=== PATIENT | male | born 1955 | race American Indian/Alaskan Native ===

== ENCOUNTER 2017-02-04 23:58 | Inpatient (IN) | payer MEDICARE ==
[2017-02-05 01:24] LABS: Anion Gap 18 mmol/L; Blood Urea Nitrogen 29 mg/dL (9-20); Calcium 8.7 mg/dL (8.4-10.2); Carbon Dioxide 27 mmol/L (22-30); Chloride 102.4 mmol/L (98-107); Glucose 133 mg/dL (75-100); Potassium 4.9 mmol/L (3.6-5.0); Sodium 142 mmol/L (137-145)
[2017-02-05 01:29] LABS: Basophils % (Auto) 0.6 % (0.0-1.8); Eosinophils % (Auto) 0.1 % (0.0-4.3); Mean Corpuscular HGB Conc 30 % (32-34); Platelet Count 264 K/mm3 (140-440); Red Blood Count 5.91 M/mm3 (3.65-5.03); White Blood Count 13.8 K/mm3 (4.5-11.0)
--- NOTE | 2017-02-05 01:30 | Emergency Department Report ---
ED General Adult HPI - General Chief complaint: Medical Clearance Stated complaint: ABNORMAL LABS Time Seen by Provider: 02/05/17 01:06 Source: EMS Mode of arrival: Stretcher Limitations: Other - History of Present Illness Initial comments: Patient is a 61-year-old male past medical history of cerebral palsy and intellectual deficiency who presents with abdominal pain and bloating. 3 is limited due to patient's mental status. Patient was having stomach bloating and his PCP ordered a KUB which showed dilated small bowel loops. Patient states that he is in pain. He is unsure when his last bowel movement was. Severity scale (0 -10): 0 - Related Data Allergies Allergy/AdvReac Type Severity Reaction Status Date / Time No Known Allergies Allergy Unverified 02/05/17 00:08 ED Review of Systems ROS: Stated complaint: ABNORMAL LABS Other details as noted in HPI Comment: Unobtainable due to pts medical conditions (intellectual deficiency) Constitutional: denies: chills, fever Eyes: denies: eye pain, eye discharge, vision change ENT: denies: ear pain, throat pain Respiratory: denies: cough, shortness of breath, wheezing Cardiovascular: denies: chest pain, palpitations Endocrine: no symptoms reported Gastrointestinal: denies: abdominal pain, nausea, diarrhea Genitourinary: denies: urgency, dysuria Musculoskeletal: denies: back pain, joint swelling, arthralgia Skin: denies: rash, lesions Neurological: denies: headache, weakness, paresthesias Psychiatric: denies: anxiety, depression Hematological/Lymphatic: denies: easy bleeding, easy bruising ED Past Medical Hx - Social History Smoking Status: Never Smoker Substance Use Type: None ED Physical Exam - General Limitations: Other General appearance: alert, in no apparent distress - Head Head exam: Present: atraumatic, normocephalic - Eye Eye exam: Present: normal appearance - ENT ENT exam: Present: mucous membranes moist - Neck Neck exam: Present: normal inspection - Respiratory Respiratory exam: Present: normal lung sounds bilaterally. Absent: respiratory distress - Cardiovascular Cardiovascular Exam: Present: regular rate, normal rhythm. Absent: systolic murmur, diastolic murmur, rubs, gallop - GI/Abdominal GI/Abdominal exam: Present: soft, normal bowel sounds - Rectal Rectal exam: Present: deferred - Extremities Exam Extremities exam: Present: normal inspection - Back Exam Back exam: Present: normal inspection - Neurological Exam Neurological exam: Present: alert, oriented X3 - Psychiatric Psychiatric exam: Present: normal affect, normal mood - Skin Skin exam: Present: warm, dry, intact, normal color. Absent: rash ED Course Vital Signs 02/05/17 00:21 Temperature 98.9 F Pulse Rate 90 Respiratory 16 Rate Blood Pressure 115/70 [Left] O2 Sat by Pulse 98 Oximetry - Consultations Consultation #1: 02/05/17 04:29 Consulted general surgeon station examiner Dr. Haynes. Patient has nothing that needs to be acutely operated on he will be seen tomorrow by the general surgeon. ED Medical Decision Making - Lab Data Result diagrams: 02/05/17 00:31 02/05/17 00:31 Lab Results 02/05/17 02/05/17 02/05/17 Range/Units 00:31 00:31 00:31 WBC 13.8 H (4.5-11.0) K/mm3 RBC 5.91 H (3.65-5.03) M/mm3 Hgb 11.4 L (11.8-15.2) gm/dl Hct 37.6 (35.5-45.6) % MCV 64 L (84-94) fl MCH 19 L (28-32) pg MCHC 30 L (32-34) % RDW 19.0 H (13.2-15.2) % Plt Count 264 (140-440) K/mm3 Lymph % (Auto) 8.9 L (13.4-35.0) % Hunt % (Auto) 14.1 H (0.0-7.3) % Eos % (Auto) 0.1 (0.0-4.3) % Baso % (Auto) 0.6 (0.0-1.8) % Lymph # 1.2 (1.2-5.4) K/mm3 Hunt # 1.9 H (0.0-0.8) K/mm3 Eos # 0.0 (0.0-0.4) K/mm3 Baso # 0.1 (0.0-0.1) K/mm3 Seg Neutrophils % 76.3 H (40.0-70.0) % Seg Neutrophils # 10.5 H (1.8-7.7) K/mm3 Sodium 142 (137-145) mmol/L Potassium 4.9 (3.6-5.0) mmol/L Chloride 102.4 (98-107) mmol/L Carbon Dioxide 27 (22-30) mmol/L Anion Gap 18 mmol/L BUN 29 H (9-20) mg/dL Creatinine 1.0 (0.8-1.5) mg/dL Estimated GFR > 60 ml/min BUN/Creatinine Ratio 29.00 % Glucose 133 H (75-100) mg/dL Calcium 8.7 (8.4-10.2) mg/dL Total Bilirubin 0.40 (0.1-1.2) mg/dL Direct Bilirubin < 0.2 (0-0.2) mg/dL Indirect Bilirubin 0.2 mg/dL AST 24 (5-40) units/L ALT 18 (7-56) units/L Alkaline Phosphatase 90 (35-129) units/L Total Protein 7.7 (6.3-8.2) g/dL Albumin 3.7 L (3.9-5) g/dL Albumin/Globulin Ratio 0.9 % Lipase 10 L (13-60) units/L - Radiology Data Radiology results: report reviewed, image reviewed CT abdomen and pelvis with contrast: Showed dilated small bowel loops concerning for either mild ileus or incomplete obstruction - Medical Decision Making Chief medical diagnosis: Ileus secondary to incomplete obstruction Differential medical diagnosis: Constipation, hypokalemia I will get CBC, CMP, blood coags, pain medication, and NG suction, fluids Discussed Dr. Haynes patient will be admitted to the hospitalist service and patient will be seen by him in the morning. Critical care attestation.: If time is entered above; I have spent that time in minutes in the direct care of this critically ill patient, excluding procedure time. ED Disposition Clinical Impression: Abdominal bloating, Ileus, Mechanical gastrointestinal obstruction Disposition: OP ADMIT IP TO THIS HOSP Is pt being admited?: Yes Does the pt Need Aspirin: No Condition: Stable
[2017-02-05 01:37] LABS: Hematocrit 37.6 % (35.5-45.6); Hemoglobin 11.4 gm/dl (11.8-15.2); Mean Corpuscular Hemoglobin 19 pg (28-32); Mean Corpuscular Volume 64 fl (84-94)
[2017-02-05 01:42] LABS: Alanine Aminotransferase 18 units/L (7-56); Albumin 3.7 g/dL (3.9-5); Albumin/Globulin Ratio 0.9 %; Alkaline Phosphatase 90 units/L (35-129); Lipase 10 units/L (13-60); Total Protein 7.7 g/dL (6.3-8.2)
[2017-02-05 01:45] LABS: Bilirubin,Direct < 0.2 mg/dL (0-0.2); Bilirubin,Indirect 0.2 mg/dL
[2017-02-05] MEDS ORDERED: NACL ONE (01:45)
--- NOTE | 2017-02-05 03:10 | Cat Scan Report ---
FINAL REPORT PROCEDURE: CT ABDOMEN PELVIS W CON TECHNIQUE: Computerized axial tomography of the abdomen and pelvis was performed after the IV injection of iodinated nonionic contrast. HISTORY: abd pain kub as outpatient showed obstruction COMPARISON: No prior studies are available for comparison. FINDINGS: Visualized lower thorax: There are fibrotic changes at the lung bases. There is a large hiatal hernia.. Liver: Normal size and attenuation. Spleen: Normal size and attenuation. Gallbladder and biliary system: Normal. Pancreas: Normal. Adrenals: Normal. Kidneys: There are bilateral kidney cysts. There are no kidney stones. There is no hydronephrosis.. GI tract: There is a hiatal hernia. There is no gastric obstruction. There is mucosal thickening of the stomach antrum which could be due to gastritis. There are dilated and distorted loops of small bowel suggesting mild ileus versus incomplete early mechanical obstruction. There is focal thickening and narrowing of the transverse colon near the splenic flexure. This could be due to spasm, contraction or possibly annular constricting neoplasm. There is nonspecific mucosal thickening of the colon proximal to this area which could be evidence of mild colitis. The appendix is normal.. Lymph nodes and mesentery: Normal. Vasculature: Normal. Bladder: Normal. Reproductive organs: Prostate is heterogeneous. The median lobe is enlarged.. Peritoneum: There is minimal ascites. There is no free air.. 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 Other: None. IMPRESSION: There are bilateral kidney cysts. There are no kidney stones. There is no hydronephrosis.. There is a hiatal hernia. There is mucosal thickening of the stomach antrum which could be due to gastritis. There are dilated and distorted loops of small bowel suggesting mild ileus versus incomplete early mechanical obstruction. There is focal thickening and narrowing of the transverse colon near the splenic flexure. This could be due to spasm, contraction or possibly annular constricting neoplasm. There is nonspecific mucosal thickening of the colon proximal to this area which could be evidence of mild colitis. The appendix is normal. There is minimal ascites. There is no free air.
[2017-02-05] MEDS ORDERED: NACL 0.9% 1000 ML 1,000 ML IV ONE (03:33)
[2017-02-05] MEDS ORDERED: TYLENOL PO PRN (05:03)
[2017-02-05] MEDS ORDERED: ZOFRAN IV PRN (05:03)
--- NOTE | 2017-02-05 05:03 | History and Physical Report ---
History of Present Illness Date of examination: 02/05/17 History of present illness: 61-year-old man with a history of mental retardation, cerebral palsy, seizure was sent to the emergency room for abnormal KUB which showed moderatesmall bowel loops. Patient is unable to give a history, review of systems unobtainable PAST MEDICAL HISTORY:mental retardation, cerebral palsy, seizure PAST SURGICAL HISTORY: Unknown FAMILY HISTORY:Unknown SOCIAL HISTORY: longterm resident Medications and Allergies Allergies Allergy/AdvReac Type Severity Reaction Status Date / Time No Known Allergies Allergy Unverified 02/05/17 00:08 Exam - Physical Exam Narrative exam: Gen. appearance: Patient lying in bed in no acute distress HEENT: Normocephalic/atraumatic, pupils equal round reactive to light, extra alkaline movement intact, no scleral icterus, no JVD or thyromegaly or nodule, neck is supple, mucous membrane moist, no erythema or exudate Heart: S1-S2, regular rate and rhythm Lungs: Clear to auscultation bilateral breathing comfortable Abdomen: decrease bowel sounds, nontender,distended, no organomegaly Extremities: No edema, cyanosis, clubbing Neuro:: Oriented 3 , cranial nerves II-12 intact, speech, motor intact Skin: No rash, nodules, warm dry - Constitutional Vitals: Temp Pulse Resp BP Pulse Ox 98.9 F 90 16 115/70 98 02/05/17 00:21 02/05/17 00:21 02/05/17 00:21 02/05/17 00:21 02/05/17 00:21 Results - Labs CBC & Chem 7: 02/05/17 00:31 02/05/17 00:31 Labs: Abnormal lab results 02/05/17 02/05/17 02/05/17 Range/Units 00:31 00:31 00:31 WBC 13.8 H (4.5-11.0) K/mm3 RBC 5.91 H (3.65-5.03) M/mm3 Hgb 11.4 L (11.8-15.2) gm/dl MCV 64 L (84-94) fl MCH 19 L (28-32) pg MCHC 30 L (32-34) % RDW 19.0 H (13.2-15.2) % Lymph % (Auto) 8.9 L (13.4-35.0) % [place] % (Auto) 14.1 H (0.0-7.3) % [place] # 1.9 H (0.0-0.8) K/mm3 Seg Neutrophils % 76.3 H (40.0-70.0) % Seg Neutrophils # 10.5 H (1.8-7.7) K/mm3 BUN 29 H (9-20) mg/dL Glucose 133 H (75-100) mg/dL Albumin 3.7 L (3.9-5) g/dL Lipase 10 L (13-60) units/L - Imaging and Cardiology CT scan - abdomen: report reviewed CT scan - pelvis: report reviewed Assessment and Plan Assessment Incomplete small bowel obstruction Cerebral palsy Mental retardation Seizure Plan Admit to medicine Start IV fluids, bowel rest, NG tube to suction, consult surgery Dr. Haynes is aware of the patient DVT prophylaxis
[2017-02-05] MEDS ORDERED: NACL 0.45% 1000 ML 1,000 ML IV SCH (06:00)
[2017-02-05] MEDS: LOVENOX SUB-Q SCH (10:40)
--- NOTE | 2017-02-05 16:17 | Event Note ---
Date: 02/05/17 Pt seen and examined. will cont plan of care as dictated in H and p. will place on pepcid iv and change iv fluid to D5NS
--- NOTE | 2017-02-05 17:36 | XRay Report ---
FINAL REPORT PROCEDURE: XR ABDOMEN 1V AP TECHNIQUE: Abdominal radiograph, single supine AP view. HISTORY: Evaluate small bowel obstruction COMPARISON: No prior studies are available for comparison. FINDINGS: There are multiple gas distended loops of small bowel seen in the mid abdomen. No definite free air is seen. The colon is also moderately gas filled. There are no upright views are decubitus views for evaluation. The differential includes small bowel obstruction versus ileus. Marked deformity of the right hip is visualized. There appears to been previous fracture with fusion of the proximal femur with the right hemipelvis. Contrast is seen in the urinary bladder. IMPRESSION: Small bowel gas pattern and large bowel gas pattern as described. The differential includes small bowel obstruction versus diffuse ileus. Deformity right hip appears to be related to old fracture and fusion of the right hip with the right hemipelvis.
[2017-02-05] MEDS: D5NS 1,000 ML IV SCH (18:47)
[2017-02-05] MEDS: PEPCID IV SCH (22:13)
[2017-02-05] MEDS: REGLAN IV SCH (22:13)
--- NOTE | 2017-02-06 03:22 | Consultation ---
HISTORY OF PRESENT ILLNESS: This man apparently was seen in the Emergency Room this morning. He is a 61-year-old black male, who is mentally retarded. He was brought to the hospital apparently because of abdominal distention and nausea. He gives a history of cerebral palsy with seizures. All this was taken from the history and physical examination that was done on him by Dr. Mathew. ALLERGIES: Allergic reactions were denied. VITAL SIGNS: Stable. His temperature is 98.9, pulse is 90, respiratory rate of 16, and blood pressure is 115/70. PHYSICAL EXAMINATION: GENERAL: Showed a moderately obese black male, who is mentally retarded, could not really make communication with him. I tried to call his friend, Karen [phone]. I called and there was no answer. HEENT: Essentially nonrevealing. NECK: Supple. No bruits there. HEART: Heart sounds were normal. The breath sounds were normal ABDOMEN: Moderately to severely protuberant, it is moderately soft with hypoactive bowel sounds. EXTREMITIES: Showed no evidence of any edema. IMPRESSION: Abdominal distention with nausea and KUB and a CAT scan that showed evidence of dilated small bowel loops. There is no specific area of obstruction. There is hiatal hernia. There is some thickening and narrowing in the transverse colon at the level of the splenic flexure. I believe this needs to be addressed further. KUB done a while ago showed just diffuse moderately dilated small bowel loops. There was air in the descending colon. There was no evidence of mechanical obstruction at the present time. I believe that we need to keep him n.p.o. with IV fluids and NG suction. Start him on Reglan and we will go from there. He is already on Lovenox, Pepcid and Zofran. JOB# [id number] JACQUELINE/CLOVER
[2017-02-06] MEDS: D5NS 1,000 ML IV SCH ×2 (07:24→20:45)
[2017-02-06] MEDS: REGLAN IV SCH ×3 (08:07→17:50)
[2017-02-06] MEDS: PEPCID IV SCH (09:57)
[2017-02-06] MEDS: LOVENOX SUB-Q SCH (09:57)
--- NOTE | 2017-02-06 10:27 | XRay Report ---
Single view abdomen: History: Small bowel obstruction. Findings: Compared to 02/05/17. Distended loops of small bowel with air in large bowel. No significant interval change. No radiopaque calculus or abnormal calcification. Impression: No significant interval change.
[2017-02-06 10:51] LABS: Hematocrit 34.3 % (35.5-45.6); Hemoglobin 10.6 gm/dl (11.8-15.2); Mean Corpuscular HGB Conc 31 % (32-34); Platelet Count 221 K/mm3 (140-440); Red Blood Count 5.31 M/mm3 (3.65-5.03); White Blood Count 7.5 K/mm3 (4.5-11.0)
[2017-02-06 10:53] LABS: Mean Corpuscular Hemoglobin 20 pg (28-32); Mean Corpuscular Volume 65 fl (84-94)
[2017-02-06 11:06] LABS: Anion Gap 16 mmol/L; BUN/Creatinine Ratio 21.25; Blood Urea Nitrogen 17 mg/dL (9-20); Carbon Dioxide 26 mmol/L (22-30); Chloride 106.4 mmol/L (98-107); Glucose 124 mg/dL (75-100); Potassium 4.5 mmol/L (3.6-5.0); Sodium 144 mmol/L (137-145)
--- NOTE | 2017-02-06 11:49 | Progress Note ---
Assessment and Plan Small bowel ileus - IV fluids, bowel rest, unable to do NG suction, - Abdominal x-rays showed bowel loops distention - No specific area of obstruction on CAT scan - Placed on Reglan, surgery following Cerebral palsy - Continue supportive care Mental retardation - No acute issue, supportive care Seizure - Ativan as needed - Resume seizure medications when patient can take by mouth DVT prophylaxis - Lovenox Brief history: 61-year-old man with a history of mental retardation, cerebral palsy, seizure was sent to the emergency room for abnormal KUB which showed moderately distended bowel loops. Subjective Date of service: 02/06/17 Interval history: Patient seen and examined. Medical records and medication list reviewed. No acute event overnight noted by the RN. Patient denies any chest pain or difficulty breathing. Patient is NPO now NG suction could not be started as there was difficulty to place a NG tube Objective - Exam Narrative Exam: GENERAL: well-developed and well-nourished AAM lying on bed appeared to be in no discomfort. HEENT: Normocephalic. Atraumatic. No conjunctival congestion or icterus. Patient has moist mucous membranes. NECK: Supple. Trachea midline. CHEST/LUNGS: Clear to auscultated bilaterally, breathing nonlabored. No wheezes crackles or rhonchi. HEART/CARDIOVASCULAR: Regular in rate and rhythm. S1 and S2 positive. ABDOMEN: Abdomen is soft, nontender. Patient has + bowel sounds. SKIN: There is no rash. Warm and dry. NEURO: Follows simple command. EXTRIMITY: No edema, no cyanosis or clubbing. PSYCH: mentally retarded. - Constitutional Vitals: Vital Signs - 12hr 02/06/17 02/06/17 02/06/17 01:18 02:18 05:00 Temperature 98.8 F Pulse Rate 88 Respiratory 18 18 18 Rate Blood Pressure 127/78 O2 Sat by Pulse 98 Oximetry 02/06/17 02/06/17 07:28 07:53 Temperature 98.8 F Pulse Rate 91 H Respiratory 18 Rate Blood Pressure 136/86 O2 Sat by Pulse 98 96 Oximetry - Labs CBC & Chem 7: 02/06/17 10:32 02/06/17 10:32 Labs: Abnormal lab results 02/06/17 02/06/17 Range/Units 10:32 10:32 RBC 5.31 H (3.65-5.03) M/mm3 Hgb 10.6 L (11.8-15.2) gm/dl Hct 34.3 L (35.5-45.6) % MCV 65 L (84-94) fl MCH 20 L (28-32) pg MCHC 31 L (32-34) % RDW 19.0 H (13.2-15.2) % Glucose 124 H (75-100) mg/dL Calcium 8.0 L (8.4-10.2) mg/dL
[2017-02-06 12:58] LABS: Blastocytes % (Manual) 0 %
[2017-02-06 13:02] LABS: Anisocytosis 1+; Basophils % (Manual) 0 % (0.0-1.8); Diff Status Complete; Hypochromasia 1+; Platelet Estimate Consistent w Auto
--- NOTE | 2017-02-07 07:25 | Event Note ---
Date: 02/07/17 Pt seen and examined, difficulty in placing NG? no NG in place (patient pulls them out) resting comfortably in bed, abd distended, but no rebound or guarding , CT and films reviewed, WBC normalized, suspect illeus, recc conservative management, NG a good idea.
[2017-02-07] MEDS: REGLAN IV SCH ×2 (08:22)
[2017-02-07] MEDS: LOVENOX SUB-Q SCH (10:28)
[2017-02-07] MEDS: PEPCID IV SCH ×3 (10:28→23:30)
[2017-02-07] MEDS: D5NS 1,000 ML IV SCH (10:29)
[2017-02-07] MEDS ORDERED: FLEET PR ONE (13:02)
--- NOTE | 2017-02-07 13:46 | XRay Report ---
AP CHEST: HISTORY: chest pain AP view of the chest demonstrates a normal mediastinal and cardiac contour with clear lungs and normal bony and soft tissue structures. There appears to be a nasogastric tube in place. There are multiple surgical clips along the right side of the mediastinum, correlate with history. IMPRESSION: No acute cardiopulmonary process identified.
--- NOTE | 2017-02-07 14:06 | XRay Report ---
ABDOMEN ONE VIEW INDICATION: Small bowel obstruction. COMPARISON: Yesterday. FINDINGS: Portable, single, frontal abdominal radiograph, 1:26 PM, 02/07/2017 again demonstrates air throughout small bowel with maximum caliber of approximately 4.2 cm. Nonobstructive colonic pattern. Lung bases incompletely imaged. Stable demineralized bones, including partially imaged old right hip deformity and slight lumbar levocurvature apex about L2. CONCLUSION: Small bowel possible ileus or obstruction with few other findings, as above. Thank you for the opportunity to participate in this patient's care.
--- NOTE | 2017-02-07 14:57 | Anesthesia Consultation ---
Anesthesia Consult and Med Hx Date of service: 02/07/17 - Airway ROM Head & Neck: Adequate Mental/Hyoid Distance: Adequate - Pulmonary Exam CTA: Yes - Cardiac Exam Cardiac Exam: RRR - Pre-Operative Health Status ASA Pre-Surgery Classification: ASA3 Proposed Anesthetic Plan: General - Central Nervous System Hx Seizures: Yes - Additional Comments Anesthesia Medical History Comments: mental retardation, unable to really communicate. Able to tell you how he feels. Cerebral palsy. sister said he has half a lung from lung disease but couldnt remember what side. Patient would not open his mouth, unable to do airway eval. Looked normal from external view. All teeth are his own.
--- NOTE | 2017-02-07 14:58 | Anesthesia Day of Surgery ---
Anesthesia Day of Surgery - Day of Surgery Patient Examined: Yes Patient H&P Reviewed: Yes Patient is NPO: Yes
--- NOTE | 2017-02-07 15:39 | Progress Note ---
Assessment and Plan Small bowel ileus - IV fluids, bowel rest, unable to do NG suction, - Abdominal x-rays showed bowel loops distention - No specific area of obstruction on CAT scan - Placed on Reglan, Plan for compression gastrostomy today by surgery Cerebral palsy - Continue supportive care Mental retardation - No acute issue, supportive care Seizure - Ativan as needed - Resume seizure medications when patient can take by mouth DVT prophylaxis - Lovenox Brief history: 61-year-old man with a history of mental retardation, cerebral palsy, seizure was sent to the emergency room for abnormal KUB which showed moderately distended bowel loops. Subjective Date of service: 02/07/17 Interval history: Patient seen and examined. Medical records and medication list reviewed. No acute event overnight noted by the RN. Patient denies any chest pain or difficulty breathing. Patient is NPO now NG suction could not be started as there was difficulty to place a NG tube Plan for compression gastrostomy today by surgery, family updated at bedside Objective - Exam Narrative Exam: GENERAL: well-developed and well-nourished AAM lying on bed appeared to be in no discomfort. HEENT: Normocephalic. Atraumatic. No conjunctival congestion or icterus. Patient has moist mucous membranes. NECK: Supple. Trachea midline. CHEST/LUNGS: Clear to auscultated bilaterally, breathing nonlabored. No wheezes crackles or rhonchi. HEART/CARDIOVASCULAR: Regular in rate and rhythm. S1 and S2 positive. ABDOMEN: Abdomen is distended, nontender. Patient has hypoactive bowel sounds. SKIN: There is no rash. Warm and dry. NEURO: Follows simple command. EXTRIMITY: No edema, no cyanosis or clubbing. PSYCH: mentally retarded. - Constitutional Vitals: Vital Signs - 12hr 02/07/17 02/07/17 02/07/17 04:30 04:31 11:00 Temperature 98.2 F 99.6 F Pulse Rate 81 82 78 Respiratory 18 18 Rate Blood Pressure 130/79 Blood Pressure 144/78 [Left] O2 Sat by Pulse 97 95 97 Oximetry 02/07/17 14:30 Temperature 99.5 F Pulse Rate 75 Respiratory 18 Rate Blood Pressure Blood Pressure 145/84 [Left] O2 Sat by Pulse 92 Oximetry - Labs CBC & Chem 7: 02/06/17 10:32 02/06/17 10:32
[2017-02-07] MEDS ORDERED: DIPRIVAN 10 MG/ML IV ONE (18:10)
[2017-02-07] MEDS ORDERED: SUBLIMAZE ONE (18:10)
[2017-02-07] MEDS ORDERED: ZEMURON IV ONE (18:11)
[2017-02-07] MEDS ORDERED: XYLOCAINE MPF 2% ONE (18:11)
--- NOTE | 2017-02-07 18:39 | Progress Note ---
Subjective Narrative: multiple ettemts at inserting an NG tube by nursing and medical staff to no avail tolked to family and sister a s to the need for a compression gastrostomy . family agreed , willproceed , Pt needs restrains post op , eventually a GI w/ up . Objective Vital Signs - 12hr 02/07/17 02/07/17 11:00 14:30 Temperature 99.6 F 99.5 F Pulse Rate 78 75 Respiratory 18 18 Rate Blood Pressure 144/78 145/84 [Left] O2 Sat by Pulse 97 92 Oximetry - Labs 02/06/17 10:32 02/06/17 10:32
[2017-02-07] MEDS ORDERED: ANCEF ONE ×2 (18:54)
[2017-02-07] MEDS ORDERED: ROBINUL ONE (19:17)
[2017-02-07] MEDS ORDERED: NEOSTIGMINE ONE (19:17)
[2017-02-07] MEDS ORDERED: ZOFRAN ONE (19:17)
--- NOTE | 2017-02-07 20:13 | Post Anesthesia Evaluation ---
- Post Anesthesia Evaluation Patient Participated: No (mental retardation) Airway Patent: Yes Stable Respiratory Function: Yes Nausea/Vomiting: No Temp > 96.8F: Yes Pain Manageable: Yes Adequeate Hydration: Yes Anesthesia Complications: No
[2017-02-07] MEDS: DILAUDID IV PRN ×2 (20:30→20:40)
[2017-02-08] MEDS: DILAUDID IV PRN (01:08)
[2017-02-08] MEDS: ATIVAN IV PRN ×2 (05:27→11:55)
--- NOTE | 2017-02-08 08:43 | XRay Report ---
X-RAY G-TUBE STUDY History: Verify G-tube placement. Findings: [employer] film demonstrates a PEG tube in the epigastric region and a nasogastric tube which terminates in the mid stomach. The bowel gas pattern is unremarkable. A second image of the abdomen was obtained following injection of oral contrast through the PEG tube. Contrast is identified within the stomach and duodenum. Most of the oral contrast refluxes into the esophagus. There is no evidence for extravasation or obstruction. Impression: The PEG tube terminates in the body of the stomach. Most of the contrast agent refluxes into the esophagus.
[2017-02-08] MEDS: LOVENOX SUB-Q SCH (09:30)
[2017-02-08] MEDS: PEPCID IV SCH ×2 (11:55→22:51)
[2017-02-08 14:36] LABS: Mean Corpuscular HGB Conc 30 % (32-34); Red Blood Count 5.34 M/mm3 (3.65-5.03); Red Cell Distribution Width 19.5 % (13.2-15.2); White Blood Count 3.9 K/mm3 (4.5-11.0)
[2017-02-08 14:38] LABS: Alanine Aminotransferase 21 units/L (7-56); Albumin 3.1 g/dL (3.9-5); Albumin/Globulin Ratio 0.8 %; Alkaline Phosphatase 80 units/L (35-129); Anion Gap 18 mmol/L; Blood Urea Nitrogen 9 mg/dL (9-20); Carbon Dioxide 22 mmol/L (22-30); Chloride 104.4 mmol/L (98-107); Glucose 125 mg/dL (75-100); Hematocrit 35.5 % (35.5-45.6); Hemoglobin 10.6 gm/dl (11.8-15.2); Mean Corpuscular Hemoglobin 20 pg (28-32); Mean Corpuscular Volume 67 fl (84-94); Potassium 4.9 mmol/L (3.6-5.0); Sodium 139 mmol/L (137-145); Total Protein 6.9 g/dL (6.3-8.2)
[2017-02-08 15:29] LABS: Platelet Count 23 K/mm3 (140-440)
--- NOTE | 2017-02-08 17:12 | Progress Note ---
Subjective Narrative: looks ok , no agitation abd softer . G tube in place seen on tube placement study .will start feeding by the tube , Objective Vital Signs - 12hr 02/08/17 02/08/17 08:05 10:05 Temperature 98.4 F Pulse Rate 82 Respiratory 20 Rate Blood Pressure 141/85 [Left] O2 Sat by Pulse 96 2 L Oximetry - Labs 02/08/17 13:37 02/08/17 13:37 Diabetes panel 02/08/17 Range/Units 13:37 Sodium 139 (137-145) mmol/L Potassium 4.9 (3.6-5.0) mmol/L Chloride 104.4 (98-107) mmol/L Carbon Dioxide 22 (22-30) mmol/L BUN 9 (9-20) mg/dL Creatinine 0.6 L (0.8-1.5) mg/dL Glucose 125 H (75-100) mg/dL Calcium 8.0 L (8.4-10.2) mg/dL AST 30 (5-40) units/L ALT 21 (7-56) units/L Alkaline Phosphatase 80 (35-129) units/L Total Protein 6.9 (6.3-8.2) g/dL Albumin 3.1 L (3.9-5) g/dL Calcium panel 02/08/17 Range/Units 13:37 Calcium 8.0 L (8.4-10.2) mg/dL Albumin 3.1 L (3.9-5) g/dL Pituitary panel 02/08/17 Range/Units 13:37 Sodium 139 (137-145) mmol/L Potassium 4.9 (3.6-5.0) mmol/L Chloride 104.4 (98-107) mmol/L Carbon Dioxide 22 (22-30) mmol/L BUN 9 (9-20) mg/dL Creatinine 0.6 L (0.8-1.5) mg/dL Glucose 125 H (75-100) mg/dL Calcium 8.0 L (8.4-10.2) mg/dL Adrenal panel 02/08/17 Range/Units 13:37 Sodium 139 (137-145) mmol/L Potassium 4.9 (3.6-5.0) mmol/L Chloride 104.4 (98-107) mmol/L Carbon Dioxide 22 (22-30) mmol/L BUN 9 (9-20) mg/dL Creatinine 0.6 L (0.8-1.5) mg/dL Glucose 125 H (75-100) mg/dL Calcium 8.0 L (8.4-10.2) mg/dL Total Bilirubin 0.50 (0.1-1.2) mg/dL AST 30 (5-40) units/L ALT 21 (7-56) units/L Alkaline Phosphatase 80 (35-129) units/L Total Protein 6.9 (6.3-8.2) g/dL Albumin 3.1 L (3.9-5) g/dL
[2017-02-08] MEDS ORDERED: PANCREAZE DR 10,500 UNIT FEEDTUBE PRN (17:14)
[2017-02-08] MEDS ORDERED: SODIUM BICARBONATE FEEDTUBE PRN (17:14)
[2017-02-08] MEDS ORDERED: SIMPLE SYRUP FEEDTUBE PRN ×2 (17:14)
--- NOTE | 2017-02-08 19:19 | Progress Note ---
Assessment and Plan Assessment and plan: 61-year-old AAM with a history of cerebral palsy, mental retardation, seizure disorder was sent to the emergency room for abnormal KUB which showed moderately distended bowel loops. Small bowel obstruction - unable to maintain NGT to suction - surgery consulted and will undergo decompression gastrostomy - keep nothing by mouth, IV fluids - monitor Cerebral palsy - supportive care Mental retardation Seizure disorder - ativan prn - resume antiepileptics when able to take by mouth DVT prophylaxis - lovenox History Interval history: s/p G tube placement today Hospitalist Physical - Constitutional Vitals: Temp Pulse Resp BP Pulse Ox 98.9 F 71 22 130/91 94 02/08/17 18:16 02/08/17 18:16 02/08/17 18:16 02/08/17 18:16 02/08/17 18:16 General appearance: Present: no acute distress - EENT Eyes: Present: PERRL, EOM intact - Neck Neck: Present: supple. Absent: enlarged thyroid, masses or JVD - Respiratory Respiratory effort: normal Respiratory: bilateral: CTA, negative: rhonchi, wheezing - Cardiovascular Rhythm: regular Heart Sounds: Present: S1 & S2. Absent: systolic murmur - Extremities Extremities: no ischemia - Abdominal General gastrointestinal: soft, tender, distended, hypoactive bowel sounds Localized gastrointestinal: tender: diffuse - Psychiatric Psychiatric: no intact judgment & insight Results - Labs CBC & Chem 7: 02/08/17 19:56 02/08/17 13:37 Labs: Laboratory Last Values WBC 3.9 K/mm3 (4.5-11.0) L 02/08/17 13:37 RBC 5.34 M/mm3 (3.65-5.03) H 02/08/17 13:37 Hgb 10.6 gm/dl (11.8-15.2) L 02/08/17 13:37 Hct 35.5 % (35.5-45.6) 02/08/17 13:37 MCV 67 fl (84-94) L 02/08/17 13:37 MCH 20 pg (28-32) L 02/08/17 13:37 MCHC 30 % (32-34) L 02/08/17 13:37 RDW 19.5 % (13.2-15.2) H 02/08/17 13:37 Plt Count 23 K/mm3 (140-440) L 02/08/17 13:37 Lymph % (Auto) 8.9 % (13.4-35.0) L 02/05/17 00:31 [place] % (Auto) Informaticist 02/06/17 10:32 Eos % (Auto) 0.1 % (0.0-4.3) 02/05/17 00:31 Baso % (Auto) 0.6 % (0.0-1.8) 02/05/17 00:31 Lymph # 1.2 K/mm3 (1.2-5.4) 02/05/17 00:31 [place] # 1.9 K/mm3 (0.0-0.8) H 02/05/17 00:31 Eos # 0.0 K/mm3 (0.0-0.4) 02/05/17 00:31 Baso # 0.1 K/mm3 (0.0-0.1) 02/05/17 00:31 Add Manual Diff Complete 02/06/17 10:32 Total Counted 100 02/06/17 10:32 Seg Neutrophils % 76.3 % (40.0-70.0) H 02/05/17 00:31 Seg Neuts % (Manual) 74.0 % (40.0-70.0) H 02/06/17 10:32 Band Neutrophils % 0 % 02/06/17 10:32 Lymphocytes % (Manual) 11.0 % (13.4-35.0) L 02/06/17 10:32 Reactive Lymphs % (Man) 0 % 02/06/17 10:32 Monocytes % (Manual) 14.0 % (0.0-7.3) H 02/06/17 10:32 Eosinophils % (Manual) 1.0 % (0.0-4.3) 02/06/17 10:32 Basophils % (Manual) 0 % (0.0-1.8) 02/06/17 10:32 Metamyelocytes % 0 % 02/06/17 10:32 Myelocytes % 0 % 02/06/17 10:32 Promyelocytes % 0 % 02/06/17 10:32 Blast Cells % 0 % 02/06/17 10:32 Nucleated RBC % Not Reportable 02/06/17 10:32 Seg Neutrophils # 10.5 K/mm3 (1.8-7.7) H 02/05/17 00:31 Seg Neutrophils # Man 5.6 K/mm3 (1.8-7.7) 02/06/17 10:32 Band Neutrophils # 0.0 K/mm3 02/06/17 10:32 Lymphocytes # (Manual) 0.8 K/mm3 (1.2-5.4) L 02/06/17 10:32 Abs React Lymphs (Man) 0.0 K/mm3 02/06/17 10:32 Monocytes # (Manual) 1.1 K/mm3 (0.0-0.8) H 02/06/17 10:32 Eosinophils # (Manual) 0.1 K/mm3 (0.0-0.4) 02/06/17 10:32 Basophils # (Manual) 0.0 K/mm3 (0.0-0.1) 02/06/17 10:32 Metamyelocytes # 0.0 K/mm3 02/06/17 10:32 Myelocytes # 0.0 K/mm3 02/06/17 10:32 Promyelocytes # 0.0 K/mm3 02/06/17 10:32 Blast Cells # 0.0 K/mm3 02/06/17 10:32 WBC Morphology Not Reportable 02/06/17 10:32 Hypersegmented Neuts Not Reportable 02/06/17 10:32 Hyposegmented Neuts Not Reportable 02/06/17 10:32 Hypogranular Neuts Not Reportable 02/06/17 10:32 Smudge Cells Not Reportable 02/06/17 10:32 Toxic Granulation Not Reportable 02/06/17 10:32 Toxic Vacuolation Not Reportable 02/06/17 10:32 Dohle Bodies Not Reportable 02/06/17 10:32 Pelger-Huet Anomaly Not Reportable 02/06/17 10:32 Ananda Rods Not Reportable 02/06/17 10:32 Platelet Estimate Consistent w auto 02/06/17 10:32 Clumped Platelets Not Reportable 02/06/17 10:32 Plt Clumps, EDTA Not Reportable 02/06/17 10:32 Large Platelets Not Reportable 02/06/17 10:32 Giant Platelets Not Reportable 02/06/17 10:32 Platelet Satelliting Not Reportable 02/06/17 10:32 Plt Morphology Comment Not Reportable 02/06/17 10:32 RBC Morphology Not Reportable 02/06/17 10:32 Dimorphic RBCs Not Reportable 02/06/17 10:32 Polychromasia Not Reportable 02/06/17 10:32 Hypochromasia 1+ 02/06/17 10:32 Poikilocytosis Not Reportable 02/06/17 10:32 Anisocytosis 1+ 02/06/17 10:32 Microcytosis Not Reportable 02/06/17 10:32 Macrocytosis Not Reportable 02/06/17 10:32 Spherocytes Not Reportable 02/06/17 10:32 Pappenheimer Bodies Not Reportable 02/06/17 10:32 Sickle Cells Not Reportable 02/06/17 10:32 Target Cells Not Reportable 02/06/17 10:32 Tear Drop Cells Not Reportable 02/06/17 10:32 Ovalocytes Not Reportable 02/06/17 10:32 Helmet Cells Not Reportable 02/06/17 10:32 Rosenthal-[place] Bodies Not Reportable 02/06/17 10:32 [place] Rings Not Reportable 02/06/17 10:32 Valier Cells Not Reportable 02/06/17 10:32 Bite Cells Not Reportable 02/06/17 10:32 Crenated Cell Not Reportable 02/06/17 10:32 Elliptocytes Not Reportable 02/06/17 10:32 Acanthocytes (Spur) Not Reportable 02/06/17 10:32 Rouleaux Not Reportable 02/06/17 10:32 Hemoglobin C Crystals Not Reportable 02/06/17 10:32 Schistocytes Not Reportable 02/06/17 10:32 Malaria parasites Not Reportable 02/06/17 10:32 Talib Bodies Not Reportable 02/06/17 10:32 Hem Pathologist Commnt No 02/06/17 10:32 Sodium 139 mmol/L (137-145) 02/08/17 13:37 Potassium 4.9 mmol/L (3.6-5.0) 02/08/17 13:37 Chloride 104.4 mmol/L (98-107) 02/08/17 13:37 Carbon Dioxide 22 mmol/L (22-30) 02/08/17 13:37 Anion Gap 18 mmol/L 02/08/17 13:37 BUN 9 mg/dL (9-20) 02/08/17 13:37 Creatinine 0.6 mg/dL (0.8-1.5) L 02/08/17 13:37 Estimated GFR > 60 ml/min 02/08/17 13:37 BUN/Creatinine Ratio 15.00 % 02/08/17 13:37 Glucose 125 mg/dL (75-100) H 02/08/17 13:37 Calcium 8.0 mg/dL (8.4-10.2) L 02/08/17 13:37 Total Bilirubin 0.50 mg/dL (0.1-1.2) 02/08/17 13:37 Direct Bilirubin < 0.2 mg/dL (0-0.2) 02/05/17 00:31 Indirect Bilirubin 0.2 mg/dL 02/05/17 00:31 AST 30 units/L (5-40) 02/08/17 13:37 ALT 21 units/L (7-56) 02/08/17 13:37 Alkaline Phosphatase 80 units/L (35-129) 02/08/17 13:37 Total Protein 6.9 g/dL (6.3-8.2) 02/08/17 13:37 Albumin 3.1 g/dL (3.9-5) L 02/08/17 13:37 Albumin/Globulin Ratio 0.8 % 02/08/17 13:37 Lipase 10 units/L (13-60) L 02/05/17 00:31
[2017-02-08 21:30] LABS: Mean Corpuscular HGB Conc 30 % (32-34); Platelet Count 245 K/mm3 (140-440); Red Blood Count 5.08 M/mm3 (3.65-5.03); Red Cell Distribution Width 19.1 % (13.2-15.2); White Blood Count 6.4 K/mm3 (4.5-11.0)
[2017-02-08 21:44] LABS: Mean Corpuscular Hemoglobin 20 pg (28-32); Mean Corpuscular Volume 65 fl (84-94)
[2017-02-08 22:45] LABS: Basophils % (Manual) 0 % (0.0-1.8); Blastocytes % (Manual) 0 %; Eosinophils % (Manual) 0 % (0.0-4.3)
[2017-02-08 22:47] LABS: Hypochromasia 3+; Large Platelets 1+; Ovalocytes 1+
[2017-02-08 22:48] LABS: Elliptocytes 1+; Microcytosis 1+; Platelet Estimate Consistent w Auto; Tear Drop Cells Few
[2017-02-08 22:49] LABS: Diff Status Complete
--- NOTE | 2017-02-09 02:04 | Operative Report ---
PREOPERATIVE DIAGNOSIS: Small bowel obstruction. For insertion of an NG tube. The patient will pull the tube, he is mentally retarded, as we had no way but to go and do a gastrostomy on him. PROCEDURE: Creation of a gastrostomy tube using for that purpose #24 tube. ANESTHESIA: General. BLOOD LOSS: Minimal. DESCRIPTION OF PROCEDURE: With the patient in supine position, prepped and draped in usual fashion, I made a midline incision in the epigastric area deep subcutaneous tissue all the way down to fascia, which was incised along its fibers in the midline all the way to the peritoneum that was opened. Once I was there, I could see the gastric pouch, it was way superior. I had to mobilize it inferiorly through the wound itself, at which point between 2 Jaden clamps, I was able to make 2 concentric pursestring sutures using for that purpose 3-0 Vicryl. After that maneuvering, a #24 tubing was inserted into the left mid upper abdomen and inserted in the gastrotomy after which the suture was tied in usual fashion and then tacked to the peritoneum from inside using the same material, ascertaining a good watertight suturing. We did irrigate the tube with the use of saline. There was no leak, we were satisfied. Then, the wound was closed in layers, I used #1 Vicryl interruptedly for the fascia through and through and the subcutaneous tissue with 3-0 Vicryl and the skin with 4-0 Vicryl for the intracuticular layer and a bandage. The patient was then transferred to the recovery room in good condition, going to check the placement under Gastrografin. JOB# [id number] JACQUELINE/CLOVER
[2017-02-09] MEDS: D5NS 1,000 ML IV SCH (06:47)
[2017-02-09] MEDS ORDERED: SIMPLE SYRUP FEEDTUBE PRN ×2 (09:35)
[2017-02-09] MEDS ORDERED: SODIUM BICARBONATE FEEDTUBE PRN (09:35)
[2017-02-09] MEDS ORDERED: PANCREAZE DR 10,500 UNIT FEEDTUBE PRN (09:35)
[2017-02-09] MEDS: PEPCID IV SCH (10:09)
[2017-02-09] MEDS: LOVENOX SUB-Q SCH (10:09)
--- NOTE | 2017-02-09 10:39 | Query- Nutrition ---
Dear ____Donovan Date:____02/09/17 [facility]:___Param Phone#:___[phone] Exercise your independent professional judgment when responding to query. Questions asked do not imply a particular answer is desired or expected. We greatly appreciate your clarification on this issue. Clinical Documentation States: 61 year old male was admitted on 02/05/17 The progress note (Dr. Man 02/08/17) states " Small bowel ileus - IV fluids, bowel rest, unable to do NG suction, - Abdominal x-rays showed bowel loops distention - No specific area of obstruction on CAT scan - Placed on Reglan, s/p decompression gastrostomy today by surgery Cerebral palsy - Continue supportive care Mental retardation - No acute issue, supportive care " Clinical Findings Show: Albumin: 3.1 Please select the most appropriate option 3 [] Mild Malnutrition [x] Mild - Moderate Malnutrition [] Moderate - Severe Malnutrition [] Severe Malnutrition Serum Albumin 2.8 to 3.4 g/dl or Pre-albumin 5 to 17 mg/dl1,2 Inadequate nutritional intake1,2,3,4 NPO > 5 days Weight loss: 5% in 1 month or 7.5% in 3 months or 10% in 6 months1, 3,4 BMI 16 to 18.4 or Weight <90% of ideal body weight1,2,3,4 Serum Albumin < 2.8 g/ dl1,2 Lymphocytes < 1500/ L2 Inadequate nutritional intake3, high stress e.g. major trauma, sepsis,pancreatitis, davis etc. Decubitus ulcers1,2, , skin breakdown2, easy hair pluckability2 Weight <80% standard for height2 Triceps skin fold <3 mm2 Mid-arm muscle circumference <15 cm2 Creatinine-height index <60% standard2 [ ] Cachexia [ ] Emaciated w/Malnutrition [ ] Other: [ ] Unable to determine [ ] Comment/Explanation: Present on Admission: [x ] Yes (Y) [ ] Clinically undeterminable (W) [ ] No (N) Please also document response in your Progress Notes and/or Discharge Summary and indicate if the condition was present on admission. MTDD
--- NOTE | 2017-02-09 20:42 | Progress Note ---
Assessment and Plan Assessment and plan: 61-year-old AAM with a history of cerebral palsy, mental retardation, seizure disorder was sent to the emergency room for abnormal KUB which showed moderately distended bowel loops. Small bowel obstruction - unable to maintain NGT to suction - s/p decompression gastrostomy by surgery 02/08 - scheduled for small bowel series - keep nothing by mouth, IV fluids - monitor - surgery following also Cerebral palsy - supportive care Mental retardation Seizure disorder - ativan prn - resume antiepileptics when able to take by mouth DVT prophylaxis - lovenox History Interval history: S/p gastrostomy tube placement Scheduled for small bowel series today Hospitalist Physical - Constitutional Vitals: Temp Pulse Resp BP Pulse Ox 99 F 72 20 138/89 95 02/09/17 16:38 02/09/17 16:38 02/09/17 16:38 02/09/17 16:38 02/09/17 19:53 General appearance: Present: no acute distress, well-nourished - Neck Neck: Present: supple. Absent: enlarged thyroid, masses or JVD, carotid bruits - Respiratory Respiratory effort: normal Respiratory: bilateral: CTA, negative: rhonchi, wheezing - Cardiovascular Rhythm: regular Heart Sounds: Present: S1 & S2. Absent: systolic murmur - Extremities Extremities: no ischemia - Abdominal General gastrointestinal: other (abdomen distended, but soft, diffusely tender to palpation, hypoactive bowel sounds) - Psychiatric Psychiatric: no intact judgment & insight Results - Labs CBC & Chem 7: 02/08/17 19:56 02/08/17 13:37 Labs: Laboratory Last Values WBC 6.4 K/mm3 (4.5-11.0) 02/08/17 19:56 RBC 5.08 M/mm3 (3.65-5.03) H 02/08/17 19:56 Hgb 10.0 gm/dl (11.8-15.2) L 02/08/17 19:56 Hct 33.0 % (35.5-45.6) L 02/08/17 19:56 MCV 65 fl (84-94) L 02/08/17 19:56 MCH 20 pg (28-32) L 02/08/17 19:56 MCHC 30 % (32-34) L 02/08/17 19:56 RDW 19.1 % (13.2-15.2) H 02/08/17 19:56 Plt Count 245 K/mm3 (140-440) D 02/08/17 19:56 Lymph % (Auto) 8.9 % (13.4-35.0) L 02/05/17 00:31 [place]unders % (Auto) Wood Room Supervisor 02/08/17 19:56 Eos % (Auto) 0.1 % (0.0-4.3) 02/05/17 00:31 Baso % (Auto) 0.6 % (0.0-1.8) 02/05/17 00:31 Lymph # 1.2 K/mm3 (1.2-5.4) 02/05/17 00:31 [place]unders # 1.9 K/mm3 (0.0-0.8) H 02/05/17 00:31 Eos # 0.0 K/mm3 (0.0-0.4) 02/05/17 00:31 Baso # 0.1 K/mm3 (0.0-0.1) 02/05/17 00:31 Add Manual Diff Complete 02/08/17 19:56 Total Counted 100 02/08/17 19:56 Seg Neutrophils % 76.3 % (40.0-70.0) H 02/05/17 00:31 Seg Neuts % (Manual) 72.0 % (40.0-70.0) H 02/08/17 19:56 Band Neutrophils % 0 % 02/08/17 19:56 Lymphocytes % (Manual) 9.0 % (13.4-35.0) L 02/08/17 19:56 Reactive Lymphs % (Man) 0 % 02/08/17 19:56 Monocytes % (Manual) 19.0 % (0.0-7.3) H 02/08/17 19:56 Eosinophils % (Manual) 0 % (0.0-4.3) 02/08/17 19:56 Basophils % (Manual) 0 % (0.0-1.8) 02/08/17 19:56 Metamyelocytes % 0 % 02/08/17 19:56 Myelocytes % 0 % 02/08/17 19:56 Promyelocytes % 0 % 02/08/17 19:56 Blast Cells % 0 % 02/08/17 19:56 Nucleated RBC % 1.0 % (0.0-0.9) H 02/08/17 19:56 Seg Neutrophils # 10.5 K/mm3 (1.8-7.7) H 02/05/17 00:31 Seg Neutrophils # Man 4.6 K/mm3 (1.8-7.7) 02/08/17 19:56 Band Neutrophils # 0.0 K/mm3 02/08/17 19:56 Lymphocytes # (Manual) 0.6 K/mm3 (1.2-5.4) L 02/08/17 19:56 Abs React Lymphs (Man) 0.0 K/mm3 02/08/17 19:56 Monocytes # (Manual) 1.2 K/mm3 (0.0-0.8) H 02/08/17 19:56 Eosinophils # (Manual) 0.0 K/mm3 (0.0-0.4) 02/08/17 19:56 Basophils # (Manual) 0.0 K/mm3 (0.0-0.1) 02/08/17 19:56 Metamyelocytes # 0.0 K/mm3 02/08/17 19:56 Myelocytes # 0.0 K/mm3 02/08/17 19:56 Promyelocytes # 0.0 K/mm3 02/08/17 19:56 Blast Cells # 0.0 K/mm3 02/08/17 19:56 WBC Morphology Not Reportable 02/08/17 19:56 Hypersegmented Neuts Not Reportable 02/08/17 19:56 Hyposegmented Neuts Not Reportable 02/08/17 19:56 Hypogranular Neuts Not Reportable 02/08/17 19:56 Smudge Cells Not Reportable 02/08/17 19:56 Toxic Granulation Not Reportable 02/08/17 19:56 Toxic Vacuolation Not Reportable 02/08/17 19:56 Dohle Bodies Not Reportable 02/08/17 19:56 Pelger-Huet Anomaly Not Reportable 02/08/17 19:56 Ananda Rods Not Reportable 02/08/17 19:56 Platelet Estimate Consistent w auto 02/08/17 19:56 Clumped Platelets Not Reportable 02/08/17 19:56 Plt Clumps, EDTA Not Reportable 02/08/17 19:56 Large Platelets 1+ 02/08/17 19:56 Giant Platelets Not Reportable 02/08/17 19:56 Platelet Satelliting Not Reportable 02/08/17 19:56 Plt Morphology Comment Not Reportable 02/08/17 19:56 RBC Morphology Not Reportable 02/08/17 19:56 Dimorphic RBCs Not Reportable 02/08/17 19:56 Polychromasia Not Reportable 02/08/17 19:56 Hypochromasia 3+ 02/08/17 19:56 Poikilocytosis Not Reportable 02/08/17 19:56 Anisocytosis Not Reportable 02/08/17 19:56 Microcytosis 1+ 02/08/17 19:56 Macrocytosis Not Reportable 02/08/17 19:56 Spherocytes Not Reportable 02/08/17 19:56 Pappenheimer Bodies Not Reportable 02/08/17 19:56 Sickle Cells Not Reportable 02/08/17 19:56 Target Cells Not Reportable 02/08/17 19:56 Tear Drop Cells Few 02/08/17 19:56 Ovalocytes 1+ 02/08/17 19:56 Helmet Cells Not Reportable 02/08/17 19:56 Rosenthal-[place] Bodies Not Reportable 02/08/17 19:56 [place] Rings Not Reportable 02/08/17 19:56 Zeenat Cells Not Reportable 02/08/17 19:56 Bite Cells Not Reportable 02/08/17 19:56 Crenated Cell Not Reportable 02/08/17 19:56 Elliptocytes 1+ 02/08/17 19:56 Acanthocytes (Spur) Not Reportable 02/08/17 19:56 Rouleaux Not Reportable 02/08/17 19:56 Hemoglobin C Crystals Not Reportable 02/08/17 19:56 Schistocytes Not Reportable 02/08/17 19:56 Malaria parasites Not Reportable 02/08/17 19:56 Talib Bodies Not Reportable 02/08/17 19:56 Hem Pathologist Commnt No 02/08/17 19:56 Sodium 139 mmol/L (137-145) 02/08/17 13:37 Potassium 4.9 mmol/L (3.6-5.0) 02/08/17 13:37 Chloride 104.4 mmol/L (98-107) 02/08/17 13:37 Carbon Dioxide 22 mmol/L (22-30) 02/08/17 13:37 Anion Gap 18 mmol/L 02/08/17 13:37 BUN 9 mg/dL (9-20) 02/08/17 13:37 Creatinine 0.6 mg/dL (0.8-1.5) L 02/08/17 13:37 Estimated GFR > 60 ml/min 02/08/17 13:37 BUN/Creatinine Ratio 15.00 % 02/08/17 13:37 Glucose 125 mg/dL (75-100) H 02/08/17 13:37 Calcium 8.0 mg/dL (8.4-10.2) L 02/08/17 13:37 Total Bilirubin 0.50 mg/dL (0.1-1.2) 02/08/17 13:37 Direct Bilirubin < 0.2 mg/dL (0-0.2) 02/05/17 00:31 Indirect Bilirubin 0.2 mg/dL 02/05/17 00:31 AST 30 units/L (5-40) 02/08/17 13:37 ALT 21 units/L (7-56) 02/08/17 13:37 Alkaline Phosphatase 80 units/L (35-129) 02/08/17 13:37 Total Protein 6.9 g/dL (6.3-8.2) 02/08/17 13:37 Albumin 3.1 g/dL (3.9-5) L 02/08/17 13:37 Albumin/Globulin Ratio 0.8 % 02/08/17 13:37 Lipase 10 units/L (13-60) L 02/05/17 00:31
[2017-02-10] MEDS: PEPCID IV SCH ×3 (00:01→21:31)
--- NOTE | 2017-02-10 07:35 | Fluoroscopy Report ---
Small bowel series: History: Small bowel obstruction. Findings: Barium was introduced through the gastrostomy tube. There is marked gastroesophageal reflux noted. Stomach is incompletely opacified. Transit of barium from gastroduodenum to ileocecal region was within 5-8 hours. At 8 hours there is almost complete emptying of barium noted from small bowel into the colon. Scattered Distended loops of small bowel are identified. No distention of colon is noted Impression: Probable incomplete small bowel obstruction. Suspected site of obstruction distal jejunum or proximal ileum at mid abdomen.
[2017-02-10] MEDS: LOVENOX SUB-Q SCH (12:00)
--- NOTE | 2017-02-10 15:37 | Progress Note ---
Subjective Narrative: alert and responsive abd soft UGI ? partial obstucton mid jejunum will cont observation Objective Vital Signs - 12hr 02/10/17 02/10/17 02/10/17 08:03 08:04 10:00 Temperature 99.6 F 99.0 F Respiratory 20 18 Rate Blood Pressure 134/87 O2 Sat by Pulse 95 Oximetry - Labs 02/08/17 19:56 02/08/17 13:37
--- NOTE | 2017-02-10 17:13 | XRay Report ---
SUPINE KUB: History: Small bowel obstruction. The oral contrast from the small bowel series performed yesterday has advanced into the colon. The colon is normal caliber. The bowel gas pattern is near normal on today's exam. Small bowel dilatation has decreased significantly. IMPRESSION: Significant improvement in the small bowel obstruction pattern.
--- NOTE | 2017-02-10 18:34 | Progress Note ---
Assessment and Plan Assessment and plan: 61-year-old AAM with a history of cerebral palsy, mental retardation, seizure disorder was sent to the emergency room for abnormal KUB which showed moderately distended bowel loops. Small bowel obstruction - unable to maintain NGT to suction - s/p decompression gastrostomy by surgery 02/08 - small bowel series 02/09 showing incomplete SPO - repeat KUB today with significant improvement in the small bowel obstruction pattern - keep nothing by mouth, IV fluids, avoid narcotics - monitor Cerebral palsy - supportive care Mental retardation Seizure disorder - ativan prn - resume antiepileptics when able to take by mouth DVT prophylaxis - lovenox History Interval history: S/p gastrostomy tube placement 02/08 still obstructed, but improving no family present today Hospitalist Physical - Constitutional Vitals: Temp Pulse Resp BP Pulse Ox 99.2 F 75 20 157/83 98 02/10/17 16:39 02/10/17 16:39 02/10/17 16:39 02/10/17 16:39 02/10/17 16:39 General appearance: Present: no acute distress, well-nourished - EENT Eyes: Present: PERRL, EOM intact - Neck Neck: Absent: enlarged thyroid, masses or JVD, carotid bruits - Respiratory Respiratory effort: normal Respiratory: bilateral: CTA, negative: rhonchi, wheezing - Cardiovascular Rhythm: regular Heart Sounds: Present: S1 & S2. Absent: systolic murmur - Extremities Extremities: no ischemia - Abdominal General gastrointestinal: soft, tender, distended, hypoactive bowel sounds, other (no guarding or rebound) Localized gastrointestinal: tender: diffuse - Psychiatric Psychiatric: no intact judgment & insight Results - Labs CBC & Chem 7: 02/08/17 19:56 02/08/17 13:37 Labs: Laboratory Last Values WBC 6.4 K/mm3 (4.5-11.0) 02/08/17 19:56 RBC 5.08 M/mm3 (3.65-5.03) H 02/08/17 19:56 Hgb 10.0 gm/dl (11.8-15.2) L 02/08/17 19:56 Hct 33.0 % (35.5-45.6) L 02/08/17 19:56 MCV 65 fl (84-94) L 02/08/17 19:56 MCH 20 pg (28-32) L 02/08/17 19:56 MCHC 30 % (32-34) L 02/08/17 19:56 RDW 19.1 % (13.2-15.2) H 02/08/17 19:56 Plt Count 245 K/mm3 (140-440) D 02/08/17 19:56 Lymph % (Auto) 8.9 % (13.4-35.0) L 02/05/17 00:31 [place] % (Auto) [employer] 02/08/17 19:56 Eos % (Auto) 0.1 % (0.0-4.3) 02/05/17 00:31 Baso % (Auto) 0.6 % (0.0-1.8) 02/05/17 00:31 Lymph # 1.2 K/mm3 (1.2-5.4) 02/05/17 00:31 Mobile # 1.9 K/mm3 (0.0-0.8) H 02/05/17 00:31 Eos # 0.0 K/mm3 (0.0-0.4) 02/05/17 00:31 Baso # 0.1 K/mm3 (0.0-0.1) 02/05/17 00:31 Add Manual Diff Complete 02/08/17 19:56 Total Counted 100 02/08/17 19:56 Seg Neutrophils % 76.3 % (40.0-70.0) H 02/05/17 00:31 Seg Neuts % (Manual) 72.0 % (40.0-70.0) H 02/08/17 19:56 Band Neutrophils % 0 % 02/08/17 19:56 Lymphocytes % (Manual) 9.0 % (13.4-35.0) L 02/08/17 19:56 Reactive Lymphs % (Man) 0 % 02/08/17 19:56 Monocytes % (Manual) 19.0 % (0.0-7.3) H 02/08/17 19:56 Eosinophils % (Manual) 0 % (0.0-4.3) 02/08/17 19:56 Basophils % (Manual) 0 % (0.0-1.8) 02/08/17 19:56 Metamyelocytes % 0 % 02/08/17 19:56 Myelocytes % 0 % 02/08/17 19:56 Promyelocytes % 0 % 02/08/17 19:56 Blast Cells % 0 % 02/08/17 19:56 Nucleated RBC % 1.0 % (0.0-0.9) H 02/08/17 19:56 Seg Neutrophils # 10.5 K/mm3 (1.8-7.7) H 02/05/17 00:31 Seg Neutrophils # Man 4.6 K/mm3 (1.8-7.7) 02/08/17 19:56 Band Neutrophils # 0.0 K/mm3 02/08/17 19:56 Lymphocytes # (Manual) 0.6 K/mm3 (1.2-5.4) L 02/08/17 19:56 Abs React Lymphs (Man) 0.0 K/mm3 02/08/17 19:56 Monocytes # (Manual) 1.2 K/mm3 (0.0-0.8) H 02/08/17 19:56 Eosinophils # (Manual) 0.0 K/mm3 (0.0-0.4) 02/08/17 19:56 Basophils # (Manual) 0.0 K/mm3 (0.0-0.1) 02/08/17 19:56 Metamyelocytes # 0.0 K/mm3 02/08/17 19:56 Myelocytes # 0.0 K/mm3 02/08/17 19:56 Promyelocytes # 0.0 K/mm3 02/08/17 19:56 Blast Cells # 0.0 K/mm3 02/08/17 19:56 WBC Morphology Not Reportable 02/08/17 19:56 Hypersegmented Neuts Not Reportable 02/08/17 19:56 Hyposegmented Neuts Not Reportable 02/08/17 19:56 Hypogranular Neuts Not Reportable 02/08/17 19:56 Smudge Cells Not Reportable 02/08/17 19:56 Toxic Granulation Not Reportable 02/08/17 19:56 Toxic Vacuolation Not Reportable 02/08/17 19:56 Dohle Bodies Not Reportable 02/08/17 19:56 Pelger-Huet Anomaly Not Reportable 02/08/17 19:56 Ananda Rods Not Reportable 02/08/17 19:56 Platelet Estimate Consistent w auto 02/08/17 19:56 Clumped Platelets Not Reportable 02/08/17 19:56 Plt Clumps, EDTA Not Reportable 02/08/17 19:56 Large Platelets 1+ 02/08/17 19:56 Giant Platelets Not Reportable 02/08/17 19:56 Platelet Satelliting Not Reportable 02/08/17 19:56 Plt Morphology Comment Not Reportable 02/08/17 19:56 RBC Morphology Not Reportable 02/08/17 19:56 Dimorphic RBCs Not Reportable 02/08/17 19:56 Polychromasia Not Reportable 02/08/17 19:56 Hypochromasia 3+ 02/08/17 19:56 Poikilocytosis Not Reportable 02/08/17 19:56 Anisocytosis Not Reportable 02/08/17 19:56 Microcytosis 1+ 02/08/17 19:56 Macrocytosis Not Reportable 02/08/17 19:56 Spherocytes Not Reportable 02/08/17 19:56 Pappenheimer Bodies Not Reportable 02/08/17 19:56 Sickle Cells Not Reportable 02/08/17 19:56 Target Cells Not Reportable 02/08/17 19:56 Tear Drop Cells Few 02/08/17 19:56 Ovalocytes 1+ 02/08/17 19:56 Helmet Cells Not Reportable 02/08/17 19:56 Rosenthal-[place] Bodies Not Reportable 02/08/17 19:56 [place] Rings Not Reportable 02/08/17 19:56 [place] Cells Not Reportable 02/08/17 19:56 Bite Cells Not Reportable 02/08/17 19:56 Crenated Cell Not Reportable 02/08/17 19:56 Elliptocytes 1+ 02/08/17 19:56 Acanthocytes (Spur) Not Reportable 02/08/17 19:56 Rouleaux Not Reportable 02/08/17 19:56 Hemoglobin C Crystals Not Reportable 02/08/17 19:56 Schistocytes Not Reportable 02/08/17 19:56 Malaria parasites Not Reportable 02/08/17 19:56 Talib Bodies Not Reportable 02/08/17 19:56 Hem Pathologist Commnt No 02/08/17 19:56 Sodium 139 mmol/L (137-145) 02/08/17 13:37 Potassium 4.9 mmol/L (3.6-5.0) 02/08/17 13:37 Chloride 104.4 mmol/L (98-107) 02/08/17 13:37 Carbon Dioxide 22 mmol/L (22-30) 02/08/17 13:37 Anion Gap 18 mmol/L 02/08/17 13:37 BUN 9 mg/dL (9-20) 02/08/17 13:37 Creatinine 0.6 mg/dL (0.8-1.5) L 02/08/17 13:37 Estimated GFR > 60 ml/min 02/08/17 13:37 BUN/Creatinine Ratio 15.00 % 02/08/17 13:37 Glucose 125 mg/dL (75-100) H 02/08/17 13:37 Calcium 8.0 mg/dL (8.4-10.2) L 02/08/17 13:37 Total Bilirubin 0.50 mg/dL (0.1-1.2) 02/08/17 13:37 Direct Bilirubin < 0.2 mg/dL (0-0.2) 02/05/17 00:31 Indirect Bilirubin 0.2 mg/dL 02/05/17 00:31 AST 30 units/L (5-40) 02/08/17 13:37 ALT 21 units/L (7-56) 02/08/17 13:37 Alkaline Phosphatase 80 units/L (35-129) 02/08/17 13:37 Total Protein 6.9 g/dL (6.3-8.2) 02/08/17 13:37 Albumin 3.1 g/dL (3.9-5) L 02/08/17 13:37 Albumin/Globulin Ratio 0.8 % 02/08/17 13:37 Lipase 10 units/L (13-60) L 02/05/17 00:31 - Imaging and Cardiology Abdominal x-ray: image reviewed (decreased small bowel dilatation)
[2017-02-11 08:04] LABS: Hemoglobin 9.9 gm/dl (11.8-15.2); Mean Corpuscular HGB Conc 32 % (32-34); Platelet Count 189 K/mm3 (140-440); Red Blood Count 4.91 M/mm3 (3.65-5.03); Red Cell Distribution Width 19.1 % (13.2-15.2); White Blood Count 6.1 K/mm3 (4.5-11.0)
[2017-02-11 08:05] LABS: Mean Corpuscular Hemoglobin 20 pg (28-32); Mean Corpuscular Volume 63 fl (84-94)
[2017-02-11 08:49] LABS: Blastocytes % (Manual) 0 %
[2017-02-11 08:50] LABS: Blood Urea Nitrogen 5 mg/dL (9-20); Burr Cells 1+; Calcium 8.2 mg/dL (8.4-10.2); Carbon Dioxide 21 mmol/L (22-30); Chloride 104.8 mmol/L (98-107); Elliptocytes Few; Glucose 99 mg/dL (75-100); Hypochromasia 1+; Microcytosis 1+; Ovalocytes 1+; Sodium 138 mmol/L (137-145)
[2017-02-11 08:51] LABS: Diff Status Complete; Helmet Cells Rare
[2017-02-11 08:52] LABS: Anion Gap 17 mmol/L
[2017-02-11 08:53] LABS: Potassium 5.2 mmol/L (3.6-5.0)
[2017-02-11] MEDS: PEPCID IV SCH ×2 (12:24→21:53)
[2017-02-11] MEDS: LOVENOX SUB-Q SCH (12:24)
[2017-02-11] MEDS ORDERED: KIONEX PO ONE (15:35)
--- NOTE | 2017-02-11 15:48 | Progress Note ---
Subjective Narrative: Barium seen in ascending colon ? ileus resolved , Pt can be discharged , will leave Romina tube for now , will see PRN Objective Vital Signs - 12hr 02/11/17 02/11/17 02/11/17 05:01 05:02 07:19 Temperature 96.7 F L 98.9 F Pulse Rate 62 62 64 Respiratory 18 22 Rate Blood Pressure 124/70 143/72 O2 Sat by Pulse 96 96 99 Oximetry 02/11/17 02/11/17 07:46 11:20 Temperature 97.0 F L Pulse Rate 72 Respiratory 18 Rate Blood Pressure 145/84 O2 Sat by Pulse 96 100 Oximetry - Labs 02/11/17 07:54 02/11/17 07:54 Diabetes panel 02/11/17 Range/Units 07:54 Sodium 138 (137-145) mmol/L Potassium 5.2 H (3.6-5.0) mmol/L Chloride 104.8 (98-107) mmol/L Carbon Dioxide 21 L (22-30) mmol/L BUN 5 L (9-20) mg/dL Creatinine 0.5 L (0.8-1.5) mg/dL Glucose 99 (75-100) mg/dL Calcium 8.2 L (8.4-10.2) mg/dL Calcium panel 02/11/17 Range/Units 07:54 Calcium 8.2 L (8.4-10.2) mg/dL Pituitary panel 02/11/17 Range/Units 07:54 Sodium 138 (137-145) mmol/L Potassium 5.2 H (3.6-5.0) mmol/L Chloride 104.8 (98-107) mmol/L Carbon Dioxide 21 L (22-30) mmol/L BUN 5 L (9-20) mg/dL Creatinine 0.5 L (0.8-1.5) mg/dL Glucose 99 (75-100) mg/dL Calcium 8.2 L (8.4-10.2) mg/dL Adrenal panel 02/11/17 Range/Units 07:54 Sodium 138 (137-145) mmol/L Potassium 5.2 H (3.6-5.0) mmol/L Chloride 104.8 (98-107) mmol/L Carbon Dioxide 21 L (22-30) mmol/L BUN 5 L (9-20) mg/dL Creatinine 0.5 L (0.8-1.5) mg/dL Glucose 99 (75-100) mg/dL Calcium 8.2 L (8.4-10.2) mg/dL
--- NOTE | 2017-02-11 20:25 | Progress Note ---
Assessment and Plan Assessment and plan: 61-year-old AAM with a history of cerebral palsy, mental retardation, seizure disorder was sent to the emergency room for abnormal KUB which showed moderately distended bowel loops. Small bowel obstruction - unable to maintain NGT to suction initially - s/p decompression gastrostomy by surgery 02/08 - small bowel series 02/09 showing incomplete SPO - repeat KUB 02/10 with significant improvement in the small bowel obstruction pattern - start full liquid diet diet through G tube today, continue IV fluids, avoid narcotics - repeat KUB in am - monitor Cerebral palsy - supportive care Mental retardation Seizure disorder - ativan prn - resume antiepileptics when able to take by mouth DVT prophylaxis - lovenox History Interval history: no events overnight, doing well Hospitalist Physical - Constitutional Vitals: Temp Pulse Resp BP Pulse Ox 98 F 65 22 135/83 99 02/11/17 17:33 02/11/17 17:33 02/11/17 17:33 02/11/17 17:33 02/11/17 19:33 General appearance: Present: no acute distress - Neck Neck: Present: supple. Absent: enlarged thyroid, masses or JVD - Respiratory Respiratory effort: normal Respiratory: bilateral: CTA, negative: rhonchi, wheezing - Cardiovascular Rhythm: regular Heart Sounds: Present: S1 & S2. Absent: systolic murmur - Extremities Extremities: no ischemia - Abdominal General gastrointestinal: soft, non-tender, non-distended, normal bowel sounds, other (G tube) - Psychiatric Psychiatric: no intact judgment & insight, no memory intact Results - Labs CBC & Chem 7: 02/11/17 07:54 02/11/17 07:54 Labs: Laboratory Last Values WBC 6.1 K/mm3 (4.5-11.0) 02/11/17 07:54 RBC 4.91 M/mm3 (3.65-5.03) 02/11/17 07:54 Hgb 9.9 gm/dl (11.8-15.2) L 02/11/17 07:54 Hct 31.0 % (35.5-45.6) L 02/11/17 07:54 MCV 63 fl (84-94) L 02/11/17 07:54 MCH 20 pg (28-32) L 02/11/17 07:54 MCHC 32 % (32-34) 02/11/17 07:54 RDW 19.1 % (13.2-15.2) H 02/11/17 07:54 Plt Count 189 K/mm3 (140-440) 02/11/17 07:54 Lymph % (Auto) 8.9 % (13.4-35.0) L 02/05/17 00:31 [place] % (Auto) Rn Hemodialysis Charge 02/11/17 07:54 Eos % (Auto) 0.1 % (0.0-4.3) 02/05/17 00:31 Baso % (Auto) 0.6 % (0.0-1.8) 02/05/17 00:31 Lymph # 1.2 K/mm3 (1.2-5.4) 02/05/17 00:31 [place]urt # 1.9 K/mm3 (0.0-0.8) H 02/05/17 00:31 Eos # 0.0 K/mm3 (0.0-0.4) 02/05/17 00:31 Baso # 0.1 K/mm3 (0.0-0.1) 02/05/17 00:31 Add Manual Diff Complete 02/11/17 07:54 Total Counted 100 02/11/17 07:54 Seg Neutrophils % 76.3 % (40.0-70.0) H 02/05/17 00:31 Seg Neuts % (Manual) 65.0 % (40.0-70.0) 02/11/17 07:54 Band Neutrophils % 2.0 % 02/11/17 07:54 Lymphocytes % (Manual) 14.0 % (13.4-35.0) 02/11/17 07:54 Reactive Lymphs % (Man) 0 % 02/11/17 07:54 Monocytes % (Manual) 14.0 % (0.0-7.3) H 02/11/17 07:54 Eosinophils % (Manual) 4.0 % (0.0-4.3) 02/11/17 07:54 Basophils % (Manual) 1.0 % (0.0-1.8) 02/11/17 07:54 Metamyelocytes % 0 % 02/11/17 07:54 Myelocytes % 0 % 02/11/17 07:54 Promyelocytes % 0 % 02/11/17 07:54 Blast Cells % 0 % 02/11/17 07:54 Nucleated RBC % Not Reportable 02/11/17 07:54 Seg Neutrophils # 10.5 K/mm3 (1.8-7.7) H 02/05/17 00:31 Seg Neutrophils # Man 4.0 K/mm3 (1.8-7.7) 02/11/17 07:54 Band Neutrophils # 0.1 K/mm3 02/11/17 07:54 Lymphocytes # (Manual) 0.9 K/mm3 (1.2-5.4) L 02/11/17 07:54 Abs React Lymphs (Man) 0.0 K/mm3 02/11/17 07:54 Monocytes # (Manual) 0.9 K/mm3 (0.0-0.8) H 02/11/17 07:54 Eosinophils # (Manual) 0.2 K/mm3 (0.0-0.4) 02/11/17 07:54 Basophils # (Manual) 0.1 K/mm3 (0.0-0.1) 02/11/17 07:54 Metamyelocytes # 0.0 K/mm3 02/11/17 07:54 Myelocytes # 0.0 K/mm3 02/11/17 07:54 Promyelocytes # 0.0 K/mm3 02/11/17 07:54 Blast Cells # 0.0 K/mm3 02/11/17 07:54 WBC Morphology Not Reportable 02/11/17 07:54 Hypersegmented Neuts Not Reportable 02/11/17 07:54 Hyposegmented Neuts Not Reportable 02/11/17 07:54 Hypogranular Neuts Not Reportable 02/11/17 07:54 Smudge Cells Not Reportable 02/11/17 07:54 Toxic Granulation Not Reportable 02/11/17 07:54 Toxic Vacuolation Not Reportable 02/11/17 07:54 Dohle Bodies Not Reportable 02/11/17 07:54 Pelger-Huet Anomaly Not Reportable 02/11/17 07:54 Ananda Rods Not Reportable 02/11/17 07:54 Platelet Estimate Appears normal 02/11/17 07:54 Clumped Platelets Not Reportable 02/11/17 07:54 Plt Clumps, EDTA Not Reportable 02/11/17 07:54 Large Platelets Not Reportable 02/11/17 07:54 Giant Platelets Not Reportable 02/11/17 07:54 Platelet Satelliting Not Reportable 02/11/17 07:54 Plt Morphology Comment Not Reportable 02/11/17 07:54 RBC Morphology Not Reportable 02/11/17 07:54 Dimorphic RBCs Not Reportable 02/11/17 07:54 Polychromasia Not Reportable 02/11/17 07:54 Hypochromasia 1+ 02/11/17 07:54 Poikilocytosis Not Reportable 02/11/17 07:54 Anisocytosis Not Reportable 02/11/17 07:54 Microcytosis 1+ 02/11/17 07:54 Macrocytosis Not Reportable 02/11/17 07:54 Spherocytes Not Reportable 02/11/17 07:54 Pappenheimer Bodies Not Reportable 02/11/17 07:54 Sickle Cells Not Reportable 02/11/17 07:54 Target Cells Not Reportable 02/11/17 07:54 Tear Drop Cells Not Reportable 02/11/17 07:54 Ovalocytes 1+ 02/11/17 07:54 Helmet Cells Rare 02/11/17 07:54 Rosenthal-[place] Bodies Not Reportable 02/11/17 07:54 [place] Rings Not Reportable 02/11/17 07:54 [place] Cells 1+ 02/11/17 07:54 Bite Cells Not Reportable 02/11/17 07:54 Crenated Cell Not Reportable 02/11/17 07:54 Elliptocytes Few 02/11/17 07:54 Acanthocytes (Spur) Not Reportable 02/11/17 07:54 Rouleaux Not Reportable 02/11/17 07:54 Hemoglobin C Crystals Not Reportable 02/11/17 07:54 Schistocytes Not Reportable 02/11/17 07:54 Malaria parasites Not Reportable 02/11/17 07:54 Talib Bodies Not Reportable 02/11/17 07:54 Hem Pathologist Commnt No 02/11/17 07:54 Sodium 138 mmol/L (137-145) 02/11/17 07:54 Potassium 5.2 mmol/L (3.6-5.0) H 02/11/17 07:54 Chloride 104.8 mmol/L (98-107) 02/11/17 07:54 Carbon Dioxide 21 mmol/L (22-30) L 02/11/17 07:54 Anion Gap 17 mmol/L 02/11/17 07:54 BUN 5 mg/dL (9-20) L 02/11/17 07:54 Creatinine 0.5 mg/dL (0.8-1.5) L 02/11/17 07:54 Estimated GFR > 60 ml/min 02/11/17 07:54 BUN/Creatinine Ratio 10.00 % 02/11/17 07:54 Glucose 99 mg/dL (75-100) 02/11/17 07:54 POC Glucose 117 (70-105) H 02/11/17 07:22 Calcium 8.2 mg/dL (8.4-10.2) L 02/11/17 07:54 Total Bilirubin 0.50 mg/dL (0.1-1.2) 02/08/17 13:37 Direct Bilirubin < 0.2 mg/dL (0-0.2) 02/05/17 00:31 Indirect Bilirubin 0.2 mg/dL 02/05/17 00:31 AST 30 units/L (5-40) 02/08/17 13:37 ALT 21 units/L (7-56) 02/08/17 13:37 Alkaline Phosphatase 80 units/L (35-129) 02/08/17 13:37 Total Protein 6.9 g/dL (6.3-8.2) 02/08/17 13:37 Albumin 3.1 g/dL (3.9-5) L 02/08/17 13:37 Albumin/Globulin Ratio 0.8 % 02/08/17 13:37 Lipase 10 units/L (13-60) L 02/05/17 00:31
[2017-02-12 04:24] LABS: Anion Gap 15 mmol/L; BUN/Creatinine Ratio 6.66; Blood Urea Nitrogen 4 mg/dL (9-20); Calcium 8.2 mg/dL (8.4-10.2); Carbon Dioxide 24 mmol/L (22-30); Chloride 101.8 mmol/L (98-107); Glucose 111 mg/dL (75-100); Potassium 4.2 mmol/L (3.6-5.0); Sodium 137 mmol/L (137-145)
--- NOTE | 2017-02-12 08:42 | XRay Report ---
FINAL REPORT PROCEDURE: XR ABDOMEN 1V AP TECHNIQUE: Three supine views of the abdomen are submitted. HISTORY: SBO COMPARISON: Abdomen 02/05/2017 FINDINGS: Retained oral contrast is present throughout the colon and within the rectum. Multiple loops of mildly dilated small bowel are again seen, maximally 4.1 centimeters in diameter. No pathologic calcifications are identified. Degenerative changes of the spine and left hip are seen. Prior fracture of the right hip with deformity is noted. IMPRESSION: Oral contrast present diffusely throughout the colon as well as within the rectum. Persistent mildly prominent loops of small bowel possibly ileus or resolving partial SBO. Continued follow-up is recommended.
[2017-02-12] MEDS: PEPCID IV SCH ×2 (10:59→23:14)
[2017-02-12] MEDS: D5NS 1,000 ML IV SCH (10:59)
[2017-02-12] MEDS: ATIVAN IV PRN (11:45)
[2017-02-12] MEDS: LOVENOX SUB-Q SCH (14:07)
--- NOTE | 2017-02-12 17:54 | Progress Note ---
Assessment and Plan Assessment and plan: 61-year-old AAM with a history of cerebral palsy, mental retardation, seizure disorder was sent to the emergency room for abnormal KUB which showed moderately distended bowel loops. Small bowel obstruction - unable to maintain NGT to suction initially - s/p decompression gastrostomy by surgery 02/08 - small bowel series 02/09 showing incomplete SPO - repeat KUB 02/10 with significant improvement in the small bowel obstruction pattern, but on 02/12 showing oral contrast in colon/rectum and persistent preeminent small bowel loops - keep NPO, continue IV fluids, avoid narcotics - repeat KUB - monitor Cerebral palsy - supportive care Mental retardation Seizure disorder - ativan prn - seizure activity 2 today - as unable to take by mouth antiepileptics, will start Keppra IV DVT prophylaxis - lovenox History Interval history: had a seizure this morning quickly aborted with ativan Hospitalist Physical - Constitutional Vitals: Temp Pulse Resp BP Pulse Ox 98.3 F 126 H 20 144/79 76 L 02/12/17 15:40 02/12/17 15:42 02/12/17 15:43 02/12/17 15:42 02/12/17 15:42 General appearance: Present: no acute distress - EENT Eyes: Present: PERRL - Neck Neck: Present: supple. Absent: enlarged thyroid, masses or JVD - Respiratory Respiratory effort: normal Respiratory: bilateral: CTA, negative: rhonchi, wheezing - Cardiovascular Rhythm: regular Heart Sounds: Present: S1 & S2. Absent: systolic murmur - Extremities Extremities: no ischemia - Abdominal General gastrointestinal: other (abdomen distented, but soft, mildly tender to palpation, hypoactive bowel sounds, G tube) - Integumentary Integumentary: Present: warm, dry. Absent: jaundice, rash - Psychiatric Psychiatric: no intact judgment & insight, no memory intact Results - Labs CBC & Chem 7: 02/11/17 07:54 02/12/17 03:48 Labs: Laboratory Last Values WBC 6.1 K/mm3 (4.5-11.0) 02/11/17 07:54 RBC 4.91 M/mm3 (3.65-5.03) 02/11/17 07:54 Hgb 9.9 gm/dl (11.8-15.2) L 02/11/17 07:54 Hct 31.0 % (35.5-45.6) L 02/11/17 07:54 MCV 63 fl (84-94) L 02/11/17 07:54 MCH 20 pg (28-32) L 02/11/17 07:54 MCHC 32 % (32-34) 02/11/17 07:54 RDW 19.1 % (13.2-15.2) H 02/11/17 07:54 Plt Count 189 K/mm3 (140-440) 02/11/17 07:54 Lymph % (Auto) 8.9 % (13.4-35.0) L 02/05/17 00:31 [place] % (Auto) [employer] 02/11/17 07:54 Eos % (Auto) 0.1 % (0.0-4.3) 02/05/17 00:31 Baso % (Auto) 0.6 % (0.0-1.8) 02/05/17 00:31 Lymph # 1.2 K/mm3 (1.2-5.4) 02/05/17 00:31 [place] # 1.9 K/mm3 (0.0-0.8) H 02/05/17 00:31 Eos # 0.0 K/mm3 (0.0-0.4) 02/05/17 00:31 Baso # 0.1 K/mm3 (0.0-0.1) 02/05/17 00:31 Add Manual Diff Complete 02/11/17 07:54 Total Counted 100 02/11/17 07:54 Seg Neutrophils % 76.3 % (40.0-70.0) H 02/05/17 00:31 Seg Neuts % (Manual) 65.0 % (40.0-70.0) 02/11/17 07:54 Band Neutrophils % 2.0 % 02/11/17 07:54 Lymphocytes % (Manual) 14.0 % (13.4-35.0) 02/11/17 07:54 Reactive Lymphs % (Man) 0 % 02/11/17 07:54 Monocytes % (Manual) 14.0 % (0.0-7.3) H 02/11/17 07:54 Eosinophils % (Manual) 4.0 % (0.0-4.3) 02/11/17 07:54 Basophils % (Manual) 1.0 % (0.0-1.8) 02/11/17 07:54 Metamyelocytes % 0 % 02/11/17 07:54 Myelocytes % 0 % 02/11/17 07:54 Promyelocytes % 0 % 02/11/17 07:54 Blast Cells % 0 % 02/11/17 07:54 Nucleated RBC % Not Reportable 02/11/17 07:54 Seg Neutrophils # 10.5 K/mm3 (1.8-7.7) H 02/05/17 00:31 Seg Neutrophils # Man 4.0 K/mm3 (1.8-7.7) 02/11/17 07:54 Band Neutrophils # 0.1 K/mm3 02/11/17 07:54 Lymphocytes # (Manual) 0.9 K/mm3 (1.2-5.4) L 02/11/17 07:54 Abs React Lymphs (Man) 0.0 K/mm3 02/11/17 07:54 Monocytes # (Manual) 0.9 K/mm3 (0.0-0.8) H 02/11/17 07:54 Eosinophils # (Manual) 0.2 K/mm3 (0.0-0.4) 02/11/17 07:54 Basophils # (Manual) 0.1 K/mm3 (0.0-0.1) 02/11/17 07:54 Metamyelocytes # 0.0 K/mm3 02/11/17 07:54 Myelocytes # 0.0 K/mm3 02/11/17 07:54 Promyelocytes # 0.0 K/mm3 02/11/17 07:54 Blast Cells # 0.0 K/mm3 02/11/17 07:54 WBC Morphology Not Reportable 02/11/17 07:54 Hypersegmented Neuts Not Reportable 02/11/17 07:54 Hyposegmented Neuts Not Reportable 02/11/17 07:54 Hypogranular Neuts Not Reportable 02/11/17 07:54 Smudge Cells Not Reportable 02/11/17 07:54 Toxic Granulation Not Reportable 02/11/17 07:54 Toxic Vacuolation Not Reportable 02/11/17 07:54 Dohle Bodies Not Reportable 02/11/17 07:54 Pelger-Huet Anomaly Not Reportable 02/11/17 07:54 Ananda Rods Not Reportable 02/11/17 07:54 Platelet Estimate Appears normal 02/11/17 07:54 Clumped Platelets Not Reportable 02/11/17 07:54 Plt Clumps, EDTA Not Reportable 02/11/17 07:54 Large Platelets Not Reportable 02/11/17 07:54 Giant Platelets Not Reportable 02/11/17 07:54 Platelet Satelliting Not Reportable 02/11/17 07:54 Plt Morphology Comment Not Reportable 02/11/17 07:54 RBC Morphology Not Reportable 02/11/17 07:54 Dimorphic RBCs Not Reportable 02/11/17 07:54 Polychromasia Not Reportable 02/11/17 07:54 Hypochromasia 1+ 02/11/17 07:54 Poikilocytosis Not Reportable 02/11/17 07:54 Anisocytosis Not Reportable 02/11/17 07:54 Microcytosis 1+ 02/11/17 07:54 Macrocytosis Not Reportable 02/11/17 07:54 Spherocytes Not Reportable 02/11/17 07:54 Pappenheimer Bodies Not Reportable 02/11/17 07:54 Sickle Cells Not Reportable 02/11/17 07:54 Target Cells Not Reportable 02/11/17 07:54 Tear Drop Cells Not Reportable 02/11/17 07:54 Ovalocytes 1+ 02/11/17 07:54 Helmet Cells Rare 02/11/17 07:54 Rosenthal-[place] Bodies Not Reportable 02/11/17 07:54 [place] Rings Not Reportable 02/11/17 07:54 [place] Cells 1+ 02/11/17 07:54 Bite Cells Not Reportable 02/11/17 07:54 Crenated Cell Not Reportable 02/11/17 07:54 Elliptocytes Few 02/11/17 07:54 Acanthocytes (Spur) Not Reportable 02/11/17 07:54 Rouleaux Not Reportable 02/11/17 07:54 Hemoglobin C Crystals Not Reportable 02/11/17 07:54 Schistocytes Not Reportable 02/11/17 07:54 [place] parasites Not Reportable 02/11/17 07:54 [place] Bodies Not Reportable 02/11/17 07:54 Hem Pathologist Commnt No 02/11/17 07:54 Sodium 137 mmol/L (137-145) 02/12/17 03:48 Potassium 4.2 mmol/L (3.6-5.0) 02/12/17 03:48 Chloride 101.8 mmol/L (98-107) 02/12/17 03:48 Carbon Dioxide 24 mmol/L (22-30) 02/12/17 03:48 Anion Gap 15 mmol/L 02/12/17 03:48 BUN 4 mg/dL (9-20) L 02/12/17 03:48 Creatinine 0.6 mg/dL (0.8-1.5) L 02/12/17 03:48 Estimated GFR > 60 ml/min 02/12/17 03:48 BUN/Creatinine Ratio 6.66 % 02/12/17 03:48 Glucose 111 mg/dL (75-100) H 02/12/17 03:48 POC Glucose 117 (70-105) H 02/11/17 07:22 Calcium 8.2 mg/dL (8.4-10.2) L 02/12/17 03:48 Total Bilirubin 0.50 mg/dL (0.1-1.2) 02/08/17 13:37 Direct Bilirubin < 0.2 mg/dL (0-0.2) 02/05/17 00:31 Indirect Bilirubin 0.2 mg/dL 02/05/17 00:31 AST 30 units/L (5-40) 02/08/17 13:37 ALT 21 units/L (7-56) 02/08/17 13:37 Alkaline Phosphatase 80 units/L (35-129) 02/08/17 13:37 Total Protein 6.9 g/dL (6.3-8.2) 02/08/17 13:37 Albumin 3.1 g/dL (3.9-5) L 02/08/17 13:37 Albumin/Globulin Ratio 0.8 % 02/08/17 13:37 Lipase 10 units/L (13-60) L 02/05/17 00:31
[2017-02-12] MEDS: KEPPRA 500 MG in D5W 100 ML IV SCH ×2 (18:19→23:13)
[2017-02-13] MEDS: PEPCID IV SCH ×3 (08:04→21:58)
[2017-02-13] MEDS: LOVENOX SUB-Q SCH ×2 (08:05→10:00)
[2017-02-13] MEDS: D5NS 1,000 ML IV SCH (08:09)
[2017-02-13] MEDS: KEPPRA 500 MG in D5W 100 ML IV SCH ×2 (11:40→22:02)
--- NOTE | 2017-02-13 11:57 | Progress Note ---
Assessment and Plan Assessment and plan: 61-year-old AAM with a history of cerebral palsy, mental retardation, seizure disorder was sent to the emergency room for abnormal KUB which showed moderately distended bowel loops. Small bowel obstruction - unable to maintain NGT to suction initially - s/p decompression gastrostomy by surgery 02/08 - small bowel series 02/09 showing incomplete SPO - repeat KUB 02/10 with significant improvement in the small bowel obstruction pattern, but on 02/12 showing oral contrast in colon/rectum and persistent preeminent small bowel loops - keep NPO, continue IV fluids, avoid narcotics - repeat KUB in am - monitor Cerebral palsy - supportive care Mental retardation Seizure disorder - ativan prn - seizure activity 2 yesterday - as unable to take by mouth antiepileptics, started on IV Keppra DVT prophylaxis - lovenox History Interval history: no further seizure activity overnight Hospitalist Physical - Constitutional Vitals: Temp Pulse Resp BP Pulse Ox 98.4 F 79 20 115/68 96 02/13/17 07:39 02/13/17 07:39 02/13/17 07:39 02/13/17 07:39 02/13/17 07:39 General appearance: Present: no acute distress - Neck Neck: Present: supple. Absent: enlarged thyroid, masses or JVD - Respiratory Respiratory effort: normal Respiratory: bilateral: CTA, negative: rhonchi, wheezing - Cardiovascular Rhythm: regular Heart Sounds: Present: S1 & S2. Absent: systolic murmur - Extremities Extremities: no ischemia - Abdominal General gastrointestinal: soft, non-tender, distended (slightly), hypoactive bowel sounds Results - Labs CBC & Chem 7: 02/11/17 07:54 02/12/17 03:48 Labs: Laboratory Last Values WBC 6.1 K/mm3 (4.5-11.0) 02/11/17 07:54 RBC 4.91 M/mm3 (3.65-5.03) 02/11/17 07:54 Hgb 9.9 gm/dl (11.8-15.2) L 02/11/17 07:54 Hct 31.0 % (35.5-45.6) L 02/11/17 07:54 MCV 63 fl (84-94) L 02/11/17 07:54 MCH 20 pg (28-32) L 02/11/17 07:54 MCHC 32 % (32-34) 02/11/17 07:54 RDW 19.1 % (13.2-15.2) H 02/11/17 07:54 Plt Count 189 K/mm3 (140-440) 02/11/17 07:54 Lymph % (Auto) 8.9 % (13.4-35.0) L 02/05/17 00:31 Chambers % (Auto) [employer] 02/11/17 07:54 Eos % (Auto) 0.1 % (0.0-4.3) 02/05/17 00:31 Baso % (Auto) 0.6 % (0.0-1.8) 02/05/17 00:31 Lymph # 1.2 K/mm3 (1.2-5.4) 02/05/17 00:31 Chambers # 1.9 K/mm3 (0.0-0.8) H 02/05/17 00:31 Eos # 0.0 K/mm3 (0.0-0.4) 02/05/17 00:31 Baso # 0.1 K/mm3 (0.0-0.1) 02/05/17 00:31 Add Manual Diff Complete 02/11/17 07:54 Total Counted 100 02/11/17 07:54 Seg Neutrophils % 76.3 % (40.0-70.0) H 02/05/17 00:31 Seg Neuts % (Manual) 65.0 % (40.0-70.0) 02/11/17 07:54 Band Neutrophils % 2.0 % 02/11/17 07:54 Lymphocytes % (Manual) 14.0 % (13.4-35.0) 02/11/17 07:54 Reactive Lymphs % (Man) 0 % 02/11/17 07:54 Monocytes % (Manual) 14.0 % (0.0-7.3) H 02/11/17 07:54 Eosinophils % (Manual) 4.0 % (0.0-4.3) 02/11/17 07:54 Basophils % (Manual) 1.0 % (0.0-1.8) 02/11/17 07:54 Metamyelocytes % 0 % 02/11/17 07:54 Myelocytes % 0 % 02/11/17 07:54 Promyelocytes % 0 % 02/11/17 07:54 Blast Cells % 0 % 02/11/17 07:54 Nucleated RBC % Not Reportable 02/11/17 07:54 Seg Neutrophils # 10.5 K/mm3 (1.8-7.7) H 02/05/17 00:31 Seg Neutrophils # Man 4.0 K/mm3 (1.8-7.7) 02/11/17 07:54 Band Neutrophils # 0.1 K/mm3 02/11/17 07:54 Lymphocytes # (Manual) 0.9 K/mm3 (1.2-5.4) L 02/11/17 07:54 Abs React Lymphs (Man) 0.0 K/mm3 02/11/17 07:54 Monocytes # (Manual) 0.9 K/mm3 (0.0-0.8) H 02/11/17 07:54 Eosinophils # (Manual) 0.2 K/mm3 (0.0-0.4) 02/11/17 07:54 Basophils # (Manual) 0.1 K/mm3 (0.0-0.1) 02/11/17 07:54 Metamyelocytes # 0.0 K/mm3 02/11/17 07:54 Myelocytes # 0.0 K/mm3 02/11/17 07:54 Promyelocytes # 0.0 K/mm3 02/11/17 07:54 Blast Cells # 0.0 K/mm3 02/11/17 07:54 WBC Morphology Not Reportable 02/11/17 07:54 Hypersegmented Neuts Not Reportable 02/11/17 07:54 Hyposegmented Neuts Not Reportable 02/11/17 07:54 Hypogranular Neuts Not Reportable 02/11/17 07:54 Smudge Cells Not Reportable 02/11/17 07:54 Toxic Granulation Not Reportable 02/11/17 07:54 Toxic Vacuolation Not Reportable 02/11/17 07:54 Dohle Bodies Not Reportable 02/11/17 07:54 Pelger-Huet Anomaly Not Reportable 02/11/17 07:54 Ananda Rods Not Reportable 02/11/17 07:54 Platelet Estimate Appears normal 02/11/17 07:54 Clumped Platelets Not Reportable 02/11/17 07:54 Plt Clumps, EDTA Not Reportable 02/11/17 07:54 Large Platelets Not Reportable 02/11/17 07:54 Giant Platelets Not Reportable 02/11/17 07:54 Platelet Satelliting Not Reportable 02/11/17 07:54 Plt Morphology Comment Not Reportable 02/11/17 07:54 RBC Morphology Not Reportable 02/11/17 07:54 Dimorphic RBCs Not Reportable 02/11/17 07:54 Polychromasia Not Reportable 02/11/17 07:54 Hypochromasia 1+ 02/11/17 07:54 Poikilocytosis Not Reportable 02/11/17 07:54 Anisocytosis Not Reportable 02/11/17 07:54 Microcytosis 1+ 02/11/17 07:54 Macrocytosis Not Reportable 02/11/17 07:54 Spherocytes Not Reportable 02/11/17 07:54 Pappenheimer Bodies Not Reportable 02/11/17 07:54 Sickle Cells Not Reportable 02/11/17 07:54 Target Cells Not Reportable 02/11/17 07:54 Tear Drop Cells Not Reportable 02/11/17 07:54 Ovalocytes 1+ 02/11/17 07:54 Helmet Cells Rare 02/11/17 07:54 [place] Bodies Not Reportable 02/11/17 07:54 [place] Rings Not Reportable 02/11/17 07:54 Zeenat Cells 1+ 02/11/17 07:54 Bite Cells Not Reportable 02/11/17 07:54 Crenated Cell Not Reportable 02/11/17 07:54 Elliptocytes Few 02/11/17 07:54 Acanthocytes (Spur) Not Reportable 02/11/17 07:54 Rouleaux Not Reportable 02/11/17 07:54 Hemoglobin C Crystals Not Reportable 02/11/17 07:54 Schistocytes Not Reportable 02/11/17 07:54 Malaria parasites Not Reportable 02/11/17 07:54 Talib Bodies Not Reportable 02/11/17 07:54 Hem Pathologist Commnt No 02/11/17 07:54 Sodium 137 mmol/L (137-145) 02/12/17 03:48 Potassium 4.2 mmol/L (3.6-5.0) 02/12/17 03:48 Chloride 101.8 mmol/L (98-107) 02/12/17 03:48 Carbon Dioxide 24 mmol/L (22-30) 02/12/17 03:48 Anion Gap 15 mmol/L 02/12/17 03:48 BUN 4 mg/dL (9-20) L 02/12/17 03:48 Creatinine 0.6 mg/dL (0.8-1.5) L 02/12/17 03:48 Estimated GFR > 60 ml/min 02/12/17 03:48 BUN/Creatinine Ratio 6.66 % 02/12/17 03:48 Glucose 111 mg/dL (75-100) H 02/12/17 03:48 POC Glucose 117 (70-105) H 02/11/17 07:22 Calcium 8.2 mg/dL (8.4-10.2) L 02/12/17 03:48 Total Bilirubin 0.50 mg/dL (0.1-1.2) 02/08/17 13:37 Direct Bilirubin < 0.2 mg/dL (0-0.2) 02/05/17 00:31 Indirect Bilirubin 0.2 mg/dL 02/05/17 00:31 AST 30 units/L (5-40) 02/08/17 13:37 ALT 21 units/L (7-56) 02/08/17 13:37 Alkaline Phosphatase 80 units/L (35-129) 02/08/17 13:37 Total Protein 6.9 g/dL (6.3-8.2) 02/08/17 13:37 Albumin 3.1 g/dL (3.9-5) L 02/08/17 13:37 Albumin/Globulin Ratio 0.8 % 02/08/17 13:37 Lipase 10 units/L (13-60) L 02/05/17 00:31
[2017-02-14 04:57] LABS: BUN/Creatinine Ratio 7.14; Blood Urea Nitrogen 5 mg/dL (9-20); Calcium 8.6 mg/dL (8.4-10.2); Carbon Dioxide 26 mmol/L (22-30); Glucose 108 mg/dL (75-100)
[2017-02-14 04:58] LABS: Anion Gap 17 mmol/L; Chloride 101.4 mmol/L (98-107); Potassium 3.8 mmol/L (3.6-5.0); Sodium 141 mmol/L (137-145)
[2017-02-14 05:16] LABS: Basophils % (Auto) 0.7 % (0.0-1.8); Eosinophils % (Auto) 2.2 % (0.0-4.3); Hematocrit 35.6 % (35.5-45.6); Hemoglobin 10.8 gm/dl (11.8-15.2); Mean Corpuscular HGB Conc 30 % (32-34); Mean Corpuscular Hemoglobin 20 pg (28-32); Mean Corpuscular Volume 65 fl (84-94); Platelet Count 262 K/mm3 (140-440); Red Blood Count 5.49 M/mm3 (3.65-5.03); Red Cell Distribution Width 19.9 % (13.2-15.2); White Blood Count 7.8 K/mm3 (4.5-11.0)
[2017-02-14] MEDS: LOVENOX SUB-Q SCH (10:24)
[2017-02-14] MEDS: PEPCID IV SCH ×2 (10:24→22:17)
[2017-02-14] MEDS ORDERED: MILK OF MAGNESIA PO PRN (12:41)
[2017-02-14] MEDS ORDERED: DULCOLAX PR PRN (12:41)
--- NOTE | 2017-02-14 12:51 | Progress Note ---
Assessment and Plan Assessment and plan: 61-year-old AAM with a history of cerebral palsy, mental retardation, seizure disorder was sent to the emergency room for abnormal KUB which showed moderately distended bowel loops. Small bowel obstruction - unable to maintain NGT to suction initially - s/p decompression gastrostomy by surgery 02/08 - small bowel series 02/09 showing incomplete SPO - repeat KUB 02/10 with significant improvement in the small bowel obstruction pattern, but on 02/12 showing oral contrast in colon/rectum and persistent preeminent small bowel loops - now improving, tolerating liquid diet, had a bowel movement - adjust bowel regimen - monitor Cerebral palsy - supportive care Mental retardation Seizure disorder - ativan prn - seizure activity 2 02/12 - as unable to take by mouth antiepileptics, started on IV Keppra - if tolerates po well, plan to switch to by mouth DVT prophylaxis - lovenox Dispo - if stable in am, tolerates po and has BM, may return to [place] History Interval history: Doing well, tolerating liquid diet Hospitalist Physical - Constitutional Vitals: Temp Pulse Resp BP Pulse Ox 98.1 F 90 20 102/67 96 02/14/17 04:41 02/14/17 04:41 02/14/17 04:41 02/14/17 04:41 02/14/17 10:13 General appearance: Present: no acute distress - EENT Eyes: Present: PERRL, EOM intact - Neck Neck: Absent: enlarged thyroid, masses or JVD, carotid bruits - Respiratory Respiratory effort: normal Respiratory: bilateral: CTA, negative: rhonchi, wheezing - Cardiovascular Rhythm: regular Heart Sounds: Present: S1 & S2. Absent: systolic murmur - Extremities Extremities: no ischemia - Abdominal General gastrointestinal: soft, non-tender, distended (slightly), hypoactive bowel sounds - Psychiatric Psychiatric: no intact judgment & insight, no memory intact Results - Labs CBC & Chem 7: 02/14/17 04:08 02/14/17 04:08 Labs: Laboratory Last Values WBC 7.8 K/mm3 (4.5-11.0) 02/14/17 04:08 RBC 5.49 M/mm3 (3.65-5.03) H 02/14/17 04:08 Hgb 10.8 gm/dl (11.8-15.2) L 02/14/17 04:08 Hct 35.6 % (35.5-45.6) 02/14/17 04:08 MCV 65 fl (84-94) L 02/14/17 04:08 MCH 20 pg (28-32) L 02/14/17 04:08 MCHC 30 % (32-34) L 02/14/17 04:08 RDW 19.9 % (13.2-15.2) H 02/14/17 04:08 Plt Count 262 K/mm3 (140-440) 02/14/17 04:08 Lymph % (Auto) 15.3 % (13.4-35.0) 02/14/17 04:08 [place] % (Auto) 11.2 % (0.0-7.3) H 02/14/17 04:08 Eos % (Auto) 2.2 % (0.0-4.3) 02/14/17 04:08 Baso % (Auto) 0.7 % (0.0-1.8) 02/14/17 04:08 Lymph # 1.2 K/mm3 (1.2-5.4) 02/14/17 04:08 [place]ett # 0.9 K/mm3 (0.0-0.8) H 02/14/17 04:08 Eos # 0.2 K/mm3 (0.0-0.4) 02/14/17 04:08 Baso # 0.1 K/mm3 (0.0-0.1) 02/14/17 04:08 Add Manual Diff Complete 02/11/17 07:54 Total Counted 100 02/11/17 07:54 Seg Neutrophils % 70.6 % (40.0-70.0) H 02/14/17 04:08 Seg Neuts % (Manual) 65.0 % (40.0-70.0) 02/11/17 07:54 Band Neutrophils % 2.0 % 02/11/17 07:54 Lymphocytes % (Manual) 14.0 % (13.4-35.0) 02/11/17 07:54 Reactive Lymphs % (Man) 0 % 02/11/17 07:54 Monocytes % (Manual) 14.0 % (0.0-7.3) H 02/11/17 07:54 Eosinophils % (Manual) 4.0 % (0.0-4.3) 02/11/17 07:54 Basophils % (Manual) 1.0 % (0.0-1.8) 02/11/17 07:54 Metamyelocytes % 0 % 02/11/17 07:54 Myelocytes % 0 % 02/11/17 07:54 Promyelocytes % 0 % 02/11/17 07:54 Blast Cells % 0 % 02/11/17 07:54 Nucleated RBC % Not Reportable 02/11/17 07:54 Seg Neutrophils # 5.5 K/mm3 (1.8-7.7) 02/14/17 04:08 Seg Neutrophils # Man 4.0 K/mm3 (1.8-7.7) 02/11/17 07:54 Band Neutrophils # 0.1 K/mm3 02/11/17 07:54 Lymphocytes # (Manual) 0.9 K/mm3 (1.2-5.4) L 02/11/17 07:54 Abs React Lymphs (Man) 0.0 K/mm3 02/11/17 07:54 Monocytes # (Manual) 0.9 K/mm3 (0.0-0.8) H 02/11/17 07:54 Eosinophils # (Manual) 0.2 K/mm3 (0.0-0.4) 02/11/17 07:54 Basophils # (Manual) 0.1 K/mm3 (0.0-0.1) 02/11/17 07:54 Metamyelocytes # 0.0 K/mm3 02/11/17 07:54 Myelocytes # 0.0 K/mm3 02/11/17 07:54 Promyelocytes # 0.0 K/mm3 02/11/17 07:54 Blast Cells # 0.0 K/mm3 02/11/17 07:54 WBC Morphology Not Reportable 02/11/17 07:54 Hypersegmented Neuts Not Reportable 02/11/17 07:54 Hyposegmented Neuts Not Reportable 02/11/17 07:54 Hypogranular Neuts Not Reportable 02/11/17 07:54 Smudge Cells Not Reportable 02/11/17 07:54 Toxic Granulation Not Reportable 02/11/17 07:54 Toxic Vacuolation Not Reportable 02/11/17 07:54 Dohle Bodies Not Reportable 02/11/17 07:54 Pelger-Huet Anomaly Not Reportable 02/11/17 07:54 Ananda Rods Not Reportable 02/11/17 07:54 Platelet Estimate Appears normal 02/11/17 07:54 Clumped Platelets Not Reportable 02/11/17 07:54 Plt Clumps, EDTA Not Reportable 02/11/17 07:54 Large Platelets Not Reportable 02/11/17 07:54 Giant Platelets Not Reportable 02/11/17 07:54 Platelet Satelliting Not Reportable 02/11/17 07:54 Plt Morphology Comment Not Reportable 02/11/17 07:54 RBC Morphology Not Reportable 02/11/17 07:54 Dimorphic RBCs Not Reportable 02/11/17 07:54 Polychromasia Not Reportable 02/11/17 07:54 Hypochromasia 1+ 02/11/17 07:54 Poikilocytosis Not Reportable 02/11/17 07:54 Anisocytosis Not Reportable 02/11/17 07:54 Microcytosis 1+ 02/11/17 07:54 Macrocytosis Not Reportable 02/11/17 07:54 Spherocytes Not Reportable 02/11/17 07:54 Pappenheimer Bodies Not Reportable 02/11/17 07:54 Sickle Cells Not Reportable 02/11/17 07:54 Target Cells Not Reportable 02/11/17 07:54 Tear Drop Cells Not Reportable 02/11/17 07:54 Ovalocytes 1+ 02/11/17 07:54 Helmet Cells Rare 02/11/17 07:54 [place] Bodies Not Reportable 02/11/17 07:54 [place] Rings Not Reportable 02/11/17 07:54 [place] Cells 1+ 02/11/17 07:54 Bite Cells Not Reportable 02/11/17 07:54 Crenated Cell Not Reportable 02/11/17 07:54 Elliptocytes Few 02/11/17 07:54 Acanthocytes (Spur) Not Reportable 02/11/17 07:54 Rouleaux Not Reportable 02/11/17 07:54 Hemoglobin C Crystals Not Reportable 02/11/17 07:54 Schistocytes Not Reportable 02/11/17 07:54 Malaria parasites Not Reportable 02/11/17 07:54 Talib Bodies Not Reportable 02/11/17 07:54 Hem Pathologist Commnt No 02/11/17 07:54 Sodium 141 mmol/L (137-145) 02/14/17 04:08 Potassium 3.8 mmol/L (3.6-5.0) 02/14/17 04:08 Chloride 101.4 mmol/L (98-107) 02/14/17 04:08 Carbon Dioxide 26 mmol/L (22-30) 02/14/17 04:08 Anion Gap 17 mmol/L 02/14/17 04:08 BUN 5 mg/dL (9-20) L 02/14/17 04:08 Creatinine 0.7 mg/dL (0.8-1.5) L 02/14/17 04:08 Estimated GFR > 60 ml/min 02/14/17 04:08 BUN/Creatinine Ratio 7.14 % 02/14/17 04:08 Glucose 108 mg/dL (75-100) H 02/14/17 04:08 POC Glucose 117 (70-105) H 02/11/17 07:22 Calcium 8.6 mg/dL (8.4-10.2) 02/14/17 04:08 Total Bilirubin 0.50 mg/dL (0.1-1.2) 02/08/17 13:37 Direct Bilirubin < 0.2 mg/dL (0-0.2) 02/05/17 00:31 Indirect Bilirubin 0.2 mg/dL 02/05/17 00:31 AST 30 units/L (5-40) 02/08/17 13:37 ALT 21 units/L (7-56) 02/08/17 13:37 Alkaline Phosphatase 80 units/L (35-129) 02/08/17 13:37 Total Protein 6.9 g/dL (6.3-8.2) 02/08/17 13:37 Albumin 3.1 g/dL (3.9-5) L 02/08/17 13:37 Albumin/Globulin Ratio 0.8 % 02/08/17 13:37 Lipase 10 units/L (13-60) L 02/05/17 00:31
[2017-02-14] MEDS ORDERED: MIRALAX 3350 PO SCH (13:00)
[2017-02-14] MEDS: D5NS 1,000 ML IV SCH (22:17)
[2017-02-14] MEDS: KEPPRA 500 MG in D5W 100 ML IV SCH ×3 (22:17→22:37)
[2017-02-14] MEDS: SENOKOT PO SCH (22:18)
[2017-02-15] MEDS: KEPPRA 500 MG in D5W 100 ML IV SCH ×2 (09:45→21:31)
[2017-02-15] MEDS: PEPCID IV SCH ×2 (09:45→21:32)
[2017-02-15] MEDS: LOVENOX SUB-Q SCH (09:46)
[2017-02-15] MEDS: D5NS 1,000 ML IV SCH (11:50)
--- NOTE | 2017-02-15 16:42 | Progress Note ---
Assessment and Plan /Small bowel obstruction - unable to maintain NGT to suction initially - s/p decompression gastrostomy by surgery 02/08 - small bowel series 02/09 showing incomplete SBO - repeat KUB 02/10 with significant improvement in the small bowel obstruction pattern, but on 02/12 showing oral contrast in colon/rectum and persistent preeminent small bowel loops - now improving, tolerating full liquid diet, had a bowel movement - adjust bowel regimen - monitor /Cerebral palsy - supportive care /Mental retardation Continue supportive care /Seizure disorder - ativan prn - seizure activity 2 on 02/12 - as unable to take by mouth antiepileptics, started on IV Keppra -We'll change Keppra to by mouth /DVT prophylaxis - lovenox /Dispo - if stable in am, may return to [place] if Placement available Brief history: 61-year-old AAM with a history of cerebral palsy, mental retardation, seizure disorder was sent to the emergency room for abnormal KUB which showed moderately distended bowel loops. Subjective Date of service: 02/15/17 Interval history: Patient seen and examined. Medical records and medication list reviewed. No acute event overnight noted by the RN. Patient denies any chest pain or difficulty breathing. Patient is both tube feeding and by mouth diet Objective - Exam Narrative Exam: GENERAL: well-developed and well-nourished AAM lying on bed appeared to be in no discomfort. HEENT: Normocephalic. Atraumatic. No conjunctival congestion or icterus. Patient has moist mucous membranes. NECK: Supple. Trachea midline. CHEST/LUNGS: Clear to auscultated bilaterally, breathing nonlabored. No wheezes crackles or rhonchi. HEART/CARDIOVASCULAR: Regular in rate and rhythm. S1 and S2 positive. ABDOMEN: Abdomen nontender. Patient has normal bowel sounds, PEG tube in place. SKIN: There is no rash. Warm and dry. NEURO: Follows simple command. EXTRIMITY: No edema, no cyanosis or clubbing. PSYCH: mentally retarded. - Constitutional Vitals: Vital Signs - 12hr 02/15/17 02/15/17 02/15/17 04:58 05:22 07:20 Temperature 98.1 F 98.5 F Pulse Rate 82 105 H 74 Respiratory 14 Rate Blood Pressure 143/93 Blood Pressure 143/93 110/66 [Left] O2 Sat by Pulse 99 95 Oximetry 02/15/17 02/15/17 02/15/17 10:00 14:50 14:51 Temperature 98.6 F Pulse Rate 98 H 96 H Respiratory 20 Rate Blood Pressure Blood Pressure 107/71 [Left] O2 Sat by Pulse 97 94 97 Oximetry - Labs CBC & Chem 7: 02/14/17 04:08 02/14/17 04:08
[2017-02-15] MEDS: SENOKOT PO SCH (21:31)
[2017-02-16 09:01] VITALS: BP 102/66
--- NOTE | 2017-02-16 10:36 | Discharge Summary ---
Providers - Providers Date of Admission: 02/05/17 05:03 Date of discharge: 02/16/17 Attending physician: STEVE LEWIS 02/08/17 17:14 Consult to Dietitian/Nutrition [CONS] Routine Physician Instructions: Assess nutrtn needs, initiate, modify, manage TF Reason For Exam: Reason for Consult: Write/Manage Tube Feeding Reason for Consult: Write/Manage Tube Feeding Primary care physician: ENVIRONMENTAL SERVICES SUPERVISOR Hospitalization Condition: Stable Hospital course: Brief history: 61-year-old AAM with a history of cerebral palsy, mental retardation, seizure disorder was sent to the emergency room for abnormal KUB which showed moderately distended bowel loops. Discharge diagnosis and management: /Small bowel obstruction - unable to maintain NGT to suction initially - s/p decompression gastrostomy by surgery 02/08 - small bowel series 02/09 showing incomplete SBO - repeat KUB 02/10 with significant improvement in the small bowel obstruction pattern, but on 02/12 showing oral contrast in colon/rectum and persistent preeminent small bowel loops - now improving, tolerating full liquid diet, had a bowel movement - adjust bowel regimen - monitor /Cerebral palsy - supportive care /Mental retardation Continue supportive care /Seizure disorder - ativan prn - seizure activity 2 on 02/12 - as unable to take by mouth antiepileptics, started on IV Keppra -We'll change Keppra to by mouth /DVT prophylaxis - lovenox /Dispo -return to [place] if Placement available Disposition: DC-30 STILL A PATIENT Time spent for discharge: 32 minutes Core Measure Documentation - Palliative Care Palliative Care/ Comfort Measures: Not Applicable - Core Measures Any of the following diagnoses?: none Exam - Physical Exam Narrative exam: GENERAL: well-developed and well-nourished AAM lying on bed appeared to be in no discomfort. HEENT: Normocephalic. Atraumatic. No conjunctival congestion or icterus. Patient has moist mucous membranes. NECK: Supple. Trachea midline. CHEST/LUNGS: Clear to auscultated bilaterally, breathing nonlabored. No wheezes crackles or rhonchi. HEART/CARDIOVASCULAR: Regular in rate and rhythm. S1 and S2 positive. ABDOMEN: Abdomen nontender. Patient has normal bowel sounds, PEG tube in place. SKIN: There is no rash. Warm and dry. NEURO: Follows simple command. EXTRIMITY: No edema, no cyanosis or clubbing. PSYCH: mentally retarded. - Constitutional Vitals: Temp Pulse Resp BP Pulse Ox 98.3 F 95 H 18 102/66 99 02/16/17 07:50 02/16/17 07:50 02/16/17 07:50 02/16/17 07:50 02/16/17 07:50 Plan Activity: up only with assistance Weight Bearing Status: Non-Weight Bearing Diet: per dietitian instruction Wound: keep clean and dry Follow up with: PRIMARY CARE, [Primary Care Provider] - 7 Days
[2017-02-16] MEDS: PEPCID IV SCH (11:58)
[2017-02-16] MEDS: KEPPRA 500 MG in D5W 100 ML IV SCH (11:58)
[2017-02-16 12:05] LABS: Iron 12 ug/dL (49-181); Total Iron Binding Capacity 242 mcg/dL (250-450)
[2017-02-16] MEDS: LOVENOX SUB-Q SCH (12:06)
== END 2017-02-16 13:00 | DRG 327 ==
LOC: ED 23:58 → 3B-SURG 02-05 05:03
PROVIDERS: ADMIT Internal Medicine; ATTEND Internal Medicine
PROC: 0DH60UZ Insertion of Feeding Device into Stomach, Open Approach (ICD-10-PCS; principal; 2017-02-08)
PROC: 0D9670Z Drainage of Stomach with Drainage Device, Via Natural or Artificial Opening (ICD-10-PCS; 2017-02-08)
DX: K56.600 Partial intestinal obstruction, unspecified as to cause (principal); E44.0 Moderate protein-calorie malnutrition; K56.7 Ileus, unspecified; G80.9 Cerebral palsy, unspecified; F79 Unspecified intellectual disabilities; G40.909 Epilepsy, unspecified, not intractable, without status epilepticus; Z68.25 Body mass index [BMI] 25.0-25.9, adult
CPT/HCPCS: 36415; 71010; 74000; 74177; 74250; 80048; 80053; 80074; 82962; 83550; 83690; 85007; 85025; 85027; 94760; J0690; J1170; J1650; J1953; J2060; J2405; J2704; J2710; J2765; J3010; J7030; J7042; Q9963; Q9967

== ENCOUNTER 2017-04-12 09:51 | Outpatient (CLI) | payer MEDICARE ==
--- NOTE | 2017-04-12 13:44 | Fluoroscopy Report ---
Upper GI series. History: Nausea and vomiting. Findings: There is a moderate sized hiatal hernia with severe gastroesophageal reflux during the entire study. Tertiary contractions of the esophagus are identified at fluoroscopy. The stomach and duodenum are unremarkable. Impression: 1. Hiatal hernia with severe gastroesophageal reflux. 2. Esophageal dysmotility.
== END 2017-04-12 09:52 | disposition home or self-care (01) ==
LOC: FLUORO 09:51
PROVIDERS: ATTEND Internal Medicine
DX: K44.9 Diaphragmatic hernia without obstruction or gangrene (principal); K21.9 Gastro-esophageal reflux disease without esophagitis; K76.89 Other specified diseases of liver; M62.81 Muscle weakness (generalized); M24.50 Contracture, unspecified joint; F06.8 Other specified mental disorders due to known physiological condition; K56.609 Unspecified intestinal obstruction, unspecified as to partial versus complete obstruction; R56.9 Unspecified convulsions; G80.9 Cerebral palsy, unspecified; F79 Unspecified intellectual disabilities; L21.9 Seborrheic dermatitis, unspecified; R62.7 Adult failure to thrive; R13.12 Dysphagia, oropharyngeal phase; E44.1 Mild protein-calorie malnutrition; K22.4 Dyskinesia of esophagus
CPT/HCPCS: 74241

== ENCOUNTER 2017-04-22 10:01 | Inpatient (IN) | payer MEDICARE ==
[2017-04-22 10:55] LABS: Mean Corpuscular HGB Conc 30 % (32-34); Red Blood Count 6.22 M/mm3 (3.65-5.03); White Blood Count 5.9 K/mm3 (4.5-11.0)
[2017-04-22 10:56] LABS: Hemoglobin 13.1 gm/dl (11.8-15.2); Mean Corpuscular Hemoglobin 21 pg (28-32); Mean Corpuscular Volume 69 fl (84-94); Platelet Count 152 K/mm3 (140-440); Red Cell Distribution Width 22.4 % (13.2-15.2)
[2017-04-22 11:02] LABS: Alanine Aminotransferase 8 units/L (7-56); Albumin 3.1 g/dL (3.9-5); Albumin/Globulin Ratio 0.9 %; Alkaline Phosphatase 81 units/L (35-129); Anion Gap 19 mmol/L; BUN/Creatinine Ratio 11; Blood Urea Nitrogen 8 mg/dL (9-20); Calcium 8.2 mg/dL (8.4-10.2); Carbon Dioxide 24 mmol/L (22-30); Chloride 101.5 mmol/L (98-107); Glucose 90 mg/dL (75-100); Lipase 8 units/L (13-60); Potassium 4.7 mmol/L (3.6-5.0); Sodium 140 mmol/L (137-145); Total Protein 6.6 g/dL (6.3-8.2)
[2017-04-22 11:39] LABS: Basophils % (Manual) 0 % (0.0-1.8); Blastocytes % (Manual) 0 %
[2017-04-22 11:40] LABS: Anisocytosis 2+; Hypochromasia 1+; Microcytosis 1+
[2017-04-22 11:41] LABS: Diff Status Complete; Poikilocytosis 1+
[2017-04-22 13:09] LABS: Bacteria,Urine 1+ /HPF (Negative); Bilirubin,Urine NEG (Negative); Blood,Urine NEG (Negative); Ketones,Urine NEG (Negative); Leukocyte Esterase,Urine NEG (Negative); Mucus,Urine FEW /HPF; Nitrite,Urine NEG (Negative); Protein,Urine <15 mg/dL mg/dL (Negative)
--- NOTE | 2017-04-22 14:24 | Cat Scan Report ---
CT ABDOMEN PELVIS WITH CONTRAST: HISTORY: Abdominal distention, small bowel obstruction. COMPARISON: 02/05/17. TECHNIQUE: Helical CT in 1.25mm intervals following IV contrast. Sagittal and coronal reconstructions. FINDINGS: Lung bases: The visualized lungs are well-aerated. Normal heart size. A moderate to large hiatal hernia is identified. Liver: normal. Biliary system: normal. Pancreas: normal. Spleen: normal. Kidneys/ureters/bladder: 3 cm right renal cyst and 2 cm left renal cyst are identified. No evidence for mass, nephrolithiasis or hydronephrosis. The ureters are unremarkable. The bladder is within normal limits. The prostate gland is enlarged and protrudes into the bladder. Consider correlation with PSA levels. Adrenal glands: normal. Aorta: normal. Intestines: The proximal colon and a few distal small bowel loops are mildly dilated. There is mild circumferential wall thickening in the proximal colon which may represent a mild colitis. Again, there is suggestion of a focal area of circumferential wall thickening near the splenic flexure. The colon is decompressed distal to this structure. I suspect there is likely a mildly obstructing mass in the distal transverse colon. Further evaluation with barium enema should be considered. There is no evidence for small bowel obstruction. The appendix is not confidently identified. 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 The bony structures are demineralized. No suspicious bony lesion. IMPRESSION: Probable colon mass near the splenic fracture which mildly obstructs. See above.
--- NOTE | 2017-04-22 15:07 | Emergency Department Report ---
ED Abdominal Pain HPI - General Chief Complaint: Abdominal Pain Stated Complaint: ABD DISTENTION Time Seen by Provider: 04/22/17 10:55 Source: EMS Mode of arrival: Stretcher Limitations: Other - History of Present Illness Initial Comments: 61 yo male with a past medical history cerebral palsy, PEG tube placement, right sided contractures, and chronic dysphasia presents to the hospital from skilled nursing with abdominal distention and gagging episodes as per skilled nursing staff. No reports of vomiting. Patient is alert, tracks with eyes, and speaks on occasion although difficult to understand. No acute distress noted. No further history of present illness at this time and patient is unable to provide any additional information Severity scale (0 -10): 0 - Related Data Previous Rx's Medication Instructions Recorded Last Taken Type Divalproex Dr [Depakote Dr] 250 mg PO Q8H 30 Days 02/16/17 Unknown Rx levETIRAcetam [Keppra TAB] 1,000 mg PO BID 30 Days 02/16/17 Unknown Rx Allergies Allergy/AdvReac Type Severity Reaction Status Date / Time No Known Allergies Allergy Unverified 02/05/17 00:08 ED Review of Systems ROS: Stated complaint: ABD DISTENTION Other details as noted in HPI Comment: Unobtainable due to pts medical conditions ED Past Medical Hx - Past Medical History Previous Medical History?: Yes Hx Seizures: Yes Additional medical history: Cerebral Palsy. Generalzed weakness. Dysphagia. intestinal obstruction. Adult Failure to thrive. Liver Disease - Surgical History Past Surgical History?: Yes Additional Surgical History: PEG tube - Social History Smoking Status: Unknown if ever smoked - Medications Home Medications: Home Medications Medication Instructions Recorded Confirmed Last Taken Type Divalproex Dr [Depakote Dr] 250 mg PO Q8H 30 Days 02/16/17 02/12/17 Unknown Rx levETIRAcetam [Keppra TAB] 1,000 mg PO BID 30 Days 02/16/17 02/12/17 Unknown Rx ED Physical Exam - General Limitations: Other - Other Other exam information: General: patient is alert in no acute distress Head exam: Atraumatic, normocephalic Eyes exam: Normal appearance ENT: Moist mucous membrane, normal oropharynx Neck exam: Normal inspection, full range of motion, no meningismus nontender Respiratory exam: Clear to auscultation bilateral, no wheezes, rales, crackles Cardiovascular: Normal rate and rhythm Abdomen: Soft, nondistended, positive PEG tube, distended firm abdomen. No grimace on palpation Extremity: Full range of motion normal inspection no deformity Back: Normal Inspection, full range of motion, no tenderness Neurologic: Alert, able to speak some words but not fluently, right-sided paralysis with contraction. Movement left arm and leg Psychiatric: normal affect, normal mood Skin: Warm, dry, intact ED Course Vital Signs 04/22/17 04/22/17 04/22/17 10:08 10:11 10:30 Temperature 98.2 F 98.3 F Pulse Rate 92 H 91 H Respiratory 20 18 Rate Blood Pressure 129/78 129/78 O2 Sat by Pulse 95 94 Oximetry 04/22/17 04/22/17 04/22/17 10:35 11:00 11:30 Temperature Pulse Rate 82 77 87 Respiratory 11 L 16 19 Rate Blood Pressure 115/72 114/69 O2 Sat by Pulse 98 97 Oximetry 04/22/17 04/22/17 04/22/17 12:00 12:30 13:00 Temperature Pulse Rate 81 86 98 H Respiratory 22 17 17 Rate Blood Pressure 115/67 115/67 115/69 O2 Sat by Pulse 92 97 95 Oximetry 04/22/17 04/22/17 04/22/17 13:30 14:04 14:30 Temperature Pulse Rate 90 94 H 83 Respiratory 14 13 Rate Blood Pressure 115/69 95/75 102/78 O2 Sat by Pulse 97 98 Oximetry 04/22/17 15:00 Temperature Pulse Rate 90 Respiratory 18 Rate Blood Pressure 101/74 O2 Sat by Pulse 93 Oximetry - Consultations Consultation #1: 04/22/17 15:09 case d/w cannon pinion adjuster surgeon Dr rhodes, he is at bedside to evaluate pt - EJ/Peripheral Line Neck R Time Out Performed: Yes Indications: nurses unable to establis Skin Cleansed in Sterile Fashion: Yes Size: 20 Dressing Placed: Tegaderm Patient Tolerated Procedure: well ED Medical Decision Making - Lab Data Result diagrams: 04/22/17 10:23 04/22/17 10:23 Lab Results 04/22/17 04/22/17 04/22/17 Range/Units 10:23 10:23 12:46 WBC 5.9 (4.5-11.0) K/mm3 RBC 6.22 H (3.65-5.03) M/mm3 Hgb 13.1 (11.8-15.2) gm/dl Hct 43.0 (35.5-45.6) % MCV 69 L (84-94) fl MCH 21 L (28-32) pg MCHC 30 L (32-34) % RDW 22.4 H (13.2-15.2) % Plt Count 152 (140-440) K/mm3 Lymph % (Auto) Asphalt Layer [place] % (Auto) Asphalt Layer Eos % (Auto) Asphalt Layer Baso % (Auto) Asphalt Layer Lymph # Asphalt Layer [place] # Asphalt Layer Eos # Asphalt Layer Baso # Asphalt Layer Add Manual Diff Complete Total Counted 100 Seg Neutrophils % Asphalt Layer Seg Neuts % (Manual) 52.0 (40.0-70.0) % Band Neutrophils % 2.0 % Lymphocytes % (Manual) 28.0 (13.4-35.0) % Reactive Lymphs % (Man) 0 % Monocytes % (Manual) 17.0 H (0.0-7.3) % Eosinophils % (Manual) 1.0 (0.0-4.3) % Basophils % (Manual) 0 (0.0-1.8) % Metamyelocytes % 0 % Myelocytes % 0 % Promyelocytes % 0 % Blast Cells % 0 % Nucleated RBC % Not Reportable Seg Neutrophils # [place]phalt Layer Seg Neutrophils # Man 3.1 (1.8-7.7) K/mm3 Band Neutrophils # 0.1 K/mm3 Lymphocytes # (Manual) 1.7 (1.2-5.4) K/mm3 Abs React Lymphs (Man) 0.0 K/mm3 Monocytes # (Manual) 1.0 H (0.0-0.8) K/mm3 Eosinophils # (Manual) 0.1 (0.0-0.4) K/mm3 Basophils # (Manual) 0.0 (0.0-0.1) K/mm3 Metamyelocytes # 0.0 K/mm3 Myelocytes # 0.0 K/mm3 Promyelocytes # 0.0 K/mm3 Blast Cells # 0.0 K/mm3 WBC Morphology Not Reportable Hypersegmented Neuts Not Reportable Hyposegmented Neuts Not Reportable Hypogranular Neuts Not Reportable Smudge Cells Not Reportable Toxic Granulation Not Reportable Toxic Vacuolation Not Reportable Dohle Bodies Not Reportable Pelger-Huet Anomaly Not Reportable Ananda Rods Not Reportable Platelet Estimate Not Reportable Clumped Platelets Not Reportable Plt Clumps, EDTA Not Reportable Large Platelets Not Reportable Giant Platelets Not Reportable Platelet Satelliting Not Reportable Plt Morphology Comment Not Reportable RBC Morphology Not Reportable Dimorphic RBCs Not Reportable Polychromasia Not Reportable Hypochromasia 1+ Poikilocytosis 1+ Anisocytosis 2+ Microcytosis 1+ Macrocytosis Not Reportable Spherocytes Not Reportable Pappenheimer Bodies Not Reportable Sickle Cells Not Reportable Target Cells Not Reportable Tear Drop Cells Not Reportable Ovalocytes Not Reportable Helmet Cells Not Reportable [place] Bodies Not Reportable [place] Rings Not Reportable [place] Cells Not Reportable Bite Cells Not Reportable Crenated Cell Not Reportable Elliptocytes Not Reportable Acanthocytes (Spur) Not Reportable Rouleaux Not Reportable Hemoglobin C Crystals Not Reportable Schistocytes Not Reportable Malaria parasites Not Reportable Talib Bodies Not Reportable Hem Pathologist Commnt No Sodium 140 (137-145) mmol/L Potassium 4.7 (3.6-5.0) mmol/L Chloride 101.5 (98-107) mmol/L Carbon Dioxide 24 (22-30) mmol/L Anion Gap 19 mmol/L BUN 8 L (9-20) mg/dL Creatinine 0.7 L (0.8-1.5) mg/dL Estimated GFR > 60 ml/min BUN/Creatinine Ratio 11 % Glucose 90 (75-100) mg/dL Calcium 8.2 L (8.4-10.2) mg/dL Total Bilirubin 0.30 (0.1-1.2) mg/dL AST 19 (5-40) units/L ALT 8 (7-56) units/L Alkaline Phosphatase 81 (35-129) units/L Total Protein 6.6 (6.3-8.2) g/dL Albumin 3.1 L (3.9-5) g/dL Albumin/Globulin Ratio 0.9 % Lipase 8 L (13-60) units/L Urine Color Yellow (Yellow) Urine Turbidity Clear (Clear) Urine pH 6.0 (5.0-7.0) Ur Specific [place] 1.015 (1.003-1.030) Urine Protein <15 mg/dl (Negative) mg/dL Urine Glucose (UA) Neg (Negative) mg/dL Urine Ketones Neg (Negative) mg/dL Urine Blood Neg (Negative) Urine Nitrite Neg (Negative) Urine Bilirubin Neg (Negative) Urine Urobilinogen 4.0 (<2.0) mg/dL Ur Leukocyte Esterase Neg (Negative) Urine WBC (Auto) 2.0 (0.0-6.0) /HPF Urine RBC (Auto) 1.0 (0.0-6.0) /HPF U Epithel Cells (Auto) 2.0 (0-13.0) /HPF Urine Bacteria (Auto) 1+ (Negative) /HPF Urine Mucus Few /HPF - Radiology Data Radiology results: report reviewed CT abdomen and pelvis with IV contrast: Probable colonic mass near the splenic fracture was mildly obstructs. 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 No suspicious bony lesion - Medical Decision Making Significant to the hospital given the CT findings of a possible colonic mass causing a partial obstruction. Surgery has been consulted and has evaluated patient in the ED. Hospitalist informed Note patient's CT includes oral contrast. Patient did not receive oral contrast in the ED today only IV. Per medical record review patient had a upper GI study done on 04/13/17 and shows had a hernia with severe gastroesophageal reflux and esophageal dysmotility. - Differential Diagnosis obstruction, constipation, ileus, perforation Critical Care Time: No Critical care attestation.: If time is entered above; I have spent that time in minutes in the direct care of this critically ill patient, excluding procedure time. ED Disposition Clinical Impression: Colonic mass, Partial intestinal obstruction Disposition: 09 OP ADMIT IP TO THIS HOSP Is pt being admited?: Yes Condition: Stable Time of Disposition: 15:11 (Dr. Harris/hosp)
--- NOTE | 2017-04-22 15:29 | History and Physical Report ---
History of Present Illness Chief complaint: Abdominal Distention History of present illness: 61 yo male Long-Term Resident with Cerebral Palsy, Chronic Dysphagia S/P PEG Tube Placement, Intestinal Obstruction, Debility, Contracture presents to ED for evaluation. Pt unable to provide history, but history taken from NH staff, and ED staff. As per SNF staff, the patient was found to have worsening abdominal distention over the past 3 days as well as gagging episodes today. EMS notified and patient transported to [facility] for evaluation and further care. Pt seen and evaluated in ED and found to have a colon mass, and concomitant partial bowel obstruction. Surgery team consulted in ED. No reports of fever, chills, CP, Palpitations, skin rash, loss of consciousness, BRBPR, Productive cough, or recent ill contacts. Past History Past Medical History: other (Cerebral Palsy, contracture, intestinal obstruction , debility) Past Surgical History: Other (PEG tube) Social history: single. denies: smoking, alcohol abuse, prescription drug abuse Family history: hypertension Medications and Allergies Allergies Allergy/AdvReac Type Severity Reaction Status Date / Time No Known Allergies Allergy Unverified 02/05/17 00:08 Home Medications Medication Instructions Recorded Confirmed Last Taken Type Divalproex Dr [Depakote Dr] 250 mg PO Q8H 30 Days 02/16/17 04/22/17 Unknown Rx Acetaminophen [Tylenol] 650 mg PO Q8HR PRN 04/22/17 04/22/17 Unknown History Calcium Carbonate/Vitamin D3 1 tab PO QPM 04/22/17 04/22/17 Unknown History [Calcium 500-Vit D3 200 Tablet] Metoclopramide [Reglan] 10 mg FEEDTUBE Q6H PRN 04/22/17 04/22/17 Unknown History Neomycin/Bacitracin/Polymyxinb 1 applicator TP QPM 04/22/17 04/22/17 Unknown History [Triple Antibiotic Ointment] Ondansetron [Zofran INJ] 4 mg IM Q6HR PRN 04/22/17 04/22/17 Unknown History Pantoprazole [Protonix] 40 mg PO QDAY 04/22/17 04/22/17 Unknown History Phenytoin Sodium Extended 100 mg PO BID 04/22/17 04/22/17 Unknown History [Dilantin] levETIRAcetam [Keppra] 1,500 mg PO BID 04/22/17 04/22/17 Unknown History Review of Systems ROS unobtainable: due to mental status Exam - Constitutional Vitals: Temp Pulse Resp BP Pulse Ox 98.3 F 90 18 101/74 93 04/22/17 10:30 04/22/17 15:00 04/22/17 15:00 04/22/17 15:00 04/22/17 15:00 General appearance: Present: mild distress - EENT Eyes: Present: PERRL ENT: hearing intact, clear oral mucosa - Neck Neck: Present: supple, normal ROM - Respiratory Respiratory: bilateral: diminished - Cardiovascular Heart Sounds: Present: S1 & S2. Absent: rub, click - Extremities Extremities: pulses symmetrical, No edema Peripheral Pulses: within normal limits - Abdominal General gastrointestinal: Present: soft, distended. Absent: hepatomegaly, splenomegaly, mass Male genitourinary: Present: normal - Integumentary Integumentary: Present: clear, warm, dry - Musculoskeletal Musculoskeletal: generalized weakness, other (contracture) - Psychiatric Psychiatric: no intact judgment & insight, no memory intact - Neurologic Neurologic: no gait normal Results - Labs CBC & Chem 7: 04/22/17 10:23 04/22/17 10:23 Labs: Abnormal lab results 04/22/17 04/22/17 Range/Units 10:23 10:23 RBC 6.22 H (3.65-5.03) M/mm3 MCV 69 L (84-94) fl MCH 21 L (28-32) pg MCHC 30 L (32-34) % RDW 22.4 H (13.2-15.2) % Monocytes % (Manual) 17.0 H (0.0-7.3) % Monocytes # (Manual) 1.0 H (0.0-0.8) K/mm3 BUN 8 L (9-20) mg/dL Creatinine 0.7 L (0.8-1.5) mg/dL Calcium 8.2 L (8.4-10.2) mg/dL Albumin 3.1 L (3.9-5) g/dL Lipase 8 L (13-60) units/L Assessment and Plan - Patient Problems (1) Partial bowel obstruction Current Visit: Yes Status: Acute Plan to address problem: bowel rest, IVF resuscitation, serial abdominal exam, surgery team consulted, supportive care. (2) Mass of colon Current Visit: Yes Status: Acute Plan to address problem: CT Abdomen/Pelvis, Surgery consulted to discuss risk/benefit of further testing and intervention. (3) Cerebral palsy Current Visit: Yes Status: Chronic Plan to address problem: Neuro checks, supportive care. (4) DVT prophylaxis Current Visit: Yes Status: Acute
[2017-04-22] MEDS ORDERED: DULCOLAX PR PRN (15:32)
[2017-04-22] MEDS ORDERED: MILK OF MAGNESIA PO PRN (15:32)
[2017-04-22] MEDS ORDERED: ZOFRAN IV PRN (15:32)
[2017-04-22] MEDS ORDERED: TYLENOL PO PRN (15:32)
[2017-04-22] MEDS ORDERED: PROVENTIL IH PRN (15:32)
[2017-04-22] MEDS ORDERED: NON-FORMULARY (Levetiracetam [Keppra Tab] 1,000 MG) PO SCH (22:00)
[2017-04-22] MEDS ORDERED: KEPPRA PO SCH (22:00)
[2017-04-23] MEDS: NACL 0.45% 1000 ML 1,000 ML IV SCH (04:54)
[2017-04-23] MEDS: DEPACON IV SCH ×3 (05:29→21:20)
[2017-04-23] MEDS: NACL 0.9% IV SCH ×3 (05:29→21:20)
[2017-04-23] MEDS: KEPPRA 1,000 MG/NS 0.75% 100ML 1,000 MG/100 ML BAG IV SCH ×2 (06:02→18:05)
--- NOTE | 2017-04-23 10:21 | XRay Report ---
KUB: 04/23/17 08:16:00 CLINICAL: Abdominal distention. COMPARISON: CT abdomen and pelvis 04/22/17 and 02/12/17 FINDINGS: Distended loops of distal small bowel are filled with retained CT contrast. There is some contrast in right colon which has an irregular wall. This finding was also identified on CT. The more proximal small bowel is less distended. The transverse colon is moderately distended but the left colon and sigmoid colon are nondistended. A nasogastric tube tip is in the stomach. No mass or suspicious calcifications. No pneumoperitoneum. IMPRESSION: Colon obstruction. Based on the 02/12/17 CT, the obstruction is likely in the distal transverse colon and this x-ray supports that diagnosis.
--- NOTE | 2017-04-23 11:07 | Consultation ---
HISTORY OF PRESENT ILLNESS: I was called by Dr. Cristy Carmen to see this patient, he is a residential resident. He is a 61-year-old black male who had cerebral palsy. He has dysphagia and he had a PEG tube apparently in the past, along with that he has distended abdomen, the etiology of which is unknown at the present time. This was seen apparently on the CAT scan that showed evidence of ?mass in the ascending colon and another one in the splenic flexure area. The patient had no vomiting. Had a gastrostomy tube. He is alert, he is unable to talk, although he does understand. Examination showed a well preserved black male who is in no distress. He is lying down on his back and there is contracture of his right lower extremity. At one point, he had a fairly good sized hiatal hernia with nausea and vomiting for which he underwent a feeding gastrostomy. ALLERGIES: Allergic reactions were denied. MEDICATIONS: He is on multiple medications, these included milk of magnesia, Zofran, Dulcolax, Proventil, Tylenol, and Depakote, as well as Keppra. PHYSICAL EXAMINATION: GENERAL: Showed an elderly man who is barely responsive, but he can understand with his eyes upon asked some questions. HEAD AND NECK: Nonrevealing. Neck is supple. CHEST: Essentially clear to me. HEART: Sound normal. ABDOMEN: Protuberant with a gastrostomy tube in the left mid upper abdomen. The patient had hypoactive bowel sounds. Extremities: Showed contracture of his right lower extremity. There is no edema. IMPRESSION: 1. Cerebral palsy. 2. Hiatal hernia. 3. Dysphagia on a gastrostomy tube feeding. 4. A mass in the splenic flexure as well and ?in the ascending colon. I believe this need to be addressed further. He needs at least a colonoscopy, going to leave that to Dr. Harris to make a decision, going to check his ____ and his CBC was essentially negative. The hematocrit is 43. The platelets are 152. We are going to leave that to Dr. Harris to have Gastroenterology to see him under the impression that Dr. Cameron Jose will be seeing him. JOB# [id number] RBK/NTS
--- NOTE | 2017-04-23 12:28 | Progress Note ---
Subjective Narrative: for lower GI evaluation ,two lluvia of concern in the colon ascending and splenic flexure , will await results , Objective Vital Signs - 12hr 04/23/17 08:17 Temperature 97.9 F Pulse Rate 82 Respiratory 16 Rate Blood Pressure 120/78 O2 Sat by Pulse 91 Oximetry - Labs 04/22/17 10:23 04/22/17 10:23
--- NOTE | 2017-04-23 14:13 | Progress Note ---
Assessment and Plan Assessment and plan: Patient is 61 yo man from [place] with h/o seizre disorder, severe debilitating Cerebral palsy resulting in functional quadriplegia, leg contractures and peg tube placement who presented with abd pains. CT abd/pelvis with contrast reported as "probable colon mass near the splenic fracture which mildly obstructs..." -Small bowel obstruction: Consult to Gen. surgery -Colon mass with obstruction: nothing by mouth: Consult GI -Seizure disorder: Change Keppra to IV -Oropharyngeal dysphagia with PEG tube management: Hold feedings for now -Function quadriplegia: PT/OT -DVT prophylaxis: Add subcutaneous heparin History Interval history: Patient was seen and examined. Follow-up on current diagnosis. Overnight uneventful. Patient mumbles and words appear incomprehensible. Imaging, nursing note, chart, labs and old chart reviewed. Hospitalist Physical - Physical exam Narrative exam: GEN: Currently debilitated and frail NAD, AWAKE, ALERT HEENT: EOMI, PERRL, OP dry NECK: supple, no adenopathy, no thyromegaly, no JVD CVS/HEART: RRR, NORMAL S1S2, NO JVD, pulses present bilaterally CHEST/LUNGS: CTA B, Symmetrical chest expansion, good air entry bilaterally GI/Abdomen: soft, distended good bowel sounds, no guarding or rebound /Bladder: no suprapubic tenderness, no CVA or paraspinal tenderness EXT/Skin: Atrophic female MSK: Contractures Neuro: CN 2-12 grossly intact, doesn't follow commands Psych: Mumbles - Constitutional Vitals: Temp Pulse Resp BP Pulse Ox 97.9 F 82 16 120/78 91 04/23/17 08:17 04/23/17 08:17 04/23/17 08:17 04/23/17 08:17 04/23/17 08:17 Results - Labs CBC & Chem 7: 04/22/17 10:23 04/22/17 10:23 Labs: Laboratory Last Values WBC 5.9 K/mm3 (4.5-11.0) 04/22/17 10:23 RBC 6.22 M/mm3 (3.65-5.03) H 04/22/17 10:23 Hgb 13.1 gm/dl (11.8-15.2) 04/22/17 10:23 Hct 43.0 % (35.5-45.6) 04/22/17 10:23 MCV 69 fl (84-94) L 04/22/17 10:23 MCH 21 pg (28-32) L 04/22/17 10:23 MCHC 30 % (32-34) L 04/22/17 10:23 RDW 22.4 % (13.2-15.2) H 04/22/17 10:23 Plt Count 152 K/mm3 (140-440) 04/22/17 10:23 Lymph % (Auto) Manager Call 04/22/17 10:23 [place] % (Auto) Manager Call 04/22/17 10:23 Eos % (Auto) Manager Call 04/22/17 10:23 Baso % (Auto) Manager Call 04/22/17 10:23 Lymph # Manager Call 04/22/17 10:23 [place] # Manager Call 04/22/17 10:23 Eos # Manager Call 04/22/17 10:23 Baso # Manager Call 04/22/17 10:23 Add Manual Diff Complete 04/22/17 10:23 Total Counted 100 04/22/17 10:23 Seg Neutrophils % Manager Call 04/22/17 10:23 Seg Neuts % (Manual) 52.0 % (40.0-70.0) 04/22/17 10:23 Band Neutrophils % 2.0 % 04/22/17 10:23 Lymphocytes % (Manual) 28.0 % (13.4-35.0) 04/22/17 10:23 Reactive Lymphs % (Man) 0 % 04/22/17 10:23 Monocytes % (Manual) 17.0 % (0.0-7.3) H 04/22/17 10:23 Eosinophils % (Manual) 1.0 % (0.0-4.3) 04/22/17 10:23 Basophils % (Manual) 0 % (0.0-1.8) 04/22/17 10:23 Metamyelocytes % 0 % 04/22/17 10:23 Myelocytes % 0 % 04/22/17 10:23 Promyelocytes % 0 % 04/22/17 10:23 Blast Cells % 0 % 04/22/17 10:23 Nucleated RBC % Not Reportable 04/22/17 10:23 Seg Neutrophils # Manager Call 04/22/17 10:23 Seg Neutrophils # Man 3.1 K/mm3 (1.8-7.7) 04/22/17 10:23 Band Neutrophils # 0.1 K/mm3 04/22/17 10:23 Lymphocytes # (Manual) 1.7 K/mm3 (1.2-5.4) 04/22/17 10:23 Abs React Lymphs (Man) 0.0 K/mm3 04/22/17 10:23 Monocytes # (Manual) 1.0 K/mm3 (0.0-0.8) H 04/22/17 10:23 Eosinophils # (Manual) 0.1 K/mm3 (0.0-0.4) 04/22/17 10:23 Basophils # (Manual) 0.0 K/mm3 (0.0-0.1) 04/22/17 10:23 Metamyelocytes # 0.0 K/mm3 04/22/17 10:23 Myelocytes # 0.0 K/mm3 04/22/17 10:23 Promyelocytes # 0.0 K/mm3 04/22/17 10:23 Blast Cells # 0.0 K/mm3 04/22/17 10:23 WBC Morphology Not Reportable 04/22/17 10:23 Hypersegmented Neuts Not Reportable 04/22/17 10:23 Hyposegmented Neuts Not Reportable 04/22/17 10:23 Hypogranular Neuts Not Reportable 04/22/17 10:23 Smudge Cells Not Reportable 04/22/17 10:23 Toxic Granulation Not Reportable 04/22/17 10:23 Toxic Vacuolation Not Reportable 04/22/17 10:23 Dohle Bodies Not Reportable 04/22/17 10:23 Pelger-Huet Anomaly Not Reportable 04/22/17 10:23 Ananda Rods Not Reportable 04/22/17 10:23 Platelet Estimate Not Reportable 04/22/17 10:23 Clumped Platelets Not Reportable 04/22/17 10:23 Plt Clumps, EDTA Not Reportable 04/22/17 10:23 Large Platelets Not Reportable 04/22/17 10:23 Giant Platelets Not Reportable 04/22/17 10:23 Platelet Satelliting Not Reportable 04/22/17 10:23 Plt Morphology Comment Not Reportable 04/22/17 10:23 RBC Morphology Not Reportable 04/22/17 10:23 Dimorphic RBCs Not Reportable 04/22/17 10:23 Polychromasia Not Reportable 04/22/17 10:23 Hypochromasia 1+ 04/22/17 10:23 Poikilocytosis 1+ 04/22/17 10:23 Anisocytosis 2+ 04/22/17 10:23 Microcytosis 1+ 04/22/17 10:23 Macrocytosis Not Reportable 04/22/17 10:23 Spherocytes Not Reportable 04/22/17 10:23 Pappenheimer Bodies Not Reportable 04/22/17 10:23 Sickle Cells Not Reportable 04/22/17 10:23 Target Cells Not Reportable 04/22/17 10:23 Tear Drop Cells Not Reportable 04/22/17 10:23 Ovalocytes Not Reportable 04/22/17 10:23 Helmet Cells Not Reportable 04/22/17 10:23 [place] Bodies Not Reportable 04/22/17 10:23 [place] Rings Not Reportable 04/22/17 10:23 [place] Cells Not Reportable 04/22/17 10:23 Bite Cells Not Reportable 04/22/17 10:23 Crenated Cell Not Reportable 04/22/17 10:23 Elliptocytes Not Reportable 04/22/17 10:23 Acanthocytes (Spur) Not Reportable 04/22/17 10:23 Rouleaux Not Reportable 04/22/17 10:23 Hemoglobin C Crystals Not Reportable 04/22/17 10:23 Schistocytes Not Reportable 04/22/17 10:23 Malaria parasites Not Reportable 04/22/17 10:23 Talib Bodies Not Reportable 04/22/17 10:23 Hem Pathologist Commnt No 04/22/17 10:23 Sodium 140 mmol/L (137-145) 04/22/17 10:23 Potassium 4.7 mmol/L (3.6-5.0) 04/22/17 10:23 Chloride 101.5 mmol/L (98-107) 04/22/17 10:23 Carbon Dioxide 24 mmol/L (22-30) 04/22/17 10:23 Anion Gap 19 mmol/L 04/22/17 10:23 BUN 8 mg/dL (9-20) L 04/22/17 10:23 Creatinine 0.7 mg/dL (0.8-1.5) L 04/22/17 10:23 Estimated GFR > 60 ml/min 04/22/17 10:23 BUN/Creatinine Ratio 11 % 04/22/17 10:23 Glucose 90 mg/dL (75-100) 04/22/17 10:23 Calcium 8.2 mg/dL (8.4-10.2) L 04/22/17 10:23 Total Bilirubin 0.30 mg/dL (0.1-1.2) 04/22/17 10:23 AST 19 units/L (5-40) 04/22/17 10:23 ALT 8 units/L (7-56) 04/22/17 10:23 Alkaline Phosphatase 81 units/L (35-129) 04/22/17 10:23 Total Protein 6.6 g/dL (6.3-8.2) 04/22/17 10:23 Albumin 3.1 g/dL (3.9-5) L 04/22/17 10:23 Albumin/Globulin Ratio 0.9 % 04/22/17 10:23 Lipase 8 units/L (13-60) L 04/22/17 10:23 Urine Color Yellow (Yellow) 04/22/17 12:46 Urine Turbidity Clear (Clear) 04/22/17 12:46 Urine pH 6.0 (5.0-7.0) 04/22/17 12:46 Ur Specific [place] 1.015 (1.003-1.030) 04/22/17 12:46 Urine Protein <15 mg/dl mg/dL (Negative) 04/22/17 12:46 Urine Glucose (UA) Neg mg/dL (Negative) 04/22/17 12:46 Urine Ketones Neg mg/dL (Negative) 04/22/17 12:46 Urine Blood Neg (Negative) 04/22/17 12:46 Urine Nitrite Neg (Negative) 04/22/17 12:46 Urine Bilirubin Neg (Negative) 04/22/17 12:46 Urine Urobilinogen 4.0 mg/dL (<2.0) 04/22/17 12:46 Ur Leukocyte Esterase Neg (Negative) 04/22/17 12:46 Urine WBC (Auto) 2.0 /HPF (0.0-6.0) 04/22/17 12:46 Urine RBC (Auto) 1.0 /HPF (0.0-6.0) 04/22/17 12:46 U Epithel Cells (Auto) 2.0 /HPF (0-13.0) 04/22/17 12:46 Urine Bacteria (Auto) 1+ /HPF (Negative) 04/22/17 12:46 Urine Mucus Few /HPF 04/22/17 12:46
[2017-04-24] MEDS: KEPPRA 1,000 MG/NS 0.75% 100ML 1,000 MG/100 ML BAG IV SCH ×2 (04:40→17:31)
[2017-04-24] MEDS ORDERED: Fluarix Quad 2017-2018(36 MOS+ IM ONE (12:00)
[2017-04-24] MEDS ORDERED: PNEUMOVAX 23 IM ONE (12:24)
--- NOTE | 2017-04-24 13:26 | Progress Note ---
Assessment and Plan Assessment and plan: Patient is 61 yo man from [facility] with h/o seizre disorder, severe debilitating Cerebral palsy resulting in functional quadriplegia, leg contractures and peg tube placement who presented with abd pains. CT abd/pelvis with contrast reported as "probable colon mass near the splenic fracture which mildly obstructs..." -Small bowel obstruction: Consult to Gen. surgery -Colon mass with obstruction suspect Colon Cancer: nothing by mouth: Consult GI -Seizure disorder: Change Keppra to IV -Oropharyngeal dysphagia with PEG tube management: Hold feedings for now -Function quadriplegia: PT/OT -DVT prophylaxis: Add subcutaneous heparin Abdomen x-ray 04/23/2017 reported as colon obstruction.. Obstruction is likely in the distal transverse colon Called and d/w caregiver Karen Rondon in [phone] History Interval history: Patient was seen and examined. Follow-up on current diagnosis. Overnight uneventful. Patient mumbles and words appear incomprehensible. Imaging, nursing note, chart, labs and old chart reviewed. Hospitalist Physical - Physical exam Narrative exam: GEN: Currently debilitated and frail NAD, AWAKE, ALERT HEENT: EOMI, PERRL, OP dry NECK: supple, no adenopathy, no thyromegaly, no JVD CVS/HEART: RRR, NORMAL S1S2, NO JVD, pulses present bilaterally CHEST/LUNGS: CTA B, Symmetrical chest expansion, good air entry bilaterally GI/Abdomen: soft, distended good bowel sounds, no guarding or rebound /Bladder: no suprapubic tenderness, no CVA or paraspinal tenderness EXT/Skin: Atrophic female MSK: Contractures Neuro: CN 2-12 grossly intact, doesn't follow commands Psych: Mumbles - Constitutional Vitals: Temp Pulse Resp BP Pulse Ox 98.5 F 98 H 18 119/80 94 04/24/17 11:22 04/24/17 11:22 04/24/17 11:22 04/24/17 11:22 04/24/17 11:22 Results - Labs CBC & Chem 7: 04/22/17 10:23 04/22/17 10:23 Labs: Laboratory Last Values WBC 5.9 K/mm3 (4.5-11.0) 04/22/17 10:23 RBC 6.22 M/mm3 (3.65-5.03) H 04/22/17 10:23 Hgb 13.1 gm/dl (11.8-15.2) 04/22/17 10:23 Hct 43.0 % (35.5-45.6) 04/22/17 10:23 MCV 69 fl (84-94) L 04/22/17 10:23 MCH 21 pg (28-32) L 04/22/17 10:23 MCHC 30 % (32-34) L 04/22/17 10:23 RDW 22.4 % (13.2-15.2) H 04/22/17 10:23 Plt Count 152 K/mm3 (140-440) 04/22/17 10:23 Lymph % (Auto) Neurological Surgery Teacher 04/22/17 10:23 [place] % (Auto) Neurological Surgery Teacher 04/22/17 10:23 Eos % (Auto) Neurological Surgery Teacher 04/22/17 10:23 Baso % (Auto) Neurological Surgery Teacher 04/22/17 10:23 Lymph # Neurological Surgery Teacher 04/22/17 10:23 [place] # Neurological Surgery Teacher 04/22/17 10:23 Eos # Neurological Surgery Teacher 04/22/17 10:23 Baso # Neurological Surgery Teacher 04/22/17 10:23 Add Manual Diff Complete 04/22/17 10:23 Total Counted 100 04/22/17 10:23 Seg Neutrophils % Neurological Surgery Teacher 04/22/17 10:23 Seg Neuts % (Manual) 52.0 % (40.0-70.0) 04/22/17 10:23 Band Neutrophils % 2.0 % 04/22/17 10:23 Lymphocytes % (Manual) 28.0 % (13.4-35.0) 04/22/17 10:23 Reactive Lymphs % (Man) 0 % 04/22/17 10:23 Monocytes % (Manual) 17.0 % (0.0-7.3) H 04/22/17 10:23 Eosinophils % (Manual) 1.0 % (0.0-4.3) 04/22/17 10:23 Basophils % (Manual) 0 % (0.0-1.8) 04/22/17 10:23 Metamyelocytes % 0 % 04/22/17 10:23 Myelocytes % 0 % 04/22/17 10:23 Promyelocytes % 0 % 04/22/17 10:23 Blast Cells % 0 % 04/22/17 10:23 Nucleated RBC % Not Reportable 04/22/17 10:23 Seg Neutrophils # Neurological Surgery Teacher 04/22/17 10:23 Seg Neutrophils # Man 3.1 K/mm3 (1.8-7.7) 04/22/17 10:23 Band Neutrophils # 0.1 K/mm3 04/22/17 10:23 Lymphocytes # (Manual) 1.7 K/mm3 (1.2-5.4) 04/22/17 10:23 Abs React Lymphs (Man) 0.0 K/mm3 04/22/17 10:23 Monocytes # (Manual) 1.0 K/mm3 (0.0-0.8) H 04/22/17 10:23 Eosinophils # (Manual) 0.1 K/mm3 (0.0-0.4) 04/22/17 10:23 Basophils # (Manual) 0.0 K/mm3 (0.0-0.1) 04/22/17 10:23 Metamyelocytes # 0.0 K/mm3 04/22/17 10:23 Myelocytes # 0.0 K/mm3 04/22/17 10:23 Promyelocytes # 0.0 K/mm3 04/22/17 10:23 Blast Cells # 0.0 K/mm3 04/22/17 10:23 WBC Morphology Not Reportable 04/22/17 10:23 Hypersegmented Neuts Not Reportable 04/22/17 10:23 Hyposegmented Neuts Not Reportable 04/22/17 10:23 Hypogranular Neuts Not Reportable 04/22/17 10:23 Smudge Cells Not Reportable 04/22/17 10:23 Toxic Granulation Not Reportable 04/22/17 10:23 Toxic Vacuolation Not Reportable 04/22/17 10:23 Dohle Bodies Not Reportable 04/22/17 10:23 Pelger-Huet Anomaly Not Reportable 04/22/17 10:23 Ananda Rods Not Reportable 04/22/17 10:23 Platelet Estimate Not Reportable 04/22/17 10:23 Clumped Platelets Not Reportable 04/22/17 10:23 Plt Clumps, EDTA Not Reportable 04/22/17 10:23 Large Platelets Not Reportable 04/22/17 10:23 Giant Platelets Not Reportable 04/22/17 10:23 Platelet Satelliting Not Reportable 04/22/17 10:23 Plt Morphology Comment Not Reportable 04/22/17 10:23 RBC Morphology Not Reportable 04/22/17 10:23 Dimorphic RBCs Not Reportable 04/22/17 10:23 Polychromasia Not Reportable 04/22/17 10:23 Hypochromasia 1+ 04/22/17 10:23 Poikilocytosis 1+ 04/22/17 10:23 Anisocytosis 2+ 04/22/17 10:23 Microcytosis 1+ 04/22/17 10:23 Macrocytosis Not Reportable 04/22/17 10:23 Spherocytes Not Reportable 04/22/17 10:23 Pappenheimer Bodies Not Reportable 04/22/17 10:23 Sickle Cells Not Reportable 04/22/17 10:23 Target Cells Not Reportable 04/22/17 10:23 Tear Drop Cells Not Reportable 04/22/17 10:23 Ovalocytes Not Reportable 04/22/17 10:23 Helmet Cells Not Reportable 04/22/17 10:23 Ros[place] Bodies Not Reportable 04/22/17 10:23 [place] Rings Not Reportable 04/22/17 10:23 Zeenat Cells Not Reportable 04/22/17 10:23 Bite Cells Not Reportable 04/22/17 10:23 Crenated Cell Not Reportable 04/22/17 10:23 Elliptocytes Not Reportable 04/22/17 10:23 Acanthocytes (Spur) Not Reportable 04/22/17 10:23 Rouleaux Not Reportable 04/22/17 10:23 Hemoglobin C Crystals Not Reportable 04/22/17 10:23 Schistocytes Not Reportable 04/22/17 10:23 Malaria parasites Not Reportable 04/22/17 10:23 Talib Bodies Not Reportable 04/22/17 10:23 Hem Pathologist Commnt No 04/22/17 10:23 Sodium 140 mmol/L (137-145) 04/22/17 10:23 Potassium 4.7 mmol/L (3.6-5.0) 04/22/17 10:23 Chloride 101.5 mmol/L (98-107) 04/22/17 10:23 Carbon Dioxide 24 mmol/L (22-30) 04/22/17 10:23 Anion Gap 19 mmol/L 04/22/17 10:23 BUN 8 mg/dL (9-20) L 04/22/17 10:23 Creatinine 0.7 mg/dL (0.8-1.5) L 04/22/17 10:23 Estimated GFR > 60 ml/min 04/22/17 10:23 BUN/Creatinine Ratio 11 % 04/22/17 10:23 Glucose 90 mg/dL (75-100) 04/22/17 10:23 Calcium 8.2 mg/dL (8.4-10.2) L 04/22/17 10:23 Total Bilirubin 0.30 mg/dL (0.1-1.2) 04/22/17 10:23 AST 19 units/L (5-40) 04/22/17 10:23 ALT 8 units/L (7-56) 04/22/17 10:23 Alkaline Phosphatase 81 units/L (35-129) 04/22/17 10:23 Total Protein 6.6 g/dL (6.3-8.2) 04/22/17 10:23 Albumin 3.1 g/dL (3.9-5) L 04/22/17 10:23 Albumin/Globulin Ratio 0.9 % 04/22/17 10:23 Lipase 8 units/L (13-60) L 04/22/17 10:23 Urine Color Yellow (Yellow) 04/22/17 12:46 Urine Turbidity Clear (Clear) 04/22/17 12:46 Urine pH 6.0 (5.0-7.0) 04/22/17 12:46 Ur Specific [place] 1.015 (1.003-1.030) 04/22/17 12:46 Urine Protein <15 mg/dl mg/dL (Negative) 04/22/17 12:46 Urine Glucose (UA) Neg mg/dL (Negative) 04/22/17 12:46 Urine Ketones Neg mg/dL (Negative) 04/22/17 12:46 Urine Blood Neg (Negative) 04/22/17 12:46 Urine Nitrite Neg (Negative) 04/22/17 12:46 Urine Bilirubin Neg (Negative) 04/22/17 12:46 Urine Urobilinogen 4.0 mg/dL (<2.0) 04/22/17 12:46 Ur Leukocyte Esterase Neg (Negative) 04/22/17 12:46 Urine WBC (Auto) 2.0 /HPF (0.0-6.0) 04/22/17 12:46 Urine RBC (Auto) 1.0 /HPF (0.0-6.0) 04/22/17 12:46 U Epithel Cells (Auto) 2.0 /HPF (0-13.0) 04/22/17 12:46 Urine Bacteria (Auto) 1+ /HPF (Negative) 04/22/17 12:46 Urine Mucus Few /HPF 04/22/17 12:46
[2017-04-24] MEDS: NACL 0.45% 1000 ML 1,000 ML IV SCH (13:31)
--- NOTE | 2017-04-24 13:56 | Progress Note ---
Subjective Patient Reports: Positive: feels better, flatus Narrative: asleep , abd soft awaiting GI opinion Objective Vital Signs - 12hr 04/24/17 04/24/17 10:15 11:22 Temperature 98.5 F Pulse Rate 98 H Respiratory 18 Rate Blood Pressure 119/80 O2 Sat by Pulse 96 94 Oximetry - Labs 04/22/17 10:23 04/22/17 10:23
--- NOTE | 2017-04-24 15:02 | Gastroenterology Consultation ---
History of Present Illness - Reason for Consult Consult date: 04/24/17 colon mass Requesting physician: JUAN ANTONIO MELLO - History of Present Illness The patient is a 61 year old residential resident with cerebral palsy and multiple medical problems brought in due to increasing abdominal distention and gagging. He is unable to give any history. The patient had a feeding gastrostomy although it is not clear when it was placed. Evaluation revealed suspected mass in the splenic flexure with colonic obstruction by CT scan. The proximal colon and small bowel are dilated and the distal colon is collapsed. Past History Past Medical History: other (Cerebral Palsy, contracture, intestinal obstruction , debility) Past Surgical History: Other (PEG tube) Social history: single. denies: smoking, alcohol abuse, prescription drug abuse Family history: hypertension Medications and Allergies Allergies Allergy/AdvReac Type Severity Reaction Status Date / Time No Known Allergies Allergy Unverified 02/05/17 00:08 Home Medications Medication Instructions Recorded Confirmed Last Taken Type Divalproex Dr [Depakote Dr] 250 mg PO Q8H 30 Days 02/16/17 04/22/17 Unknown Rx Acetaminophen [Tylenol] 650 mg PO Q8HR PRN 04/22/17 04/22/17 Unknown History Calcium Carbonate/Vitamin D3 1 tab PO QPM 04/22/17 04/22/17 Unknown History [Calcium 500-Vit D3 200 Tablet] Metoclopramide [Reglan] 10 mg FEEDTUBE Q6H PRN 04/22/17 04/22/17 Unknown History Neomycin/Bacitracin/Polymyxinb 1 applicator TP QPM 04/22/17 04/22/17 Unknown History [Triple Antibiotic Ointment] Ondansetron [Zofran INJ] 4 mg IM Q6HR PRN 04/22/17 04/22/17 Unknown History Pantoprazole [Protonix] 40 mg PO QDAY 04/22/17 04/22/17 Unknown History Phenytoin Sodium Extended 100 mg PO BID 04/22/17 04/22/17 Unknown History [Dilantin] levETIRAcetam [Keppra] 1,500 mg PO BID 04/22/17 04/22/17 Unknown History Active Meds: Active Medications Albuterol (Proventil) 2.5 mg IH Q4HRT PRN PRN Reason: Shortness Of Breath Bisacodyl (Dulcolax) 10 mg [place] QDAY PRN PRN Reason: Constipation unrelieved by MOM Heparin Sodium (Porcine) (Heparin) 5,000 unit SUB-Q Q12H [facility] Sodium Chloride (Nacl 0.45% 1000 Ml) 1,000 mls @ 42 mls/hr IV DIRECT [facility] Last Admin: 04/24/17 13:31 Dose: 42 mls/hr Levetiracetam (Keppra 1,000 Mg/Ns 0.75% 100ml) 1,000 mg in 100 mls @ 400 mls/ hr IV Q12H [facility] Last Admin: 04/24/17 04:40 Dose: 400 mls/hr Valproate Sodium 250 mg/ (Sodium Chloride) 102.5 mls @ 100 mls/hr IV Q8H [facility] Last Admin: 04/23/17 21:20 Dose: 100 mls/hr Magnesium Hydroxide (Milk Of Magnesia) 30 ml PO Q4H PRN PRN Reason: Constipation Ondansetron HCl (Zofran) 4 mg IV Q8H PRN PRN Reason: N/V unrelieved by Reglan Review of Systems - Review of Systems ROS unobtainable: due to mental status Exam - Constitutional Vital Signs: Temp Pulse Resp BP Pulse Ox 98.5 F 98 H 18 119/80 94 04/24/17 11:22 04/24/17 11:22 04/24/17 11:22 04/24/17 11:22 04/24/17 11:22 General appearance: no acute distress, well-nourished - EENT Eyes: PERRL ENT: hearing intact, clear oral mucosa, dentition normal - Neck Neck: supple, normal ROM, no masses or JVD - Respiratory Respiratory effort: normal Respiratory: bilateral: CTA - Breasts Breasts: deferred - Cardiovascular Rhythm: regular Heart Sounds: Present: S1 & S2. Absent: gallop, rub Extremities: pulses intact, No edema, normal color, Full ROM - Gastrointestinal General gastrointestinal: Present: soft, non-tender, distended, other ( tympanic. G tube in LUQ. ) Rectal Exam: deferred - Genitourinary Male Genitourinary: deferred - Integumentary Integumentary: Present: clear, warm, dry - Neurologic Neurological: other (Follows simple commands slowly, appears to move all extremities.) - Psychiatric Psychiatric: no intact judgment & insight, cooperative - Labs CBC & Chem 7: 04/22/17 10:23 04/22/17 10:23 - Imaging X-ray: report reviewed, image reviewed CT Scan: report reviewed, image reviewed Assessment and Plan - Patient Problems (1) Bowel obstruction Current Visit: Yes Status: Acute Plan to address problem: Probable cancer of the colon in the splenic flexure in light of mass suspected on CT scan, however, rule out adhesions, complications of G tube, eg passing through the colon. Colonoscopy cannot feasibly be done due to obstruction. Will place G tube to suction. Consider BE if imaging needed or go forward with surgery. His risks are higher with his co morbid conditions. Family was not available for discussion at the time of my visit. Thank you for asking me to see him in consultation. (2) Colonic mass Current Visit: Yes Status: Acute Plan to address problem: Suspected cancer. (3) Cerebral palsy Current Visit: Yes Status: Chronic Plan to address problem: Non verbal and probably bed ridden.
[2017-04-24] MEDS: HEPARIN SUB-Q SCH (17:34)
[2017-04-24] MEDS: NACL 0.9% IV SCH ×2 (17:34)
[2017-04-24] MEDS: DEPACON IV SCH ×2 (17:34)
[2017-04-25] MEDS: HEPARIN SUB-Q SCH ×2 (06:00→18:01)
[2017-04-25] MEDS: DEPACON IV SCH ×3 (06:22→18:03)
[2017-04-25] MEDS: NACL 0.9% IV SCH ×3 (06:22→18:03)
[2017-04-25] MEDS: KEPPRA 1,000 MG/NS 0.75% 100ML 1,000 MG/100 ML BAG IV SCH ×2 (06:23→18:00)
--- NOTE | 2017-04-25 10:27 | Gastroenterology Progress Note ---
Assessment and Plan - Patient Problems (1) Bowel obstruction Current Visit: Yes Status: Acute Plan to address problem: Colon obstruction at splenic flexure. Will need surgery if not improving. Cannot do colonoscopy due to obstruction and inability to prepare the colon. Will order f/u KUB. (2) Colonic mass Current Visit: Yes Status: Acute (3) Cerebral palsy Current Visit: Yes Status: Chronic Subjective Date of service: 04/25/17 Principal diagnosis: bowel obstruction Interval history: The patient denies discomfort, but is minimal verbal. Objective - Constitutional Vitals: Temp Pulse Resp BP Pulse Ox 98.1 F 76 16 123/69 93 04/25/17 08:09 04/25/17 08:09 04/25/17 08:09 04/25/17 08:09 04/25/17 08:09 General appearance: no acute distress - EENT ENT: hearing intact - Neck Neck: supple, normal ROM - Respiratory Respiratory effort: normal Respiratory: bilateral: CTA - Cardiovascular Rhythm: regular - Gastrointestinal General gastrointestinal: Present: soft, non-tender, distended (Mild distension) , normal bowel sounds Rectal Exam: deferred - Genitourinary Male Genitourinary: deferred - Integumentary Integumentary: Present: clear, warm, dry - Neurologic Neurological: generalized weakness - Labs CBC & Chem 7: 04/22/17 10:23 04/22/17 10:23
[2017-04-25 11:07] LABS: Hemoglobin 12.1 gm/dl (11.8-15.2); Mean Corpuscular HGB Conc 32 % (32-34); Platelet Count 193 K/mm3 (140-440); Red Blood Count 5.48 M/mm3 (3.65-5.03); White Blood Count 4.4 K/mm3 (4.5-11.0)
[2017-04-25 11:08] LABS: Mean Corpuscular Hemoglobin 22 pg (28-32); Mean Corpuscular Volume 69 fl (84-94)
[2017-04-25 11:09] LABS: Red Cell Distribution Width 21.5 % (13.2-15.2)
[2017-04-25 11:26] LABS: Alanine Aminotransferase 6 units/L (7-56); Albumin 2.7 g/dL (3.9-5); Albumin/Globulin Ratio 0.8 %; Alkaline Phosphatase 77 units/L (35-129); Anion Gap 21 mmol/L; BUN/Creatinine Ratio 15; Blood Urea Nitrogen 9 mg/dL (9-20); Carbon Dioxide 22 mmol/L (22-30); Chloride 99.8 mmol/L (98-107); Glucose 71 mg/dL (75-100); Potassium 4.6 mmol/L (3.6-5.0); Sodium 138 mmol/L (137-145)
--- NOTE | 2017-04-25 13:32 | XRay Report ---
SUPINE KUB: History: Bowel obstruction. Oral contrast has advanced into the distal small bowel loops and colon. Mildly dilated loops of colon and distal small bowel loops have not significantly changed. The distal colon is decompressed. PEG tube is in the same position. No change is appreciated since 04/23/17. IMPRESSION: No significant change in the bowel obstruction pattern.
--- NOTE | 2017-04-25 16:18 | Progress Note ---
Assessment and Plan Assessment and plan: Patient is 61 yo man from [facility] with h/o seizre disorder, severe debilitating Cerebral palsy resulting in functional quadriplegia, leg contractures and peg tube placement who presented with abd pains. CT abd/pelvis with contrast reported as "probable colon mass near the splenic fracture which mildly obstructs..." -Small bowel obstruction: Consult to Gen. surgery -Colon mass with obstruction suspect Colon Cancer: nothing by mouth: Consult GI -Seizure disorder: Change Keppra to IV -Oropharyngeal dysphagia with PEG tube management: Hold feedings for now -Function quadriplegia: PT/OT -DVT prophylaxis: Add subcutaneous heparin Abdomen x-ray 04/23/2017 reported as colon obstruction.. Obstruction is likely in the distal transverse colon I did Call and d/w caregiver Karen Rondon in [phone] History Interval history: Patient was seen and examined. Follow-up on current diagnosis. Overnight uneventful. Patient mumbles and words appear incomprehensible. Imaging, nursing note, chart, labs and old chart reviewed. Hospitalist Physical - Physical exam Narrative exam: GEN: ill appearing, chronically debilitated and frail NAD, mainly unresponsive in semi-vegetative state with mouth open HEENT: EOMI, PERRL, OP dry NECK: supple, no adenopathy, no thyromegaly, no JVD CVS/HEART: RRR, NORMAL S1S2, NO JVD, pulses present bilaterally CHEST/LUNGS: CTA B, Symmetrical chest expansion, good air entry bilaterally GI/Abdomen: soft, distended good bowel sounds, no guarding or rebound /Bladder: no suprapubic tenderness, no CVA or paraspinal tenderness EXT/Skin: Atrophic female MSK: Contractures Neuro: CN 2-12 grossly intact, doesn't follow commands Psych: Mumbles - Constitutional Vitals: Temp Pulse Resp BP Pulse Ox 98.1 F 76 16 123/69 93 04/25/17 08:09 04/25/17 08:09 04/25/17 08:09 04/25/17 08:09 04/25/17 08:09 Results - Labs CBC & Chem 7: 04/25/17 10:52 04/25/17 10:52 Labs: Laboratory Last Values WBC 4.4 K/mm3 (4.5-11.0) L 04/25/17 10:52 RBC 5.48 M/mm3 (3.65-5.03) H 04/25/17 10:52 Hgb 12.1 gm/dl (11.8-15.2) 04/25/17 10:52 Hct 38.0 % (35.5-45.6) 04/25/17 10:52 MCV 69 fl (84-94) L 04/25/17 10:52 MCH 22 pg (28-32) L 04/25/17 10:52 MCHC 32 % (32-34) 04/25/17 10:52 RDW 21.5 % (13.2-15.2) H 04/25/17 10:52 Plt Count 193 K/mm3 (140-440) 04/25/17 10:52 Lymph % (Auto) Mixer Operator Tablets 04/22/17 10:23 [place] % (Auto) Mixer Operator Tablets 04/22/17 10:23 Eos % (Auto) Mixer Operator Tablets 04/22/17 10:23 Baso % (Auto) Mixer Operator Tablets 04/22/17 10:23 Lymph # Mixer Operator Tablets 04/22/17 10:23 [place] # Mixer Operator Tablets 04/22/17 10:23 Eos # Mixer Operator Tablets 04/22/17 10:23 Baso # Mixer Operator Tablets 04/22/17 10:23 Add Manual Diff Complete 04/22/17 10:23 Total Counted 100 04/22/17 10:23 Seg Neutrophils % Mixer Operator Tablets 04/22/17 10:23 Seg Neuts % (Manual) 52.0 % (40.0-70.0) 04/22/17 10:23 Band Neutrophils % 2.0 % 04/22/17 10:23 Lymphocytes % (Manual) 28.0 % (13.4-35.0) 04/22/17 10:23 Reactive Lymphs % (Man) 0 % 04/22/17 10:23 Monocytes % (Manual) 17.0 % (0.0-7.3) H 04/22/17 10:23 Eosinophils % (Manual) 1.0 % (0.0-4.3) 04/22/17 10:23 Basophils % (Manual) 0 % (0.0-1.8) 04/22/17 10:23 Metamyelocytes % 0 % 04/22/17 10:23 Myelocytes % 0 % 04/22/17 10:23 Promyelocytes % 0 % 04/22/17 10:23 Blast Cells % 0 % 04/22/17 10:23 Nucleated RBC % Not Reportable 04/22/17 10:23 Seg Neutrophils # Mixer Operator Tablets 04/22/17 10:23 Seg Neutrophils # Man 3.1 K/mm3 (1.8-7.7) 04/22/17 10:23 Band Neutrophils # 0.1 K/mm3 04/22/17 10:23 Lymphocytes # (Manual) 1.7 K/mm3 (1.2-5.4) 04/22/17 10:23 Abs React Lymphs (Man) 0.0 K/mm3 04/22/17 10:23 Monocytes # (Manual) 1.0 K/mm3 (0.0-0.8) H 04/22/17 10:23 Eosinophils # (Manual) 0.1 K/mm3 (0.0-0.4) 04/22/17 10:23 Basophils # (Manual) 0.0 K/mm3 (0.0-0.1) 04/22/17 10:23 Metamyelocytes # 0.0 K/mm3 04/22/17 10:23 Myelocytes # 0.0 K/mm3 04/22/17 10:23 Promyelocytes # 0.0 K/mm3 04/22/17 10:23 Blast Cells # 0.0 K/mm3 04/22/17 10:23 WBC Morphology Not Reportable 04/22/17 10:23 Hypersegmented Neuts Not Reportable 04/22/17 10:23 Hyposegmented Neuts Not Reportable 04/22/17 10:23 Hypogranular Neuts Not Reportable 04/22/17 10:23 Smudge Cells Not Reportable 04/22/17 10:23 Toxic Granulation Not Reportable 04/22/17 10:23 Toxic Vacuolation Not Reportable 04/22/17 10:23 Dohle Bodies Not Reportable 04/22/17 10:23 [place] Anomaly Not Reportable 04/22/17 10:23 Ananda Rods Not Reportable 04/22/17 10:23 Platelet Estimate Not Reportable 04/22/17 10:23 Clumped Platelets Not Reportable 04/22/17 10:23 Plt Clumps, EDTA Not Reportable 04/22/17 10:23 Large Platelets Not Reportable 04/22/17 10:23 Giant Platelets Not Reportable 04/22/17 10:23 Platelet Satelliting Not Reportable 04/22/17 10:23 Plt Morphology Comment Not Reportable 04/22/17 10:23 RBC Morphology Not Reportable 04/22/17 10:23 Dimorphic RBCs Not Reportable 04/22/17 10:23 Polychromasia Not Reportable 04/22/17 10:23 Hypochromasia 1+ 04/22/17 10:23 Poikilocytosis 1+ 04/22/17 10:23 Anisocytosis 2+ 04/22/17 10:23 Microcytosis 1+ 04/22/17 10:23 Macrocytosis Not Reportable 04/22/17 10:23 Spherocytes Not Reportable 04/22/17 10:23 Pappenheimer Bodies Not Reportable 04/22/17 10:23 Sickle Cells Not Reportable 04/22/17 10:23 Target Cells Not Reportable 04/22/17 10:23 Tear Drop Cells Not Reportable 04/22/17 10:23 Ovalocytes Not Reportable 04/22/17 10:23 Helmet Cells Not Reportable 04/22/17 10:23 [place] Bodies Not Reportable 04/22/17 10:23 [place] Rings Not Reportable 04/22/17 10:23 Zeenat Cells Not Reportable 04/22/17 10:23 Bite Cells Not Reportable 04/22/17 10:23 Crenated Cell Not Reportable 04/22/17 10:23 Elliptocytes Not Reportable 04/22/17 10:23 Acanthocytes (Spur) Not Reportable 04/22/17 10:23 Rouleaux Not Reportable 04/22/17 10:23 Hemoglobin C Crystals Not Reportable 04/22/17 10:23 Schistocytes Not Reportable 04/22/17 10:23 Malaria parasites Not Reportable 04/22/17 10:23 Talib Bodies Not Reportable 04/22/17 10:23 Hem Pathologist Commnt No 04/22/17 10:23 Sodium 138 mmol/L (137-145) 04/25/17 10:52 Potassium 4.6 mmol/L (3.6-5.0) 04/25/17 10:52 Chloride 99.8 mmol/L (98-107) 04/25/17 10:52 Carbon Dioxide 22 mmol/L (22-30) 04/25/17 10:52 Anion Gap 21 mmol/L 04/25/17 10:52 BUN 9 mg/dL (9-20) 04/25/17 10:52 Creatinine 0.6 mg/dL (0.8-1.5) L 04/25/17 10:52 Estimated GFR > 60 ml/min 04/25/17 10:52 BUN/Creatinine Ratio 15 % 04/25/17 10:52 Glucose 71 mg/dL (75-100) L 04/25/17 10:52 POC Glucose 70 (70-105) 04/25/17 11:49 Calcium 8.0 mg/dL (8.4-10.2) L 04/25/17 10:52 Total Bilirubin 0.30 mg/dL (0.1-1.2) 04/25/17 10:52 AST 13 units/L (5-40) 04/25/17 10:52 ALT 6 units/L (7-56) L 04/25/17 10:52 Alkaline Phosphatase 77 units/L (35-129) 04/25/17 10:52 Total Protein 6.0 g/dL (6.3-8.2) L 04/25/17 10:52 Albumin 2.7 g/dL (3.9-5) L 04/25/17 10:52 Albumin/Globulin Ratio 0.8 % 04/25/17 10:52 Lipase 8 units/L (13-60) L 04/22/17 10:23 Urine Color Yellow (Yellow) 04/22/17 12:46 Urine Turbidity Clear (Clear) 04/22/17 12:46 Urine pH 6.0 (5.0-7.0) 04/22/17 12:46 Ur Specific [place] 1.015 (1.003-1.030) 04/22/17 12:46 Urine Protein <15 mg/dl mg/dL (Negative) 04/22/17 12:46 Urine Glucose (UA) Neg mg/dL (Negative) 04/22/17 12:46 Urine Ketones Neg mg/dL (Negative) 04/22/17 12:46 Urine Blood Neg (Negative) 04/22/17 12:46 Urine Nitrite Neg (Negative) 04/22/17 12:46 Urine Bilirubin Neg (Negative) 04/22/17 12:46 Urine Urobilinogen 4.0 mg/dL (<2.0) 04/22/17 12:46 Ur Leukocyte Esterase Neg (Negative) 04/22/17 12:46 Urine WBC (Auto) 2.0 /HPF (0.0-6.0) 04/22/17 12:46 Urine RBC (Auto) 1.0 /HPF (0.0-6.0) 04/22/17 12:46 U Epithel Cells (Auto) 2.0 /HPF (0-13.0) 04/22/17 12:46 Urine Bacteria (Auto) 1+ /HPF (Negative) 04/22/17 12:46 Urine Mucus Few /HPF 04/22/17 12:46
[2017-04-25] MEDS: NACL 0.45% 1000 ML 1,000 ML IV SCH (18:00)
[2017-04-26] MEDS: DEPACON IV SCH ×3 (01:03→14:00)
[2017-04-26] MEDS: NACL 0.9% IV SCH ×3 (01:03→14:00)
[2017-04-26] MEDS ORDERED: D5/0.45NS 1,000 ML IV SCH (02:00)
--- NOTE | 2017-04-26 04:51 | Progress Note ---
Subjective Narrative: seen yesterday no change in clinical status , Noted Pt is not for colonoscopy as per recommedation Dr Jose , , will need exploration with colon resection will talk to family , will arrange .will check KUB , Objective Vital Signs - 12hr 04/25/17 04/25/17 20:36 21:57 Temperature 98.5 F Pulse Rate 88 Pulse Rate [ 88 Left Radial] Respiratory 20 20 Rate Blood Pressure 122/84 O2 Sat by Pulse 96 Oximetry - Labs 04/25/17 10:52 04/25/17 10:52 Diabetes panel 04/25/17 Range/Units 10:52 Sodium 138 (137-145) mmol/L Potassium 4.6 (3.6-5.0) mmol/L Chloride 99.8 (98-107) mmol/L Carbon Dioxide 22 (22-30) mmol/L BUN 9 (9-20) mg/dL Creatinine 0.6 L (0.8-1.5) mg/dL Glucose 71 L (75-100) mg/dL Calcium 8.0 L (8.4-10.2) mg/dL AST 13 (5-40) units/L ALT 6 L (7-56) units/L Alkaline Phosphatase 77 (35-129) units/L Total Protein 6.0 L (6.3-8.2) g/dL Albumin 2.7 L (3.9-5) g/dL Calcium panel 04/25/17 Range/Units 10:52 Calcium 8.0 L (8.4-10.2) mg/dL Albumin 2.7 L (3.9-5) g/dL Pituitary panel 04/25/17 Range/Units 10:52 Sodium 138 (137-145) mmol/L Potassium 4.6 (3.6-5.0) mmol/L Chloride 99.8 (98-107) mmol/L Carbon Dioxide 22 (22-30) mmol/L BUN 9 (9-20) mg/dL Creatinine 0.6 L (0.8-1.5) mg/dL Glucose 71 L (75-100) mg/dL Calcium 8.0 L (8.4-10.2) mg/dL Adrenal panel 04/25/17 Range/Units 10:52 Sodium 138 (137-145) mmol/L Potassium 4.6 (3.6-5.0) mmol/L Chloride 99.8 (98-107) mmol/L Carbon Dioxide 22 (22-30) mmol/L BUN 9 (9-20) mg/dL Creatinine 0.6 L (0.8-1.5) mg/dL Glucose 71 L (75-100) mg/dL Calcium 8.0 L (8.4-10.2) mg/dL Total Bilirubin 0.30 (0.1-1.2) mg/dL AST 13 (5-40) units/L ALT 6 L (7-56) units/L Alkaline Phosphatase 77 (35-129) units/L Total Protein 6.0 L (6.3-8.2) g/dL Albumin 2.7 L (3.9-5) g/dL
[2017-04-26] MEDS: KEPPRA 1,000 MG/NS 0.75% 100ML 1,000 MG/100 ML BAG IV SCH (04:57)
[2017-04-26] MEDS: HEPARIN SUB-Q SCH (06:10)
[2017-04-26] MEDS ORDERED: D50W (25GM) Vial IV ONE (06:12)
[2017-04-26] MEDS: ERY-TAB PO SCH ×2 (06:43→12:29)
[2017-04-26 07:15] LABS: INR 1.08 (0.87-1.13)
--- NOTE | 2017-04-26 10:40 | XRay Report ---
AP abdomen History: Colon mass. Findings: No change is demonstrated since yesterday's exam at 04/25/17. Persistent dilated loops of distal small bowel and proximal colon are again noted. Impression: No change.
[2017-04-26] MEDS: NEOMYCIN PO SCH ×2 (12:29→14:00)
[2017-04-26] MEDS ORDERED: ANCEF/STERILE WATER 2 GM/20 ML IV NR (13:10)
--- NOTE | 2017-04-26 13:28 | Progress Note ---
Assessment and Plan Assessment and plan: Patient is 61 yo man from [facility] with h/o seizre disorder, severe debilitating Cerebral palsy resulting in functional quadriplegia, leg contractures and peg tube placement who presented with abd pains. CT abd/pelvis with contrast reported as "probable colon mass near the splenic fracture which mildly obstructs..." -Small bowel obstruction: Consult to Gen. surgery -Colon mass with obstruction suspect Colon Cancer: nothing by mouth: Consult GI -Seizure disorder: Change Keppra to IV -Oropharyngeal dysphagia with PEG tube management: Hold feedings for now -Function quadriplegia: PT/OT -DVT prophylaxis: Add subcutaneous heparin Abdomen x-ray 04/23/2017 reported as colon obstruction.. Obstruction is likely in the distal transverse colon I did Call and d/w caregiver Karen Rondon in [phone] 04/26/17: d/w caregiver Karen at bedside, going for bowel surgery today History Interval history: Patient was seen and examined. Follow-up on current diagnosis. Overnight uneventful. Patient mumbles and words appear incomprehensible. Imaging, nursing note, chart, labs and old chart reviewed. Hospitalist Physical - Physical exam Narrative exam: GEN: ill appearing, chronically debilitated and frail NAD, mainly unresponsive in semi-vegetative state with mouth open HEENT: EOMI, PERRL, OP dry NECK: supple, no adenopathy, no thyromegaly, no JVD CVS/HEART: RRR, NORMAL S1S2, NO JVD, pulses present bilaterally CHEST/LUNGS: CTA B, Symmetrical chest expansion, good air entry bilaterally GI/Abdomen: soft, distended good bowel sounds, no guarding or rebound /Bladder: no suprapubic tenderness, no CVA or paraspinal tenderness EXT/Skin: Atrophic female MSK: Contractures Neuro: CN 2-12 grossly intact, doesn't follow commands Psych: Mumbles - Constitutional Vitals: Temp Pulse Resp BP Pulse Ox 99.0 F 81 18 123/81 96 04/26/17 12:15 04/26/17 12:15 04/26/17 12:15 04/26/17 12:15 04/26/17 12:15 Results - Labs CBC & Chem 7: 04/25/17 10:52 04/25/17 10:52 Labs: Laboratory Last Values WBC 4.4 K/mm3 (4.5-11.0) L 04/25/17 10:52 RBC 5.48 M/mm3 (3.65-5.03) H 04/25/17 10:52 Hgb 12.1 gm/dl (11.8-15.2) 04/25/17 10:52 Hct 38.0 % (35.5-45.6) 04/25/17 10:52 MCV 69 fl (84-94) L 04/25/17 10:52 MCH 22 pg (28-32) L 04/25/17 10:52 MCHC 32 % (32-34) 04/25/17 10:52 RDW 21.5 % (13.2-15.2) H 04/25/17 10:52 Plt Count 193 K/mm3 (140-440) 04/25/17 10:52 Lymph % (Auto) [employer]ent [employer]er 04/22/17 10:23 [place] % (Auto) Talent [employer]er 04/22/17 10:23 Eos % (Auto) Talent [employer]er 04/22/17 10:23 Baso % (Auto) Talent [employer]er 04/22/17 10:23 Lymph # Talent [employer]er 04/22/17 10:23 [place] # Talent Buyer 04/22/17 10:23 Eos # Talent Buyer 04/22/17 10:23 Baso # Talent Buyer 04/22/17 10:23 Add Manual Diff Complete 04/22/17 10:23 Total Counted 100 04/22/17 10:23 Seg Neutrophils % Talent [employer]er 04/22/17 10:23 Seg Neuts % (Manual) 52.0 % (40.0-70.0) 04/22/17 10:23 Band Neutrophils % 2.0 % 04/22/17 10:23 Lymphocytes % (Manual) 28.0 % (13.4-35.0) 04/22/17 10:23 Reactive Lymphs % (Man) 0 % 04/22/17 10:23 Monocytes % (Manual) 17.0 % (0.0-7.3) H 04/22/17 10:23 Eosinophils % (Manual) 1.0 % (0.0-4.3) 04/22/17 10:23 Basophils % (Manual) 0 % (0.0-1.8) 04/22/17 10:23 Metamyelocytes % 0 % 04/22/17 10:23 Myelocytes % 0 % 04/22/17 10:23 Promyelocytes % 0 % 04/22/17 10:23 Blast Cells % 0 % 04/22/17 10:23 Nucleated RBC % Not Reportable 04/22/17 10:23 Seg Neutrophils # Talent Buyer 04/22/17 10:23 Seg Neutrophils # Man 3.1 K/mm3 (1.8-7.7) 04/22/17 10:23 Band Neutrophils # 0.1 K/mm3 04/22/17 10:23 Lymphocytes # (Manual) 1.7 K/mm3 (1.2-5.4) 04/22/17 10:23 Abs React Lymphs (Man) 0.0 K/mm3 04/22/17 10:23 Monocytes # (Manual) 1.0 K/mm3 (0.0-0.8) H 04/22/17 10:23 Eosinophils # (Manual) 0.1 K/mm3 (0.0-0.4) 04/22/17 10:23 Basophils # (Manual) 0.0 K/mm3 (0.0-0.1) 04/22/17 10:23 Metamyelocytes # 0.0 K/mm3 04/22/17 10:23 Myelocytes # 0.0 K/mm3 04/22/17 10:23 Promyelocytes # 0.0 K/mm3 04/22/17 10:23 Blast Cells # 0.0 K/mm3 04/22/17 10:23 WBC Morphology Not Reportable 04/22/17 10:23 Hypersegmented Neuts Not Reportable 04/22/17 10:23 Hyposegmented Neuts Not Reportable 04/22/17 10:23 Hypogranular Neuts Not Reportable 04/22/17 10:23 Smudge Cells Not Reportable 04/22/17 10:23 Toxic Granulation Not Reportable 04/22/17 10:23 Toxic Vacuolation Not Reportable 04/22/17 10:23 Dohle Bodies Not Reportable 04/22/17 10:23 Pelger-Huet Anomaly Not Reportable 04/22/17 10:23 Ananda Rods Not Reportable 04/22/17 10:23 Platelet Estimate Not Reportable 04/22/17 10:23 Clumped Platelets Not Reportable 04/22/17 10:23 Plt Clumps, EDTA Not Reportable 04/22/17 10:23 Large Platelets Not Reportable 04/22/17 10:23 Giant Platelets Not Reportable 04/22/17 10:23 Platelet Satelliting Not Reportable 04/22/17 10:23 Plt Morphology Comment Not Reportable 04/22/17 10:23 RBC Morphology Not Reportable 04/22/17 10:23 Dimorphic RBCs Not Reportable 04/22/17 10:23 Polychromasia Not Reportable 04/22/17 10:23 Hypochromasia 1+ 04/22/17 10:23 Poikilocytosis 1+ 04/22/17 10:23 Anisocytosis 2+ 04/22/17 10:23 Microcytosis 1+ 04/22/17 10:23 Macrocytosis Not Reportable 04/22/17 10:23 Spherocytes Not Reportable 04/22/17 10:23 Pappenheimer Bodies Not Reportable 04/22/17 10:23 Sickle Cells Not Reportable 04/22/17 10:23 Target Cells Not Reportable 04/22/17 10:23 Tear Drop Cells Not Reportable 04/22/17 10:23 Ovalocytes Not Reportable 04/22/17 10:23 Helmet Cells Not Reportable 04/22/17 10:23 [place] Bodies Not Reportable 04/22/17 10:23 [place] Rings Not Reportable 04/22/17 10:23 Zeenat Cells Not Reportable 04/22/17 10:23 Bite Cells Not Reportable 04/22/17 10:23 Crenated Cell Not Reportable 04/22/17 10:23 Elliptocytes Not Reportable 04/22/17 10:23 Acanthocytes (Spur) Not Reportable 04/22/17 10:23 Rouleaux Not Reportable 04/22/17 10:23 Hemoglobin C Crystals Not Reportable 04/22/17 10:23 Schistocytes Not Reportable 04/22/17 10:23 Malaria parasites Not Reportable 04/22/17 10:23 Talib Bodies Not Reportable 04/22/17 10:23 Hem Pathologist Commnt No 04/22/17 10:23 PT 14.6 Sec. (12.2-14.9) 04/26/17 06:05 INR 1.08 (0.87-1.13) 04/26/17 06:05 Sodium 138 mmol/L (137-145) 04/25/17 10:52 Potassium 4.6 mmol/L (3.6-5.0) 04/25/17 10:52 Chloride 99.8 mmol/L (98-107) 04/25/17 10:52 Carbon Dioxide 22 mmol/L (22-30) 04/25/17 10:52 Anion Gap 21 mmol/L 04/25/17 10:52 BUN 9 mg/dL (9-20) 04/25/17 10:52 Creatinine 0.6 mg/dL (0.8-1.5) L 04/25/17 10:52 Estimated GFR > 60 ml/min 04/25/17 10:52 BUN/Creatinine Ratio 15 % 04/25/17 10:52 Glucose 71 mg/dL (75-100) L 04/25/17 10:52 POC Glucose 94 (70-105) 04/26/17 11:42 Calcium 8.0 mg/dL (8.4-10.2) L 04/25/17 10:52 Total Bilirubin 0.30 mg/dL (0.1-1.2) 04/25/17 10:52 AST 13 units/L (5-40) 04/25/17 10:52 ALT 6 units/L (7-56) L 04/25/17 10:52 Alkaline Phosphatase 77 units/L (35-129) 04/25/17 10:52 Total Protein 6.0 g/dL (6.3-8.2) L 04/25/17 10:52 Albumin 2.7 g/dL (3.9-5) L 04/25/17 10:52 Albumin/Globulin Ratio 0.8 % 04/25/17 10:52 Lipase 8 units/L (13-60) L 04/22/17 10:23 Urine Color Yellow (Yellow) 04/22/17 12:46 Urine Turbidity Clear (Clear) 04/22/17 12:46 Urine pH 6.0 (5.0-7.0) 04/22/17 12:46 Ur Specific [place] 1.015 (1.003-1.030) 04/22/17 12:46 Urine Protein <15 mg/dl mg/dL (Negative) 04/22/17 12:46 Urine Glucose (UA) Neg mg/dL (Negative) 04/22/17 12:46 Urine Ketones Neg mg/dL (Negative) 04/22/17 12:46 Urine Blood Neg (Negative) 04/22/17 12:46 Urine Nitrite Neg (Negative) 04/22/17 12:46 Urine Bilirubin Neg (Negative) 04/22/17 12:46 Urine Urobilinogen 4.0 mg/dL (<2.0) 04/22/17 12:46 Ur Leukocyte Esterase Neg (Negative) 04/22/17 12:46 Urine WBC (Auto) 2.0 /HPF (0.0-6.0) 04/22/17 12:46 Urine RBC (Auto) 1.0 /HPF (0.0-6.0) 04/22/17 12:46 U Epithel Cells (Auto) 2.0 /HPF (0-13.0) 04/22/17 12:46 Urine Bacteria (Auto) 1+ /HPF (Negative) 04/22/17 12:46 Urine Mucus Few /HPF 04/22/17 12:46
[2017-04-26] MEDS ORDERED: DIPRIVAN 10 MG/ML IV ONE (13:38)
[2017-04-26] MEDS ORDERED: SUBLIMAZE ONE (13:39)
[2017-04-26] MEDS ORDERED: XYLOCAINE MPF 2% ONE (13:43)
[2017-04-26] MEDS ORDERED: PEPCID IV NR (13:45)
[2017-04-26] MEDS ORDERED: NACL 0.9% 1000 ML 1,000 ML IV SCH (13:45)
[2017-04-26] MEDS ORDERED: ZEMURON IV ONE ×2 (13:50)
[2017-04-26] MEDS ORDERED: NEO SYNEPHRINE/NS Syringe(OR USE) IV ONE (15:25)
[2017-04-26] MEDS ORDERED: BREVIBLOC IV ONE (15:25)
[2017-04-26] MEDS ORDERED: NACL 0.9% IR ONE (16:00)
[2017-04-26] MEDS ORDERED: ROBINUL ONE (16:13)
[2017-04-26] MEDS ORDERED: NEOSTIGMINE ONE (16:13)
[2017-04-26] MEDS ORDERED: DILAUDID ONE (16:15)
[2017-04-26] MEDS ORDERED: ZOFRAN ONE (16:23)
[2017-04-26] MEDS ORDERED: NACL 0.9% 1000 ML 1,000 ML ONE (16:33)
[2017-04-26] MEDS ORDERED: VASELINE LIP THERAPY TP PRN (16:52)
[2017-04-26] MEDS ORDERED: ARTIFICIAL TEARS OPHTH OINT OU PRN (16:52)
[2017-04-26] MEDS ORDERED: D5W/0.45% NACL/KCL 20 MEQ 20 MEQ/1,000 ML BAG IV SCH (17:00)
[2017-04-26] MEDS ORDERED: NACL 0.9% 500 ML IV SCH (17:00)
[2017-04-26] MEDS ORDERED: MORPHINE IV NR (17:19)
--- NOTE | 2017-04-26 17:20 | Anesthesia Consultation ---
Anesthesia Consult and Med Hx Date of service: 04/26/17 - Airway Anesthetic Teeth Evaluation: Poor ROM Head & Neck: Adequate Mental/Hyoid Distance: Adequate Mallampati Class: Class II Intubation Access Assessment: Possibly Difficult - Pulmonary Exam CTA: Yes - Cardiac Exam Cardiac Exam: RRR - Pre-Operative Health Status ASA Pre-Surgery Classification: ASA4 Proposed Anesthetic Plan: General - Pulmonary Hx Asthma: No COPD: No Hx Pneumonia: No - Central Nervous System Hx Neuromuscular Disorder: Yes (cerebral palsy) Hx Seizures: Yes - Gastrointestinal Hx Gastroesophageal Reflux Disease: Yes - Endocrine Hx End Stage Renal Disease: No - Additional Comments Anesthesia Medical History Comments: Pt is functional quadraplegic with distal SBO. Succinyl choline is contraindicated due to risk of hyperkalemic cardiac arrest. Will intubate with rocuronium.
--- NOTE | 2017-04-26 17:21 | Anesthesia Day of Surgery ---
Anesthesia Day of Surgery - Day of Surgery Patient Examined: Yes Patient H&P Reviewed: Yes Patient is NPO: Yes
[2017-04-26] MEDS ORDERED: MORPHINE IV PRN (17:22)
--- NOTE | 2017-04-26 17:22 | Post Anesthesia Evaluation ---
- Post Anesthesia Evaluation Patient Participated: No Airway Patent: Yes Stable Respiratory Function: Yes Nausea/Vomiting: No Temp > 96.8F: Yes Pain Manageable: Yes Adequeate Hydration: Yes Anesthesia Complications: No Patient on Ventilator: Yes
[2017-04-26] MEDS ORDERED: DIPRIVAN 10 MG/ML 1,000 MG/100 ML BOTTLE IV ONE (17:24)
[2017-04-26 17:34] LABS: ISTAT Base Excess -5; ISTAT HCO3 19.7; ISTAT PCO2 31.7 (35-45); ISTAT PH 7.401 (7.35-7.45); ISTAT PO2 258 (80-105); ISTAT SO2 100; ISTAT TCO2 21
[2017-04-26] MEDS ORDERED: DIPRIVAN 10 MG/ML 1,000 MG/100 ML BOTTLE IV SCH (18:00)
--- NOTE | 2017-04-26 18:47 | Consultation ---
History of Present Illness Consult date: 04/26/17 Requesting physician: JUAN ANTONIO MELLO Reason for consult: other History of present illness: 61 yo male Care Home Resident with Cerebral Palsy, Chronic Dysphagia S/P PEG Tube Placement, Intestinal Obstruction, Debility, Contracture presents to ED for evaluation. Pt unable to provide history, but history taken from NH staff, and ED staff. As per SNF staff, the patient was found to have worsening abdominal distention over the past 3 days as well as gagging episodes today. EMS notified and patient transported to [facility] for evaluation and further care. Pt seen and evaluated in ED and found to have a colon mass, and concomitant partial bowel obstruction. Surgery team consulted in ED. No reports of fever, chills, CP, Palpitations, skin rash, loss of consciousness, BRBPR, Productive cough, or recent ill contacts. CT abd/pelvis with contrast reported as "probable colon mass near the splenic fracture which mildly obstructs..." Patient was taken to OR and a colonic mass was resected. He is intubated on mechanical ventilatory support and we have been consulted for critical care management and weaning off mechanical ventilatory support. Past History Past Medical History: other (Cerebral Palsy, contracture, intestinal obstruction , debility) Past Surgical History: Other (PEG tube) Social history: single. denies: smoking, alcohol abuse, prescription drug abuse Family history: hypertension Medications and Allergies Allergies Allergy/AdvReac Type Severity Reaction Status Date / Time No Known Allergies Allergy Unverified 02/05/17 00:08 Home Medications Medication Instructions Recorded Confirmed Last Taken Type Divalproex [Myra Guzman] 250 mg PO Q8H 30 Days 02/16/17 04/22/17 Unknown Rx Acetaminophen [Tylenol] 650 mg PO Q8HR PRN 04/22/17 04/22/17 Unknown History Calcium Carbonate/Vitamin D3 1 tab PO QPM 04/22/17 04/22/17 Unknown History [Calcium 500-Vit D3 200 Tablet] Metoclopramide [Reglan] 10 mg FEEDTUBE Q6H PRN 04/22/17 04/22/17 Unknown History Neomycin/Bacitracin/Polymyxinb 1 applicator TP QPM 04/22/17 04/22/17 Unknown History [Triple Antibiotic Ointment] Ondansetron [Zofran INJ] 4 mg IM Q6HR PRN 04/22/17 04/22/17 Unknown History Pantoprazole [Protonix] 40 mg PO QDAY 04/22/17 04/22/17 Unknown History Phenytoin Sodium Extended 100 mg PO BID 04/22/17 04/22/17 Unknown History [Dilantin] levETIRAcetam [Keppra] 1,500 mg PO BID 04/22/17 04/22/17 Unknown History Active Meds: Active Medications Albuterol (Proventil) 2.5 mg IH Q4HRT PRN PRN Reason: Shortness Of Breath Bisacodyl (Dulcolax) 10 mg ND QDAY PRN PRN Reason: Constipation unrelieved by MOM Cefazolin Sodium (Ancef/Sterile Water 2 Gm/20 Ml) 2 gm IV PREOP NR Stop: 04/26/17 23:59 Erythromycin (Alexey-Tab) 250 mg PO Q6HR WILI Last Admin: 04/26/17 12:29 Dose: Not Given Famotidine (Pepcid) 20 mg IV PREOP NR Stop: 04/26/17 23:59 Last Admin: 04/26/17 13:52 Dose: 20 mg Heparin Sodium (Porcine) (Heparin) 5,000 unit SUB-Q Q12H WILI Last Admin: 04/26/17 06:10 Dose: Not Given Hydrophilic Ointment (Vaseline Lip Therapy) 1 applic TP Q2HR PRN PRN Reason: Dry Lips Levetiracetam (Keppra 1,000 Mg/Ns 0.75% 100ml) 1,000 mg in 100 mls @ 400 mls/ hr IV Q12H WILI Last Admin: 04/26/17 04:57 Dose: 400 mls/hr Valproate Sodium 250 mg/ (Sodium Chloride) 102.5 mls @ 100 mls/hr IV Q8H WILI Last Admin: 04/26/17 14:00 Dose: 100 mls/hr Dextrose/Sodium Chloride (D5/0.45ns) 1,000 mls @ 42 mls/hr IV DIRECT WILI Last Admin: 04/26/17 01:53 Dose: 42 mls/hr Sodium Chloride (Nacl 0.9% 1000 Ml) 1,000 mls @ 100 mls/hr IV DIRECT WILI Stop: 04/26/17 23:59 Last Admin: 04/26/17 13:51 Dose: 100 mls/hr Potassium Chloride/Dextrose/Sod Cl (D5w/0.45% Nacl/Kcl 20 Meq) 20 meq in 1,000 mls @ 100 mls/hr IV DIRECT WILI Propofol (Diprivan 10 Mg/Ml) 1,000 mg in 100 mls @ 2.679 mls/hr IV TITR WILI; 5 MCG/KG/MIN PRN Reason: Protocol Last Admin: 04/26/17 17:30 Dose: 5 mcg/kg/min, 2.679 mls/hr Magnesium Hydroxide (Milk Of Magnesia) 30 ml PO Q4H PRN PRN Reason: Constipation Morphine Sulfate (Morphine) 4 mg IV Q10MIN PRN PRN Reason: Pain , Severe (7-10) Stop: 04/26/17 23:59 Last Admin: 04/26/17 17:51 Dose: 4 mg Multi-Ingred Cream/Lotion/Oil/Oint (Artificial Tears Ophth Oint) 1 applic OU Q4HR PRN PRN Reason: Dry Eye(s) Neomycin Sulfate (Neomycin) 1,000 mg PO 1300,1400,2300 WILI Stop: 04/26/17 23:01 Last Admin: 04/26/17 14:00 Dose: Not Given Ondansetron HCl (Zofran) 4 mg IV Q8H PRN PRN Reason: N/V unrelieved by Yenny Last Admin: 04/26/17 13:52 Dose: 4 mg Sodium Chloride (Nacl 0.9% 500 Ml) 1 ml IV DIRECT WILI Review of Systems ROS unobtainable: due to endotracheal tube Physical Examination Vital signs: Vital Signs Temp Pulse Resp BP Pulse Ox 98.2 F 92 H 20 129/78 95 04/22/17 10:08 04/22/17 10:08 04/22/17 10:08 04/22/17 10:08 04/22/17 10:08 General appearance: no acute distress (orally intubated.) Eyes: non-icteric ENT: oropharynx dry Neck: supple, no lymphadenopathy, no JVD Effort: normal Ascultation: Bilateral: clear, diminished breath sounds Cardiovascular: regular rate and rhythm, other (S1,S2, no murmurs) Gastrointestinal: hypoactive bowel sounds, other (anterior abdominal wound, dressing has old blood inferiorly, sawyer catheter, PEG tube) Integumentary: normal Extremities: no cyanosis, no edema, pulses normal, no ischemia or petechiae other (sedated, intubated) Results - Laboratory Findings CBC and BMP: 04/25/17 10:52 04/25/17 10:52 ABG POC ABG pH 7.401 (7.35-7.45) 04/26/17 17:33 POC ABG pCO2 31.7 (35-45) L 04/26/17 17:33 POC ABG pO2 258 (80-105) H 04/26/17 17:33 POC ABG HCO3 19.7 04/26/17 17:33 POC ABG Total CO2 21 04/26/17 17:33 POC ABG O2 Sat 100 04/26/17 17:33 PT/INR, D-dimer PT 14.6 Sec. (12.2-14.9) 04/26/17 06:05 INR 1.08 (0.87-1.13) 04/26/17 06:05 Abnormal lab findings: Abnormal Labs 04/22/17 04/22/17 04/25/17 10:23 10:23 10:52 WBC 4.4 L RBC 6.22 H 5.48 H MCV 69 L 69 L MCH 21 L 22 L MCHC 30 L RDW 22.4 H 21.5 H Monocytes % (Manual) 17.0 H Monocytes # (Manual) 1.0 H POC ABG pCO2 POC ABG pO2 BUN 8 L Creatinine 0.7 L Glucose POC Glucose Calcium 8.2 L ALT Total Protein Albumin 3.1 L Lipase 8 L 04/25/17 04/25/17 04/25/17 10:52 17:03 22:03 WBC RBC MCV MCH MCHC RDW Monocytes % (Manual) Monocytes # (Manual) POC ABG pCO2 POC ABG pO2 BUN Creatinine 0.6 L Glucose 71 L POC Glucose 63 L 65 L Calcium 8.0 L ALT 6 L Total Protein 6.0 L Albumin 2.7 L Lipase 04/26/17 04/26/17 04/26/17 05:35 06:45 17:33 WBC RBC MCV MCH MCHC RDW Monocytes % (Manual) Monocytes # (Manual) POC ABG pCO2 31.7 L POC ABG pO2 258 H BUN Creatinine Glucose POC Glucose 61 L 154 H Calcium ALT Total Protein Albumin Lipase - Diagnostic Findings Chest x-ray: image reviewed (elevated right hemidiaphragm, ETT in position) Assessment and Plan - Patient Problems (1) Acute respiratory failure with hypoxia Current Visit: Yes Status: Acute Plan to address problem: VAP bundle addressed VTE prophylaxis, when Ok with surgical service ABG now and in am Start weaning per protocol in the morning Analgesia Agitation management Sawyer catheter Supplemental oxygen to keep O2 sats>94% Stress ulcer prophylaxis (2) Colonic mass Current Visit: Yes Status: Acute Plan to address problem: s/p resection with primary anastomosis Management per surgical service (3) Cerebral palsy Current Visit: Yes Status: Chronic Plan to address problem: Antiseizure medications Patient is NAD in the event of cardiopulmonary arrest (4) Oropharyngeal dysphagia Current Visit: Yes Status: Acute Plan to address problem: Keep NPO for now. IV fluids. NGT to LIS (5) Seizure disorder Current Visit: Yes Status: Acute Plan to address problem: Antiseizure medications Critical care time in (mins) excluding proc time.: 45 Critical care attestation.: If time is entered above; I have spent that time in minutes in the direct care of this critically ill patient, excluding procedure time. ED Critical Care Note - Critical Care Note Total Time (mins): 45
--- NOTE | 2017-04-26 19:27 | XRay Report ---
FINAL REPORT EXAM: XR CHEST 1V AP HISTORY: ETT placement TECHNIQUE: AP portable view of the chest PRIORS: None. FINDINGS: Lines, tubes, and devices: An endotracheal tube has been placed terminating at the level of the clavicles approximately 6 cm above the braxton. Nasogastric tube has been placed terminating with the tip and side-port in the left upper quadrant of the abdomen, likely in the stomach. Numerous surgical clips throughout the mediastinum and right apex are noted. Lungs and pleura: Trachea is normal in position. Linear scarring with adjacent pleural reaction is present in the lateral left lung base. Lungs are otherwise clear of infiltrate, pleural effusion, vascular congestion, or pneumothorax. Cardiomediastinal silhouette: Cardiac and mediastinal silhouettes are unremarkable. Elevation of the right hemidiaphragm is present. Other: Bony structures are intact. IMPRESSION: No acute cardiopulmonary process seen. Chronic scarring and pleural reaction in the left lateral lung base. Satisfactory ET tube and nasogastric tube placement.
[2017-04-26] MEDS: fentaNYL DRIP Premix 2,000 MCG/100 ML BAG IV SCH (20:10)
[2017-04-26] MEDS ORDERED: ANCEF/NS 1 GM/50 ML 1 GM/50 ML BAG IV SCH (22:00)
[2017-04-26] MEDS ORDERED: ceFAZolin 1 GM in NACL 0.9% 20 ML IV SCH (22:00)
[2017-04-26] MEDS ORDERED: LEVOPHED DRIP 4 MG/NS 250 ML 4 MG/250 ML BAG IV SCH (23:00)
[2017-04-27] MEDS ORDERED: SODIUM BICARBONATE 150 MEQ in D5W 1,000 ML IV SCH (02:00)
[2017-04-27] MEDS: NEO-SYNEPHRINE 100 MG in NACL 0.9% 90 ML IV SCH ×2 (02:49→11:33)
[2017-04-27] MEDS: Vasostrict 20 UNIT in NACL 0.9% 100 ML IV SCH ×2 (02:50→13:16)
[2017-04-27] MEDS: KEPPRA 1,000 MG/NS 0.75% 100ML 1,000 MG/100 ML BAG IV SCH (05:00)
[2017-04-27] MEDS ORDERED: ZOSYN/NS 4.5GM/100ML 4.5 GM/100 ML VIAL IV SCH (06:00)
[2017-04-27] MEDS: ERY-TAB PO SCH ×2 (06:17)
[2017-04-27] MEDS: HEPARIN SUB-Q SCH ×2 (06:18→18:31)
--- NOTE | 2017-04-27 08:34 | XRay Report ---
Single view chest: Compared to 04/26/17. History: Followup or respiratory failure. Findings: Normal cardiomediastinal silhouette. Stable support system. No significant interval change in cardiopulmonary findings. No acute lung changes. Impression: No acute cardiopulmonary findings. No significant interval change.
[2017-04-27] MEDS: LEVOPHED 8 MG in NACL 0.9% 250ML 242 ML IV SCH ×2 (09:24→13:17)
--- NOTE | 2017-04-27 09:27 | Event Note ---
Date: 04/27/17 Patient s/p partial colon resection of obstructive lesion in distal transverse colon yesterday. Await surgical results. No further recommendations from a GI standpoint at this time. Will sign off. Please notify if we can be of future assistance.
[2017-04-27] MEDS ORDERED: PEPCID IV SCH (10:00)
[2017-04-27] MEDS: LACTATED RINGERS 1,000 ML IV SCH ×2 (10:40→11:32)
--- NOTE | 2017-04-27 11:10 | Progress Note ---
Assessment and Plan Assessment and plan: Patient is 61 yo man from [facility] with h/o seizre disorder, severe debilitating Cerebral palsy resulting in functional quadriplegia, leg contractures and peg tube placement who presented with abd pains. CT abd/pelvis with contrast reported as "probable colon mass near the splenic fracture which mildly obstructs..." -Small bowel obstruction: Consult to Gen. surgery -Colon mass with obstruction suspect Colon Cancer: nothing by mouth: Consult GI -Seizure disorder: Change Keppra to IV -Oropharyngeal dysphagia with PEG tube management: Hold feedings for now -Function quadriplegia: PT/OT -DVT prophylaxis: Add subcutaneous heparin Abdomen x-ray 04/23/2017 reported as colon obstruction.. Obstruction is likely in the distal transverse colon I did Call and d/w caregiver Karen Rondon in [phone] 04/26/17: d/w caregiver Karen at bedside, going for bowel surgery today, I was asked to come and sign DNR/AND form, d/w NOK Karen Rondon in pre-op area 04/27/17: Patient went for bowel resection surgery on 04/26/17, operative note not in the computer yet, so I have no idea of what happened during surgery. Patient remained intubated and was transferred to ICU. In the ICU, Mr. Tello became hypotensive and Intenvist, Dr. Schofield started Vasopressor. It appears, fecal material is leaking from surgical site and General Surgeron, Dr. Haynes, was made aware per GOLDIE Ramon. I ordered a Picc line. IV bolus are starting. CCT 35 minutes History Interval history: Patient was seen and examined. Follow-up on current diagnosis/bowel obstruction. Imaging, nursing note, chart, labs and old chart reviewed. Patient went for surgery on 04/26/17, bowel resection, operative note not in the computer yet, so i have no idea of what happened during surgery. Hospitalist Physical - Physical exam Narrative exam: GEN: severely ill appearing, intubated HEENT: pupils sluggish CVS/HEART: tachycardic, NORMAL S1S2, NO JVD, pulses present bilaterally CHEST/LUNGS: Symmetrical chest expansion, adequate air entry bilaterally GI/Abdomen: distended, hypoactive bowel sounds, midline surgical dressing intact and saturated with stool, ostomy bag present /Bladder: male uncir penis with sawyer present MSK: Contractures Neuro: CN 2-12 grossly intact, doesn't follow commands Psych: sedated - Constitutional Vitals: Temp Pulse Resp BP Pulse Ox 100 F H 119 H 17 86/44 88 04/27/17 08:00 04/27/17 09:00 04/27/17 09:00 04/27/17 09:00 04/27/17 09:00 General appearance: Present: severe distress Results - Labs CBC & Chem 7: 04/25/17 10:52 04/25/17 10:52 Labs: Laboratory Last Values WBC 4.4 K/mm3 (4.5-11.0) L 04/25/17 10:52 RBC 5.48 M/mm3 (3.65-5.03) H 04/25/17 10:52 Hgb 12.1 gm/dl (11.8-15.2) 04/25/17 10:52 Hct 38.0 % (35.5-45.6) 04/25/17 10:52 MCV 69 fl (84-94) L 04/25/17 10:52 MCH 22 pg (28-32) L 04/25/17 10:52 MCHC 32 % (32-34) 04/25/17 10:52 RDW 21.5 % (13.2-15.2) H 04/25/17 10:52 Plt Count 193 K/mm3 (140-440) 04/25/17 10:52 Lymph % (Auto) Adjuster Piano Action 04/22/17 10:23 [place] % (Auto) Adjuster Piano Action 04/22/17 10:23 Eos % (Auto) Adjuster Piano Action 04/22/17 10:23 Baso % (Auto) Adjuster Piano Action 04/22/17 10:23 Lymph # Adjuster Piano Action 04/22/17 10:23 Payette # Adjuster Piano Action 04/22/17 10:23 Eos # Adjuster Piano Action 04/22/17 10:23 Baso # Adjuster Piano Action 04/22/17 10:23 Add Manual Diff Complete 04/22/17 10:23 Total Counted 100 04/22/17 10:23 Seg Neutrophils % Adjuster Piano Action 04/22/17 10:23 Seg Neuts % (Manual) 52.0 % (40.0-70.0) 04/22/17 10:23 Band Neutrophils % 2.0 % 04/22/17 10:23 Lymphocytes % (Manual) 28.0 % (13.4-35.0) 04/22/17 10:23 Reactive Lymphs % (Man) 0 % 04/22/17 10:23 Monocytes % (Manual) 17.0 % (0.0-7.3) H 04/22/17 10:23 Eosinophils % (Manual) 1.0 % (0.0-4.3) 04/22/17 10:23 Basophils % (Manual) 0 % (0.0-1.8) 04/22/17 10:23 Metamyelocytes % 0 % 04/22/17 10:23 Myelocytes % 0 % 04/22/17 10:23 Promyelocytes % 0 % 04/22/17 10:23 Blast Cells % 0 % 04/22/17 10:23 Nucleated RBC % Not Reportable 04/22/17 10:23 Seg Neutrophils # Adjuster Piano Action 04/22/17 10:23 Seg Neutrophils # Man 3.1 K/mm3 (1.8-7.7) 04/22/17 10:23 Band Neutrophils # 0.1 K/mm3 04/22/17 10:23 Lymphocytes # (Manual) 1.7 K/mm3 (1.2-5.4) 04/22/17 10:23 Abs React Lymphs (Man) 0.0 K/mm3 04/22/17 10:23 Monocytes # (Manual) 1.0 K/mm3 (0.0-0.8) H 04/22/17 10:23 Eosinophils # (Manual) 0.1 K/mm3 (0.0-0.4) 04/22/17 10:23 Basophils # (Manual) 0.0 K/mm3 (0.0-0.1) 04/22/17 10:23 Metamyelocytes # 0.0 K/mm3 04/22/17 10:23 Myelocytes # 0.0 K/mm3 04/22/17 10:23 Promyelocytes # 0.0 K/mm3 04/22/17 10:23 Blast Cells # 0.0 K/mm3 04/22/17 10:23 WBC Morphology Not Reportable 04/22/17 10:23 Hypersegmented Neuts Not Reportable 04/22/17 10:23 Hyposegmented Neuts Not Reportable 04/22/17 10:23 Hypogranular Neuts Not Reportable 04/22/17 10:23 Smudge Cells Not Reportable 04/22/17 10:23 Toxic Granulation Not Reportable 04/22/17 10:23 Toxic Vacuolation Not Reportable 04/22/17 10:23 Dohle Bodies Not Reportable 04/22/17 10:23 Pelger-Huet Anomaly Not Reportable 04/22/17 10:23 Ananda Rods Not Reportable 04/22/17 10:23 Platelet Estimate Not Reportable 04/22/17 10:23 Clumped Platelets Not Reportable 04/22/17 10:23 Plt Clumps, EDTA Not Reportable 04/22/17 10:23 Large Platelets Not Reportable 04/22/17 10:23 Giant Platelets Not Reportable 04/22/17 10:23 Platelet Satelliting Not Reportable 04/22/17 10:23 Plt Morphology Comment Not Reportable 04/22/17 10:23 RBC Morphology Not Reportable 04/22/17 10:23 Dimorphic RBCs Not Reportable 04/22/17 10:23 Polychromasia Not Reportable 04/22/17 10:23 Hypochromasia 1+ 04/22/17 10:23 Poikilocytosis 1+ 04/22/17 10:23 Anisocytosis 2+ 04/22/17 10:23 Microcytosis 1+ 04/22/17 10:23 Macrocytosis Not Reportable 04/22/17 10:23 Spherocytes Not Reportable 04/22/17 10:23 Pappenheimer Bodies Not Reportable 04/22/17 10:23 Sickle Cells Not Reportable 04/22/17 10:23 Target Cells Not Reportable 04/22/17 10:23 Tear Drop Cells Not Reportable 04/22/17 10:23 Ovalocytes Not Reportable 04/22/17 10:23 Helmet Cells Not Reportable 04/22/17 10:23 [place] Bodies Not Reportable 04/22/17 10:23 [place] Rings Not Reportable 04/22/17 10:23 Zeenat Cells Not Reportable 04/22/17 10:23 Bite Cells Not Reportable 04/22/17 10:23 Crenated Cell Not Reportable 04/22/17 10:23 Elliptocytes Not Reportable 04/22/17 10:23 Acanthocytes (Spur) Not Reportable 04/22/17 10:23 Rouleaux Not Reportable 04/22/17 10:23 Hemoglobin C Crystals Not Reportable 04/22/17 10:23 Schistocytes Not Reportable 04/22/17 10:23 Malaria parasites Not Reportable 04/22/17 10:23 Talib Bodies Not Reportable 04/22/17 10:23 Hem Pathologist Commnt No 04/22/17 10:23 PT 14.6 Sec. (12.2-14.9) 04/26/17 06:05 INR 1.08 (0.87-1.13) 04/26/17 06:05 POC ABG pH 7.401 (7.35-7.45) 04/26/17 17:33 POC ABG pCO2 31.7 (35-45) L 04/26/17 17:33 POC ABG pO2 258 (80-105) H 04/26/17 17:33 POC ABG HCO3 19.7 04/26/17 17:33 POC ABG Total CO2 21 04/26/17 17:33 POC ABG O2 Sat 100 04/26/17 17:33 POC ABG Base Excess -5 04/26/17 17:33 FiO2 50 % 04/26/17 17:33 Sodium 138 mmol/L (137-145) 04/25/17 10:52 Potassium 4.6 mmol/L (3.6-5.0) 04/25/17 10:52 Chloride 99.8 mmol/L (98-107) 04/25/17 10:52 Carbon Dioxide 22 mmol/L (22-30) 04/25/17 10:52 Anion Gap 21 mmol/L 04/25/17 10:52 BUN 9 mg/dL (9-20) 04/25/17 10:52 Creatinine 0.6 mg/dL (0.8-1.5) L 04/25/17 10:52 Estimated GFR > 60 ml/min 04/25/17 10:52 BUN/Creatinine Ratio 15 % 04/25/17 10:52 Glucose 71 mg/dL (75-100) L 04/25/17 10:52 POC Glucose 145 (70-105) H 04/26/17 22:37 Calcium 8.0 mg/dL (8.4-10.2) L 04/25/17 10:52 Total Bilirubin 0.30 mg/dL (0.1-1.2) 04/25/17 10:52 AST 13 units/L (5-40) 04/25/17 10:52 ALT 6 units/L (7-56) L 04/25/17 10:52 Alkaline Phosphatase 77 units/L (35-129) 04/25/17 10:52 Total Protein 6.0 g/dL (6.3-8.2) L 04/25/17 10:52 Albumin 2.7 g/dL (3.9-5) L 04/25/17 10:52 Albumin/Globulin Ratio 0.8 % 04/25/17 10:52 Lipase 8 units/L (13-60) L 04/22/17 10:23 Urine Color Yellow (Yellow) 04/22/17 12:46 Urine Turbidity Clear (Clear) 04/22/17 12:46 Urine pH 6.0 (5.0-7.0) 04/22/17 12:46 Ur Specific [place] 1.015 (1.003-1.030) 04/22/17 12:46 Urine Protein <15 mg/dl mg/dL (Negative) 04/22/17 12:46 Urine Glucose (UA) Neg mg/dL (Negative) 04/22/17 12:46 Urine Ketones Neg mg/dL (Negative) 04/22/17 12:46 Urine Blood Neg (Negative) 04/22/17 12:46 Urine Nitrite Neg (Negative) 04/22/17 12:46 Urine Bilirubin Neg (Negative) 04/22/17 12:46 Urine Urobilinogen 4.0 mg/dL (<2.0) 04/22/17 12:46 Ur Leukocyte Esterase Neg (Negative) 04/22/17 12:46 Urine WBC (Auto) 2.0 /HPF (0.0-6.0) 04/22/17 12:46 Urine RBC (Auto) 1.0 /HPF (0.0-6.0) 04/22/17 12:46 U Epithel Cells (Auto) 2.0 /HPF (0-13.0) 04/22/17 12:46 Urine Bacteria (Auto) 1+ /HPF (Negative) 04/22/17 12:46 Urine Mucus Few /HPF 04/22/17 12:46
--- NOTE | 2017-04-27 11:16 | XRay Report ---
Single view chest: Compared to 04/27/17. History: PICC line placement. Findings: Tip of left PICC line mid superior vena cava. No pneumothorax or pleural effusion. No lung consolidation. Impression: Tip of left PICC line in MID superior vena cava.
[2017-04-27] MEDS: fentaNYL DRIP Premix 2,000 MCG/100 ML BAG IV SCH (11:31)
--- NOTE | 2017-04-27 13:30 | Progress Note ---
Subjective Narrative: developed hypotension last nite . with leakage of fecal material via the lower aspect of the incision , talked to body care manager as to the grave situation , hospitalist advice to transfer to Hospice non pressors Objective Vital Signs - 12hr 04/27/17 04/27/17 04/27/17 01:30 01:42 01:50 Temperature Pulse Rate 148 H Respiratory 22 Rate Blood Pressure 83/41 83/41 40/26 O2 Sat by Pulse 100 91 90 Oximetry 04/27/17 04/27/17 04/27/17 02:00 02:10 02:20 Temperature Pulse Rate 140 H 139 H 140 H Respiratory 19 19 22 Rate Blood Pressure 78/45 78/45 72/42 O2 Sat by Pulse 93 93 92 Oximetry 04/27/17 04/27/17 04/27/17 02:30 02:40 02:50 Temperature Pulse Rate 141 H 145 H 135 H Respiratory 28 H 30 H 22 Rate Blood Pressure 40/26 93/50 82/49 O2 Sat by Pulse 92 91 88 Oximetry 04/27/17 04/27/17 04/27/17 03:00 03:10 03:20 Temperature Pulse Rate 131 H 128 H 130 H Respiratory 14 17 16 Rate Blood Pressure 92/57 92/57 83/53 O2 Sat by Pulse 91 91 90 Oximetry 04/27/17 04/27/17 04/27/17 03:30 03:40 03:50 Temperature Pulse Rate 124 H 124 H 127 H Respiratory 16 16 16 Rate Blood Pressure 71/50 71/50 101/43 O2 Sat by Pulse 90 92 90 Oximetry 04/27/17 04/27/17 04/27/17 04:00 04:10 04:20 Temperature 98.9 F Pulse Rate 126 H 125 H 126 H Respiratory 16 16 16 Rate Blood Pressure 96/43 96/43 95/49 O2 Sat by Pulse 89 90 90 Oximetry 04/27/17 04/27/17 04/27/17 04:30 04:40 04:50 Temperature Pulse Rate 126 H 126 H 123 H Respiratory 16 16 16 Rate Blood Pressure 90/51 90/51 94/31 O2 Sat by Pulse 89 Oximetry 04/27/17 04/27/17 04/27/17 05:00 05:10 05:20 Temperature Pulse Rate 126 H 132 H 125 H Respiratory 16 17 14 Rate Blood Pressure 94/31 90/51 92/42 O2 Sat by Pulse Oximetry 04/27/17 04/27/17 04/27/17 05:30 05:40 05:50 Temperature Pulse Rate 128 H 125 H 124 H Respiratory 16 16 16 Rate Blood Pressure 92/42 74/44 68/44 O2 Sat by Pulse Oximetry 04/27/17 04/27/17 04/27/17 06:00 06:10 06:20 Temperature Pulse Rate 124 H 130 H 128 H Respiratory 16 16 16 Rate Blood Pressure 79/35 79/35 80/41 O2 Sat by Pulse Oximetry 04/27/17 04/27/17 04/27/17 06:30 06:40 06:50 Temperature Pulse Rate 127 H 130 H 126 H Respiratory 16 16 16 Rate Blood Pressure 79/46 96/46 83/59 O2 Sat by Pulse 87 Oximetry 04/27/17 04/27/17 04/27/17 07:00 07:10 07:20 Temperature Pulse Rate 127 H 125 H 130 H Respiratory 16 16 17 Rate Blood Pressure 102/47 96/46 96/74 O2 Sat by Pulse 76 L 84 95 Oximetry 04/27/17 04/27/17 04/27/17 07:30 07:41 07:51 Temperature Pulse Rate 125 H 122 H 119 H Respiratory 16 16 16 Rate Blood Pressure 76/52 60/42 115/82 O2 Sat by Pulse 91 87 94 Oximetry 04/27/17 04/27/17 04/27/17 08:00 08:11 08:21 Temperature 100 F H Pulse Rate 119 H 117 H 116 H Respiratory 18 15 17 Rate Blood Pressure 83/29 76/52 75/48 O2 Sat by Pulse 95 94 94 Oximetry 04/27/17 04/27/17 04/27/17 08:31 08:41 08:51 Temperature Pulse Rate 124 H 119 H 120 H Respiratory 24 16 16 Rate Blood Pressure 75/48 85/34 77/40 O2 Sat by Pulse 94 91 87 Oximetry 04/27/17 04/27/17 04/27/17 09:00 09:11 09:21 Temperature Pulse Rate 119 H 121 H 122 H Respiratory 17 17 18 Rate Blood Pressure 86/44 86/44 93/49 O2 Sat by Pulse 88 85 84 Oximetry 04/27/17 04/27/17 04/27/17 09:31 09:41 09:51 Temperature Pulse Rate 124 H 135 H 128 H Respiratory 19 28 H 16 Rate Blood Pressure 73/41 73/41 89/49 O2 Sat by Pulse 87 84 84 Oximetry 04/27/17 04/27/17 04/27/17 10:01 10:11 10:20 Temperature Pulse Rate 127 H 127 H 125 H Respiratory 19 15 16 Rate Blood Pressure 92/73 92/73 92/73 O2 Sat by Pulse 86 Oximetry 04/27/17 04/27/17 04/27/17 10:30 10:40 10:50 Temperature Pulse Rate 126 H 122 H 124 H Respiratory 17 16 16 Rate Blood Pressure 92/73 92/73 125/92 O2 Sat by Pulse 89 88 Oximetry 04/27/17 04/27/17 04/27/17 11:00 11:10 11:20 Temperature Pulse Rate 123 H 121 H 130 H Respiratory 16 17 22 Rate Blood Pressure 125/92 97/60 97/60 O2 Sat by Pulse 89 94 80 L Oximetry 04/27/17 04/27/17 04/27/17 11:30 11:40 11:50 Temperature Pulse Rate 126 H 124 H 122 H Respiratory 16 16 19 Rate Blood Pressure 92/62 92/62 103/38 O2 Sat by Pulse 76 L 88 90 Oximetry 04/27/17 04/27/17 11:59 12:00 Temperature Pulse Rate 122 H 121 H Respiratory 19 Rate Blood Pressure 103/38 103/38 O2 Sat by Pulse 89 89 Oximetry - Labs 04/25/17 10:52 04/25/17 10:52
--- NOTE | 2017-04-27 13:42 | Progress Note ---
Assessment and Plan - Patient Problems (1) Septic shock Current Visit: Yes Status: Acute Plan to address problem: Septic shock secondary to fecal peritonitis. Patient is not a candidate for the OR as per surgery Discussed extensively with the patient's family--cousin(who is POA) at the bedside. With the patient on 3 vasopressors and fecal peritonitis--his prognosis is grave. They verbalized understanding and all their questions were answered. They had apparently received a call from the surgical service, stating that the patient is moribund and they all decided that they do not want him to suffer. They have elected not to escalate care and in the event of cardiopulmonary arrest, do not resuscitate. This decision was conveyed to case management. Hospice consult has been placed. (2) Acute respiratory failure with hypoxia Current Visit: Yes Status: Acute Plan to address problem: VAP bundle addressed VTE prophylaxis, when Ok with surgical service Hold off on any weaning at this time based on the change in goals of care Analgesia Agitation management Sawyer catheter Supplemental oxygen to keep O2 sats>94% (3) Colonic mass Current Visit: Yes Status: Acute Plan to address problem: s/p resection with primary anastomosis Appears to have an anastomotic leak with bowel spillage Management per surgical service (4) Cerebral palsy Current Visit: Yes Status: Chronic Plan to address problem: Antiseizure medications Patient is AND in the event of cardiopulmonary arrest (5) Oropharyngeal dysphagia Current Visit: Yes Status: Acute Plan to address problem: Keep NPO for now. IV fluids. NGT to LIS (6) Seizure disorder Current Visit: Yes Status: Acute Plan to address problem: Antiseizure medications Subjective Date of service: 04/27/17 Principal diagnosis: bowel obstruction Interval history: Patient seen and examined. Vitals, labs, medications, chart reviewed. Overnight events---- became hypotensive overnight, requiring volume resuscitation and vasopressor support. Has fecal soilage of the abdominal wound. Discussed during interdisciplinary rounds. Objective - Exam Narrative Exam: GEN: severely ill appearing, intubated HEENT: pupils sluggish CVS/HEART: tachycardic, NORMAL S1S2, NO JVD, pulses present bilaterally CHEST/LUNGS: Symmetrical chest expansion, adequate air entry bilaterally GI/Abdomen: distended, hypoactive bowel sounds, midline surgical dressing intact and saturated with stool /Bladder: normal male external genitalia, sawyer present MSK: Contractures Neuro: CN 2-12 grossly intact, doesn't follow commands Psych: sedated Vital Signs - 12hr 04/27/17 04/27/17 04/27/17 01:50 02:00 02:10 Temperature Pulse Rate 140 H 139 H Respiratory 19 19 Rate Blood Pressure 40/26 78/45 78/45 O2 Sat by Pulse 90 93 93 Oximetry 04/27/17 04/27/17 04/27/17 02:20 02:30 02:40 Temperature Pulse Rate 140 H 141 H 145 H Respiratory 22 28 H 30 H Rate Blood Pressure 72/42 40/26 93/50 O2 Sat by Pulse 92 92 91 Oximetry 04/27/17 04/27/17 04/27/17 02:50 03:00 03:10 Temperature Pulse Rate 135 H 131 H 128 H Respiratory 22 14 17 Rate Blood Pressure 82/49 92/57 92/57 O2 Sat by Pulse 88 91 91 Oximetry 04/27/17 04/27/17 04/27/17 03:20 03:30 03:40 Temperature Pulse Rate 130 H 124 H 124 H Respiratory 16 16 16 Rate Blood Pressure 83/53 71/50 71/50 O2 Sat by Pulse 90 90 92 Oximetry 04/27/17 04/27/17 04/27/17 03:50 04:00 04:10 Temperature 98.9 F Pulse Rate 127 H 126 H 125 H Respiratory 16 16 16 Rate Blood Pressure 101/43 96/43 96/43 O2 Sat by Pulse 90 89 90 Oximetry 04/27/17 04/27/17 04/27/17 04:20 04:30 04:40 Temperature Pulse Rate 126 H 126 H 126 H Respiratory 16 16 16 Rate Blood Pressure 95/49 90/51 90/51 O2 Sat by Pulse 90 89 Oximetry 04/27/17 04/27/17 04/27/17 04:50 05:00 05:10 Temperature Pulse Rate 123 H 126 H 132 H Respiratory 16 16 17 Rate Blood Pressure 94/31 94/31 90/51 O2 Sat by Pulse Oximetry 04/27/17 04/27/17 04/27/17 05:20 05:30 05:40 Temperature Pulse Rate 125 H 128 H 125 H Respiratory 14 16 16 Rate Blood Pressure 92/42 92/42 74/44 O2 Sat by Pulse Oximetry 04/27/17 04/27/17 04/27/17 05:50 06:00 06:10 Temperature Pulse Rate 124 H 124 H 130 H Respiratory 16 16 16 Rate Blood Pressure 68/44 79/35 79/35 O2 Sat by Pulse Oximetry 04/27/17 04/27/17 04/27/17 06:20 06:30 06:40 Temperature Pulse Rate 128 H 127 H 130 H Respiratory 16 16 16 Rate Blood Pressure 80/41 79/46 96/46 O2 Sat by Pulse Oximetry 04/27/17 04/27/17 04/27/17 06:50 07:00 07:10 Temperature Pulse Rate 126 H 127 H 125 H Respiratory 16 16 16 Rate Blood Pressure 83/59 102/47 96/46 O2 Sat by Pulse 87 76 L 84 Oximetry 04/27/17 04/27/17 04/27/17 07:20 07:30 07:41 Temperature Pulse Rate 130 H 125 H 122 H Respiratory 17 16 16 Rate Blood Pressure 96/74 76/52 60/42 O2 Sat by Pulse 95 91 87 Oximetry 04/27/17 04/27/17 04/27/17 07:51 08:00 08:11 Temperature 100 F H Pulse Rate 119 H 119 H 117 H Respiratory 16 18 15 Rate Blood Pressure 115/82 83/29 76/52 O2 Sat by Pulse 94 95 94 Oximetry 04/27/17 04/27/17 04/27/17 08:21 08:31 08:41 Temperature Pulse Rate 116 H 124 H 119 H Respiratory 17 24 16 Rate Blood Pressure 75/48 75/48 85/34 O2 Sat by Pulse 94 94 91 Oximetry 04/27/17 04/27/17 04/27/17 08:51 09:00 09:11 Temperature Pulse Rate 120 H 119 H 121 H Respiratory 16 17 17 Rate Blood Pressure 77/40 86/44 86/44 O2 Sat by Pulse 87 88 85 Oximetry 04/27/17 04/27/17 04/27/17 09:21 09:31 09:41 Temperature Pulse Rate 122 H 124 H 135 H Respiratory 18 19 28 H Rate Blood Pressure 93/49 73/41 73/41 O2 Sat by Pulse 84 87 84 Oximetry 04/27/17 04/27/17 04/27/17 09:51 10:01 10:11 Temperature Pulse Rate 128 H 127 H 127 H Respiratory 16 19 15 Rate Blood Pressure 89/49 92/73 92/73 O2 Sat by Pulse 84 86 Oximetry 04/27/17 04/27/17 04/27/17 10:20 10:30 10:40 Temperature Pulse Rate 125 H 126 H 122 H Respiratory 16 17 16 Rate Blood Pressure 92/73 92/73 92/73 O2 Sat by Pulse 89 88 Oximetry 04/27/17 04/27/17 04/27/17 10:50 11:00 11:10 Temperature Pulse Rate 124 H 123 H 121 H Respiratory 16 16 17 Rate Blood Pressure 125/92 125/92 97/60 O2 Sat by Pulse 89 94 Oximetry 04/27/17 04/27/17 04/27/17 11:20 11:30 11:40 Temperature Pulse Rate 130 H 126 H 124 H Respiratory 22 16 16 Rate Blood Pressure 97/60 92/62 92/62 O2 Sat by Pulse 80 L 76 L 88 Oximetry 04/27/17 04/27/17 04/27/17 11:50 11:59 12:00 Temperature Pulse Rate 122 H 122 H 121 H Respiratory 19 19 Rate Blood Pressure 103/38 103/38 103/38 O2 Sat by Pulse 90 89 89 Oximetry Constitutional: no acute distress (orally intubated.) Eyes: non-icteric ENT: oropharynx dry Neck: supple, no lymphadenopathy, no JVD Effort: normal Ascultation: Bilateral: clear, diminished breath sounds Cardiovascular: regular rate and rhythm, other (S1,S2, no murmurs) Gastrointestinal: hypoactive bowel sounds, other (anterior abdominal wound, dressing has old blood inferiorly, sawyer catheter, PEG tube) Integumentary: normal Extremities: no cyanosis, no edema, pulses normal, no ischemia or petechiae Neurologic: other (sedated, intubated) CBC and BMP: 04/25/17 10:52 04/25/17 10:52 ABG, PT/INR, D-dimer: ABG POC ABG pH 7.401 (7.35-7.45) 04/26/17 17:33 POC ABG pCO2 31.7 (35-45) L 04/26/17 17:33 POC ABG pO2 258 (80-105) H 04/26/17 17:33 POC ABG HCO3 19.7 04/26/17 17:33 POC ABG Total CO2 21 04/26/17 17:33 POC ABG O2 Sat 100 04/26/17 17:33 PT/INR, D-dimer PT 14.6 Sec. (12.2-14.9) 04/26/17 06:05 INR 1.08 (0.87-1.13) 04/26/17 06:05 Abnormal lab findings: Abnormal Labs 04/22/17 04/22/17 04/25/17 10:23 10:23 10:52 WBC 4.4 L RBC 6.22 H 5.48 H MCV 69 L 69 L MCH 21 L 22 L MCHC 30 L RDW 22.4 H 21.5 H Monocytes % (Manual) 17.0 H Monocytes # (Manual) 1.0 H POC ABG pCO2 POC ABG pO2 BUN 8 L Creatinine 0.7 L Glucose POC Glucose Calcium 8.2 L ALT Total Protein Albumin 3.1 L Lipase 8 L 04/25/17 04/25/17 04/25/17 10:52 17:03 22:03 WBC RBC MCV MCH MCHC RDW Monocytes % (Manual) Monocytes # (Manual) POC ABG pCO2 POC ABG pO2 BUN Creatinine 0.6 L Glucose 71 L POC Glucose 63 L 65 L Calcium 8.0 L ALT 6 L Total Protein 6.0 L Albumin 2.7 L Lipase 04/26/17 04/26/17 04/26/17 05:35 06:45 17:33 WBC RBC MCV MCH MCHC RDW Monocytes % (Manual) Monocytes # (Manual) POC ABG pCO2 31.7 L POC ABG pO2 258 H BUN Creatinine Glucose POC Glucose 61 L 154 H Calcium ALT Total Protein Albumin Lipase 04/26/17 22:37 WBC RBC MCV MCH MCHC RDW Monocytes % (Manual) Monocytes # (Manual) POC ABG pCO2 POC ABG pO2 BUN Creatinine Glucose POC Glucose 145 H Calcium ALT Total Protein Albumin Lipase Chest x-ray: image reviewed Allied health notes reviewed: RT
[2017-04-27] MEDS ORDERED: VANCOMYCIN 1,250 MG in NACL 0.9% 250ML 250 ML IV ONE (14:00)
--- NOTE | 2017-04-27 14:21 | Discharge Summary ---
Providers - Providers Date of Admission: 04/22/17 15:33 Date of discharge: 04/27/17 Attending physician: JUAN ANTONIO MELLO 04/22/17 15:08 Consult to Physician [CONS] Urgent Consulting Provider: ALEIDA HAGEN Reason For Exam: probable colon mass mildly obstructing Place consult to:: SURGERY Notified:: y Was contact made?: Yes If yes, spoke with:: DR HAGEN 04/23/17 14:14 Consult to Physician [CONS] Routine Consulting Provider: TARAN WATTS Reason For Exam: colon mass Place consult to:: dr. watts Notified:: answering service Phone number called:: Was contact made?: Yes If yes, spoke with:: lidia Time called:: 09:32 04/23/17 14:15 Consult to Wound/ET Nurse [CONS] Routine Reason For Exam: wound eval Physical Therapy Evaluation and Treat [CONS] Routine Comment: Reason For Exam: contractures 04/26/17 16:52 Consult to Dietitian/Nutrition [CONS] Routine Physician Instructions: Reason For Exam: Reason for Consult: Diet education 04/26/17 20:41 Consult to Physician [CONS] Urgent Consulting Provider: LEO CEDENO Reason For Exam: CCU admit Place consult to:: Dr. Schofield Notified:: yes Was contact made?: Yes 04/27/17 09:16 Consult to PICC Line RN [CONS] Urgent Reason For Exam: multiple vasopressors Type Line:: PICC 04/27/17 10:17 Consult to Wound/ET Nurse [CONS] Routine Reason For Exam: abdominal incision Primary care physician: TIMBER SIZER OPERATOR Hospitalization Condition: Poor Hospital course: Patient is 61 yo man from [facility] with h/o seizre disorder, severe debilitating Cerebral palsy resulting in functional quadriplegia, leg contractures and peg tube placement who presented with abd pains. CT abd/pelvis with contrast reported as "probable colon mass near the splenic fracture which mildly obstructs..." -Small bowel obstruction: Consult to Gen. surgery -Colon mass with obstruction suspect Colon Cancer: nothing by mouth: Consult GI -Seizure disorder: Change Keppra to IV -Oropharyngeal dysphagia with PEG tube management: Hold feedings for now -Function quadriplegia: PT/OT -DVT prophylaxis: Add subcutaneous heparin Abdomen x-ray 04/23/2017 reported as colon obstruction.. Obstruction is likely in the distal transverse colon I did Call and d/w caregiver Karen Rondon in [phone] 04/26/17: d/w caregiver Karen at bedside, going for bowel surgery today, I was asked to come and sign DNR/AND form, d/w NOK Karen Rondon in pre-op area 04/27/17: Patient went for bowel resection surgery on 04/26/17, operative note not in the computer yet, so I have no idea of what happened during surgery. Patient remained intubated and was transferred to ICU. In the ICU, Mr. Tello became hypotensive and Intenvist, Dr. Schofield started Vasopressor. It appears, fecal material is leaking from surgical site and General Surgeron, Dr. Hagen, was made aware per GOLDIE Ramon. I ordered a Picc line. IV bolus are starting. CCT 35 minutes I was made aware that patient is going to inpatient hospice. Disposition: DC-01 TO HOME OR SELFCARE Time spent for discharge: 31 minutes Core Measure Documentation - Palliative Care Palliative Care/ Comfort Measures: Hospice Care - Core Measures Any of the following diagnoses?: none - VTE Discharge Requirements Deep Vein Thrombosis/Pulmonary Embolism Present on Admission: No Has pt received <5 days of overlap therapy or INR<2.0: No Anticoagulant overlap therapy prescribed at discharge: No Contraindication No Overlap Therapy order at DC: Not Indicated Exam - Physical Exam Narrative exam: GEN: severely ill appearing, intubated HEENT: pupils sluggish CVS/HEART: tachycardic, NORMAL S1S2, NO JVD, pulses present bilaterally CHEST/LUNGS: Symmetrical chest expansion, adequate air entry bilaterally GI/Abdomen: distended, hypoactive bowel sounds, midline surgical dressing intact and saturated with stool, ostomy bag present /Bladder: male uncir penis with sawyer present MSK: Contractures Neuro: CN 2-12 grossly intact, doesn't follow commands Psych: sedated - Constitutional Vitals: Temp Pulse Resp BP Pulse Ox 100 F H 121 H 19 103/38 89 04/27/17 08:00 04/27/17 12:00 04/27/17 12:00 04/27/17 12:00 04/27/17 12:00 Plan Follow up with: PRIMARY CARE, [Primary Care Provider] - 3-5 Days
--- NOTE | 2017-04-27 14:32 | Operative Report ---
PREOPERATIVE DIAGNOSIS: Obstructing lesion, distal transverse colon. POSTOPERATIVE DIAGNOSES: 1. Obstructing lesion, distal transverse colon. 2. Status post insertion of gastrostomy tube several months ago. 3. Multiple strokes in the past many years back. DESCRIPTION OF PROCEDURE: This man apparently was found to have a distended abdomen. He had nausea and vomiting. At one point, he was in a prison. He was transferred here for further evaluation. CAT scan showed evidence of obstructing mass or obstructing lesion in the distal transverse colon. I saw the x-rays with Dr. Hansen, our radiologist. Had a lengthy talk with his caregiver. Apparently, he has nobody from the family. I told this to her that this needs to be addressed surgically and she gave us the okay. I did discuss with her that we may need to put a do not resuscitate close on him with the operative report intraoperatively and postoperatively. FINDINGS: The patient had lots of adhesions between the omentum and the anterior abdominal wall. The colon was very superiorly to the left upper aspect. They had to dissect it slowly. I did have to take some omentum. I could feel the mass. It is very hard. It is about 3 x 3 cm located in the transverse colon, so slowly I was able to dissect it free. I used the MICHAEL to transect that mass with a good 3 cm on each side. The exposure was not good in an elderly debilitated man. ANESTHESIA: General. BLOOD LOSS: About 200 mL. DESCRIPTION OF PROCEDURE: With the patient in supine position, prepped and draped in usual fashion. I made a midline incision in the supraumbilical area. I was able to dissect this free and then the anastomosis was performed using the MICHAEL-75 in the usual fashion. Then, the opening was closed with a continuous stitch of 3-0 Vicryl and then with interrupted stitches of the same for the seromuscular area. We were well satisfied, we had good hemostasis. Then, at that point, the abdominal cavity was closed using for that purpose continuous stitch of #1 Vicryl adopted with the same every 2 to 3 cm. A bandage was applied. The patient was then transferred to the recovery room in good condition. We did close the skin with nicholas. JOB# [id number] RBK/NTS MTDD
[2017-04-27] MEDS ORDERED: LEVOPHED DRIP 4 MG/NS 250 ML 4 MG/250 ML BAG IV SCH (17:13)
[2017-04-27 18:32] VITALS: BP 101/74
== END 2017-04-27 19:10 | disposition hospice, inpatient (51) | DRG 329 ==
LOC: ED 10:01 → 3A 15:33 → CC1 04-26 17:37
PROVIDERS: ADMIT Internal Medicine; ATTEND Internal Medicine
PROC: 3E0234Z Introduction of Serum, Toxoid and Vaccine into Muscle, Percutaneous Approach (ICD-10-PCS; 2017-04-24)
PROC: 5A1945Z Respiratory Ventilation, 24-96 Consecutive Hours (ICD-10-PCS; 2017-04-26)
PROC: 4A033R1 Measurement of Arterial Saturation, Peripheral, Percutaneous Approach (ICD-10-PCS; 2017-04-26)
PROC: 02HV33Z Insertion of Infusion Device into Superior Vena Cava, Percutaneous Approach (ICD-10-PCS; principal; 2017-04-27)
PROC: 0DTL0ZZ Resection of Transverse Colon, Open Approach (ICD-10-PCS; 2017-04-27)
PROC: 0DBU0ZZ Excision of Omentum, Open Approach (ICD-10-PCS; 2017-04-27)
DX: C18.4 Malignant neoplasm of transverse colon (principal); R53.2 Functional quadriplegia; A41.9 Sepsis, unspecified organism; K65.9 Peritonitis, unspecified; R65.21 Severe sepsis with septic shock; J96.01 Acute respiratory failure with hypoxia; K56.600 Partial intestinal obstruction, unspecified as to cause; G80.9 Cerebral palsy, unspecified; K21.9 Gastro-esophageal reflux disease without esophagitis; G40.909 Epilepsy, unspecified, not intractable, without status epilepticus; K44.9 Diaphragmatic hernia without obstruction or gangrene; Z23 Encounter for immunization; Z82.49 Family history of ischemic heart disease and other diseases of the circulatory system
CPT/HCPCS: 36415; 36600; 71010; 74000; 74177; 80053; 81001; 82378; 82803; 82962; 83690; 85007; 85025; 85027; 85610; 87070; 87205; 88305; 88307; 90471; 90686; 90732; 94002; 94003; G0008; G0009; G8978-GP; G8979-GP; G8980-GP; J0690; J1170; J1644; J1953; J2270; J2370; J2405; J2543; J2704; J2710; J3010; J3370; J7030; J7040; J7050; J7070; J7120; Q9967